=== PATIENT | female | born 1990 | race Caucasian/White ===

== ENCOUNTER 2019-05-01 14:46 | Emergency (ER) | payer SELFPAY ==
[2019-05-01 14:59] VITALS: BP 190/108; PULSE 83; RESP 18; TEMP 36.7; O2SAT 95; BMI 49.9
[2019-05-01 18:26] LABS: Basophils % 0.4 %; Eosinophils # 0.2 10^3/uL (0.0-0.8); Eosinophils % 2.5 %; Hemoglobin 13.7 g/dL (11.5-15.3); Lymphocytes # 2.8 10^3/uL (0.8-4.8); Mean Corpuscular HGB Conc 31.9 g/dL (30.0-36.0); Mean Corpuscular Hemoglobin 28.1 pg (28.0-34.0); Mean Corpuscular Volume 88.3 fL (81-99); Mean Platelet Volume 10.1 fL (7.4-10.4); Monocytes # 0.5 10^3/uL (0.2-0.9); Monocytes % 6.4 %; Neutrophils # 3.7 10^3/uL (1.8-7.7); Neutrophils % 51.4 %; Nucleated Red Blood Cells % 0 %; Platelet Count 298 10^3/cmm (130-400); Red Blood Count 4.87 10^6/uL (4.1-5.3); Red Cell Distribution Width 12.5 % (12.1-15.1); White Blood Count 7.2 10^3/uL (4.0-10.0)
[2019-05-01 18:33] LABS: INR 1.04 (0.8-1.2); Partial Thromboplastin Time 26.3 SECONDS (23.9-36.7)
[2019-05-01 18:41] LABS: Alanine Aminotransferase 23 U/L (0-33); Albumin Level 4.3 g/dL (3.5-5.2); Alkaline Phosphatase 105 IU/L (35-105); Aspartate Amino Transferase 12 U/L (0-32); Blood Urea Nitrogen 9 mg/dL (6-20); Calcium 9.7 mg/Dl (8.6-10.0); Carbon Dioxide 25 mmol/L (22-29); Chloride 100 mmol/L (98-107); Globulin 2.8 g/dL (1.3-4.6); Glucose 246 mg/dL (74-109); Sodium 135 mmol/L (136-145); Total Bilirubin 0.3 mg/dL (0.15-1.2); Total Protein 7.1 g/dL (6.6-8.7)
--- NOTE | 2019-05-01 19:01 | ED_ITS ---
Documented by User: GRADY Brooks 05/03/19 02:02 HPI - GI Bleed General: Chief complaint: GI Bleed Stated complaint: possible blood in puke Time Seen by Provider: 05/01/19 19:01 History of Present Illness: HPI Narrative: Patient is a 29-year-old female comes into the emergency department with nausea, vomiting, diarrhea for the past 3 days. Has not been able to keep any food or drink down for the past 3 days. She says she's vomited 4-5+ times a day and diarrhea 4-5+ times a day for the past 3 days. Diarrhea is just brown liquid blood in the stool. Vomit today appeared to have some red color possible blood in it. Denies eating anything that could've given her any food poisoning and denies any sick contacts that she is aware of. Patient states she does have some right flank pain that started within the last day or 2.Denies any fever, chills, shortness of breath, chest pain, sore throat, nasal drainage, cough, abdominal pain, hematuria, dysuria, Vaginal discharge. Review of Systems General: Reports: 10 or more systems reviewed and unremarkable except in HPI and below PFSH ED PFSH: Statuses (acute, chronic, etc) shown below reflect problem list status as previously entered and may not be historically accurate Social History Smoking and tobacco status: current every day smoker Female Reproductive History: Date of last menstrual period: 04/17/19 Physical Exam Const: COMMON NORMALS: oriented x3 HENMT: COMMON NORMALS: normocephalic HEAD & SCALP: normocephalic MOUTH: moist mucous membranes abnormal (Mild dehydration) THROAT: posterior oropharynx normal and uvula midline Neck/C-Spine: COMMON NORMALS: supple GENERAL: Yes normal visual inspection Resp: COMMON NORMALS: normal respiratory effort, no retractions, no use of accessory muscles and clear to auscultation bilaterally AUSCULTATION: clear to auscultation bilaterally Cardio: COMMON NORMALS: regular rate, regular rhythm, S1 normal heart sound, S2 normal heart sound, no gallops, no clicks, no murmurs and peripheral pulses 2+ throughout RATE: regular rate RHYTHM: regular rhythm HEART SOUNDS: S1 normal and S2 normal PERIPHERAL PULSES: pulses 2+ throughout GI: COMMON NORMALS: normal to inspection, nondistended, normoactive bowel margarito nds, soft to palpation, non-tender and no masses PALPATION: Yes soft : BLADDER/KIDNEY EXAM: Yes CVA tenderness Back/Pelvis: GENERAL BACK: Yes CVA tenderness CVA tenderness: right and Yes tenderness (Right flank) Neuro: COMMON NORMALS: oriented x3 Course ED course: Patient had no episodes of vomiting while in the ED and was able to keep PO fluids down. Vital Signs: Vital signs: Vital Signs Temperature 98.1 F 05/01/19 14:59 Pulse Rate 76 05/02/19 00:49 Respiratory Rate 16 05/02/19 00:49 Blood Pressure 163/91 05/02/19 00:49 Pulse Oximetry 95 05/02/19 00:49 MDM - GI Bleed Lab Data: Attestation: I reviewed the patient's lab results. Labs: Lab Results 05/01/19 05/01/19 05/01/19 Range/Units 17:57 17:57 17:57 WBC 7.2 (4.0-10.0) 10^3/ uL RBC 4.87 (4.1-5.3) 10^6/u L Hgb 13.7 (11.5-15.3) g/dL Hct 43.0 (37.0-47.0) % MCV 88.3 (81-99) fL MCH 28.1 (28.0-34.0) pg MCHC 31.9 (30.0-36.0) g/dL RDW 12.5 (12.1-15.1) % Plt Count 298 (130-400) 10^3/c mm MPV 10.1 (7.4-10.4) fL Neut % (Auto) 51.4 % Lymph % (Auto) 39.0 % [place] % (Auto) 6.4 % Eos % (Auto) 2.5 % Baso % (Auto) 0.4 % Neut # (Auto) 3.7 (1.8-7.7) 10^3/u L Lymph # (Auto) 2.8 (0.8-4.8) 10^3/u L [place] # (Auto) 0.5 (0.2-0.9) 10^3/u L Eos # (Auto) 0.2 (0.0-0.8) 10^3/u L Baso # (Auto) 0.0 (0.0-0.1) 10^3/u L Nucleated RBC % (a uto) 0 % Nucleated RBCs # 0.0 /100WBC PT 13.90 H (10.5-13.3) SECO NDS INR 1.04 (0.8-1.2) APTT 26.3 (23.9-36.7) SECO NDS Sodium 135 L (136-145) mmol/L Potassium 4.0 (3.5-5.1) mmol/L Chloride 100 (98-107) mmol/L Carbon Dioxide 25 (22-29) mmol/L Anion Gap 14.0 (5-19) BUN 9 (6-20) mg/dL Creatinine 0.5 (0.5-0.9) mg/dL GFR Calculation 148.0 H (90-130) mL/min Glucose 246 H (74-109) mg/dL Calcium 9.7 (8.6-10.0) mg/Dl Total Bilirubin 0.3 (0.15-1.2) mg/dL AST 12 (0-32) U/L ALT 23 (0-33) U/L Alkaline Phosphata se 105 (35-105) IU/L Total Protein 7.1 (6.6-8.7) g/dL Albumin 4.3 (3.5-5.2) g/dL Globulin 2.8 (1.3-4.6) g/dL HCG, Qual (Negative) Urine Color (Yellow) Urine Appearance (CLEAR) Urine pH (5-7) Ur Specific Gravit y (1.005-1.030) Urine Protein (Negative) Urine Glucose (UA) (Normal) Urine Ketones (Negative) Urine Occult Blood (Negative) Urine Nitrate (Negative) Urine Bilirubin (NEGATIVE) Urine Urobilinogen (Negative) mg/dL Ur Leukocyte Camille ase (Negative) Urine RBC (0-2) /hpf Urine WBC (0-5) /hpf Ur Squamous Epith Cells (0-5) Urine Bacteria (NONE) Urine Mucus Blood Type Antibody Screen 05/01/19 05/01/19 05/01/19 Range/Units 17:57 17:57 20:05 WBC (4.0-10.0) 10^3/ uL RBC (4.1-5.3) 10^6/u L Hgb (11.5-15.3) g/dL Hct (37.0-47.0) % MCV (81-99) fL MCH (28.0-34.0) pg MCHC (30.0-36.0) g/dL RDW (12.1-15.1) % Plt Count (130-400) 10^3/c mm MPV (7.4-10.4) fL Neut % (Auto) % Lymph % (Auto) % [place] % (Auto) % Eos % (Auto) % Baso % (Auto) % Neut # (Auto) (1.8-7.7) 10^3/u L Lymph # (Auto) (0.8-4.8) 10^3/u L [place] # (Auto) (0.2-0.9) 10^3/u L Eos # (Auto) (0.0-0.8) 10^3/u L Baso # (Auto) (0.0-0.1) 10^3/u L Nucleated RBC % (a uto) % Nucleated RBCs # /100WBC PT (10.5-13.3) SECO NDS INR (0.8-1.2) APTT (23.9-36.7) SECO NDS Sodium (136-145) mmol/L Potassium (3.5-5.1) mmol/L Chloride (98-107) mmol/L Carbon Dioxide (22-29) mmol/L Anion Gap (5-19) BUN (6-20) mg/dL Creatinine (0.5-0.9) mg/dL GFR Calculation (90-130) mL/min Glucose (74-109) mg/dL Calcium (8.6-10.0) mg/Dl Total Bilirubin (0.15-1.2) mg/dL AST (0-32) U/L ALT (0-33) U/L Alkaline Phosphata se (35-105) IU/L Total Protein (6.6-8.7) g/dL Albumin (3.5-5.2) g/dL Globulin (1.3-4.6) g/dL HCG, Qual Negative (Negative) Urine Color Yellow (Yellow) Urine Appearance Cloudy (CLEAR) Urine pH 5 (5-7) Ur Specific Gravit y 1.330 H (1.005-1.030) Urine Protein 1+ H (Negative) Urine Glucose (UA) 4+ H (Normal) Urine Ketones 1+ H (Negative) Urine Occult Blood Neg (Negative) Urine Nitrate Negative (Negative) Urine Bilirubin Neg (NEGATIVE) Urine Urobilinogen Norm (Negative) mg/dL Ur Leukocyte Camille ase Negative (Negative) Urine RBC 0-4 H (0-2) /hpf Urine WBC 15-25 H (0-5) /hpf Ur Squamous Epith Cells 0-4 H (0-5) Urine Bacteria 1+ H (NONE) Urine Mucus 1+ Blood Type O Positive Antibody Screen Negative Discharge Plan Discharge Patient Disposition: Home, Self-Care Clinical Impression: Urinary tract bacterial infections Condition: Stable Prescriptions: New Zofran 4 mg tablet 4 mg PO DAILY Qty: 10 RF: 0 Keflex 500 mg capsule 500 mg PO BID 7 Days Qty: 14 RF: 0 Discharge Orders: Discharge Order (Routine); Ordered 05/02/19 Ordered By: Nicholas Dhillon Discharge Diet: Advance as tolerated Discharge Activity: Increase activity as tolerated Activity Restrictions/Additional Instructions: Follow-up with her primary care doctor in 5-7 days for reevaluation. Take Tylenol or ibuprofen as needed for fevers and pain. Take full course of antib iotic as prescribed. Take the prescribed Zofran as needed for nausea. Make sure to drink plenty of fluids and stay hydrated. Return to ED if symptoms worsen. Discharge Date/Time: 05/02/19 00:50 Coding Level of Care Code ED Tune Up Mechanic for Chg Fwd Documented by User: Pamela Shabazz 05/05/19 15:32 HPI - GI Bleed General: Chief complaint: GI Bleed Stated complaint: possible blood in puke Time Seen by Provider: 05/01/19 19:01 PFSH ED PFSH: Statuses (acute, chronic, etc) shown below reflect problem list status as previously entered and may not be historically accurate Social History Smoking and tobacco status: current every day smoker Course Vital Signs: Vital signs: Vital Signs Temperature 98.1 F 05/01/19 14:59 Pulse Rate 76 05/02/19 00:49 Respiratory Rate 16 05/02/19 00:49 Blood Pressure 163/91 05/02/19 00:49 Pulse Oximetry 95 05/02/19 00:49 MDM - GI Bleed Lab Data: Labs: Lab Results 05/01/19 05/01/19 05/01/19 Range/Units 17:57 17:57 17:57 WBC 7.2 (4.0-10.0) 10^3/ uL RBC 4.87 (4.1-5.3) 10^6/u L Hgb 13.7 (11.5-15.3) g/dL Hct 43.0 (37.0-47.0) % MCV 88.3 (81-99) fL MCH 28.1 (28.0-34.0) pg MCHC 31.9 (30.0-36.0) g/dL RDW 12.5 (12.1-15.1) % Plt Count 298 (130-400) 10^3/c mm MPV 10.1 (7.4-10.4) fL Neut % (Auto) 51.4 % Lymph % (Auto) 39.0 % [place] % (Auto) 6.4 % Eos % (Auto) 2.5 % Baso % (Auto) 0.4 % Neut # (Auto) 3.7 (1.8-7.7) 10^3/u L Lymph # (Auto) 2.8 (0.8-4.8) 10^3/u L [place] # (Auto) 0.5 (0.2-0.9) 10^3/u L Eos # (Auto) 0.2 (0.0-0.8) 10^3/u L Baso # (Auto) 0.0 (0.0-0.1) 10^3/u L Nucleated RBC % (a uto) 0 % Nucleated RBCs # 0.0 /100WBC PT 13.90 H (10.5-13.3) SECO NDS INR 1.04 (0.8-1.2) APTT 26.3 (23.9-36.7) SECO NDS Sodium 135 L (136-145) mmol/L Potassium 4.0 (3.5-5.1) mmol/L Chloride 100 (98-107) mmol/L Carbon Dioxide 25 (22-29) mmol/L Anion Gap 14.0 (5-19) BUN 9 (6-20) mg/dL Creatinine 0.5 (0.5-0.9) mg/dL GFR Calculation 148.0 H (90-130) mL/min Glucose 246 H (74-109) mg/dL Calcium 9.7 (8.6-10.0) mg/Dl Total Bilirubin 0.3 (0.15-1.2) mg/dL AST 12 (0-32) U/L ALT 23 (0-33) U/L Alkaline Phosphata se 105 (35-105) IU/L Total Protein 7.1 (6.6-8.7) g/dL Albumin 4.3 (3.5-5.2) g/dL Globulin 2.8 (1.3-4.6) g/dL HCG, Qual (Negative) Urine Color (Yellow) Urine Appearance (CLEAR) Urine pH (5-7) Ur Specific Gravit y (1.005-1.030) Urine Protein (Negative) Urine Glucose (UA) (Normal) Urine Ketones (Negative) Urine Occult Blood (Negative) Urine Nitrate (Negative) Urine Bilirubin (NEGATIVE) Urine Urobilinogen (Negative) mg/dL Ur Leukocyte Camille ase (Negative) Urine RBC (0-2) /hpf Urine WBC (0-5) /hpf Ur Squamous Epith Cells (0-5) Urine Bacteria (NONE) Urine Mucus Blood Type Antibody Screen 05/01/19 05/01/19 05/01/19 Range/Units 17:57 17:57 20:05 WBC (4.0-10.0) 10^3/ uL RBC (4.1-5.3) 10^6/u L Hgb (11.5-15.3) g/dL Hct (37.0-47.0) % MCV (81-99) fL MCH (28.0-34.0) pg MCHC (30.0-36.0) g/dL RDW (12.1-15.1) % Plt Count (130-400) 10^3/c mm MPV (7.4-10.4) fL Neut % (Auto) % Lymph % (Auto) % [place] % (Auto) % Eos % (Auto) % Baso % (Auto) % Neut # (Auto) (1.8-7.7) 10^3/u L Lymph # (Auto) (0.8-4.8) 10^3/u L [place] # (Auto) (0.2-0.9) 10^3/u L Eos # (Auto) (0.0-0.8) 10^3/u L Baso # (Auto) (0.0-0.1) 10^3/u L Nucleated RBC % (a uto) % Nucleated RBCs # /100WBC PT (10.5-13.3) SECO NDS INR (0.8-1.2) APTT (23.9-36.7) SECO NDS Sodium (136-145) mmol/L Potassium (3.5-5.1) mmol/L Chloride (98-107) mmol/L Carbon Dioxide (22-29) mmol/L Anion Gap (5-19) BUN (6-20) mg/dL Creatinine (0.5-0.9) mg/dL GFR Calculation (90-130) mL/min Glucose (74-109) mg/dL Calcium (8.6-10.0) mg/Dl Total Bilirubin (0.15-1.2) mg/dL AST (0-32) U/L ALT (0-33) U/L Alkaline Phosphata se (35-105) IU/L Total Protein (6.6-8.7) g/dL Albumin (3.5-5.2) g/dL Globulin (1.3-4.6) g/dL HCG, Qual Negative (Negative) Urine Color Yellow (Yellow) Urine Appearance Cloudy (CLEAR) Urine pH 5 (5-7) Ur Specific Gravit y 1.330 H (1.005-1.030) Urine Protein 1+ H (Negative) Urine Glucose (UA) 4+ H (Normal) Urine Ketones 1+ H (Negative) Urine Occult Blood Neg (Negative) Urine Nitrate Negative (Negative) Urine Bilirubin Neg (NEGATIVE) Urine Urobilinogen Norm (Negative) mg/dL Ur Leukocyte Camille ase Negative (Negative) Urine RBC 0-4 H (0-2) /hpf Urine WBC 15-25 H (0-5) /hpf Ur Squamous Epith Cells 0-4 H (0-5) Urine Bacteria 1+ H (NONE) Urine Mucus 1+ Blood Type O Positive Antibody Screen Negative Discharge Plan Discharge Patient Disposition: Home, Self-Care Clinical Impression: Urinary tract bacterial infections Condition: Stable Prescriptions: New Zofran 4 mg tablet 4 mg PO DAILY Qty: 10 RF: 0 Keflex 500 mg capsule 500 mg PO BID 7 Days Qty: 14 RF: 0 Discharge Orders: Discharge Order (Routine); Ordered 05/02/19 Ordered By: Nicholas Dhillon Discharge Diet: Advance as tolerated Discharge Activity: Increase activity as tolerated Activity Restrictions/Additional Instructions: Follow-up with her primary care doctor in 5-7 days for reevaluation. Take Tylenol or ibuprofen as needed for fevers and pain. Take full course of antibiotic as prescribed. Take the prescribed Zofran as needed for nausea. Make sure to drink plenty of fluids and stay hydrated. Return to ED if symptoms worsen. Discharge Date/Time: 05/02/19 00:50 Coding Level of Care Code ED Tune Up Mechanic for Harley Recinos
--- NOTE | 2019-05-01 19:35 | CTR_ITS ---
PROCEDURE INFORMATION: Exam: CT Abdomen And Pelvis With Contrast Exam date and time: 05/01/2019 8:00 PM Age: 29 years old Clinical indication: Patient HX: Nausea and vomiting x 3 days. History of fall a few weeks ago. C/O continued coccyx pain. ; Additional info: Nausea, vomiting, diarrhea TECHNIQUE: Imaging protocol: Computed tomography of the abdomen and pelvis with intravenous contrast. Total DLP: 2114.77 mGy-cm Radiation optimization: All CT scans at this facility use at least one of these dose optimization techniques: automated exposure control; mA and/or kV adjustment per patient size (includes targeted exams where dose is matched to clinical indication); or iterative reconstruction. Contrast material: OMNI 300; Contrast volume: 95 ml; Contrast route: 20G LAC; COMPARISON: CT abdomen pelvis w con* [id number] 06/05/2014 6:53 AM FINDINGS: Mediastinum: A small hiatal hernia is present. Liver: There is a diffuse decrease in hepatic parenchymal density, consistent with fatty infiltration. Gallbladder and bile ducts: Normal. No calcified stones. No ductal dilation. Pancreas: Normal. No ductal dilation. Spleen: Normal. No splenomegaly. Adrenals: Normal. No mass. Kidneys and ureters: There is no evidence of hydronephrosis. There is no evidence of renal calcifications. Stomach and bowel: Unremarkable. No obstruction. No mucosal thickening. Appendix: A normal appendix is identified. Intraperitoneal space: Unremarkable. No free air. No significant fluid collection. Vasculature: There is an incidental retroaortic left renal vein. Lymph nodes: Unremarkable.No enlarged lymph nodes. Bladder: The bladder is decompressed. Reproductive: Unremarkable as visualized. Bones/joints: Unremarkable. No acute fracture. Soft tissues: There is a fat-containing umbilical hernia. CT/CT abdomen pelvis w con* [id number] IMPRESSION: No acute abnormality. No inflammatory changes. Radiation Dose CTDIVOL = (mGy): DLP = 2114.77 (mGy-cm)
[2019-05-01 19:48] LABS: HCG, Serum Qual Negative (Negative)
[2019-05-01] MEDS: ondansetron 2 mg/ML SDV 2 mL 4 MG IVP (19:55)
[2019-05-01] MEDS: sodium chloride 0.9% 1,000 ML 999 ML IV (19:56)
[2019-05-01] MEDS: iohexol 300 mg/mL 100 mL Btl IV (20:25)
[2019-05-01 21:14] LABS: Glucose Urine UA 4+ (Normal); Protein Urine 1+ (Negative); Urine Appearance Cloudy (CLEAR); Urine Color Yellow (Yellow); pH Urine 5 (5-7)
[2019-05-01 21:15] LABS: Bilirubin Urine Neg (NEGATIVE); Blood Urine Neg (Negative); Ketones Urine 1+ (Negative); Leukocyte Esterase Urine Negative (Negative); Mucus Urine 1+; Nitrate Urine Negative (Negative); RBC Urine 0-4 /hpf (0-2); Squamous Epithelial Cell Urine 0-4 (0-5); Urobilinogen Urine Norm (Negative); WBC Urine 15-25 /hpf (0-5)
[2019-05-01 21:16] LABS: Add Urine Culture? No; Bacteria Urine 1+
[2019-05-01] MEDS: ketorolac 30 mg/mL INJ IVP (21:39)
[2019-05-01] MEDS: dexamethasone 10 mg/mL INJ IVP (21:40)
[2019-05-02 00:49] VITALS: BP 163/91; PULSE 76; RESP 16; O2SAT 95
== END 2019-05-02 00:50 | disposition home or self-care (01) ==
PROVIDERS: Emergency Medicine; Emergency Provider Physician Assistant
DX: N39.0 Urinary tract infection, site not specified (principal); F17.210 Nicotine dependence, cigarettes, uncomplicated
CPT/HCPCS: 74177; 80053; 81001; 84703; 85025; 85610; 85730; 86850; 86900; 96360; 96361; 96374; 96375; 99282; J1100; J1885; J2405; J7030; Q9967

== ENCOUNTER 2019-07-04 04:50 | Emergency (ER) | payer SELFPAY ==
[2019-07-04 04:58] VITALS: BP 166/108; PULSE 100; RESP 16; TEMP 37.1; O2SAT 95; BMI 54.1
--- NOTE | 2019-07-04 05:20 | PC.NURSE ---
patient states she was in bed and woke up because she felt like she could not catch her breath and she is having right sided flank/back pain. Patient states she has not had these sort of symptoms before.
[2019-07-04 05:23] VITALS: BP 164/106; PULSE 98; RESP 16; O2SAT 96
--- NOTE | 2019-07-04 05:29 | XRR_ITS ---
PROCEDURE INFORMATION: Exam: XR Chest, 2 Views Exam date and time: 07/04/2019 6:13 AM Age: 29 years old Clinical indication: Cough and shortness of breath; Additional info: SOB TECHNIQUE: Imaging protocol: XR of the chest Views: 2 views. COMPARISON: CR Chest 1 [place] [id number] 03/19/2019 4:11 AM FINDINGS: Lungs: Lungs still clear. Normal lung volumes. Pleural space: No pleural fluid or pneumothorax. Heart/Mediastinum: Still no cardiomegaly. Bones/joints: Old compression fractures. Degeneration of several discs. XR/XR chest 2V* [id number] IMPRESSION: No acute findings.
--- NOTE | 2019-07-04 05:30 | ECG_ITS ---
Measurements Intervals [place] Rate: 99 P: 26 [place]: 147 QRS: 47 QRSD: 96 T: 6 QT: 328 QTc: 422 SINUS RHYTHM Compared to ECG 03/19/2019 06:21:04 Sinus arrhythmia no longer present Electronically Signed On 07-04-2019 13:43:22 CDT by Cortez Marr M.D. [email or web address]
[2019-07-04 06:02] VITALS: BP 143/94; PULSE 98; RESP 16; O2SAT 96
--- NOTE | 2019-07-04 06:05 | W.ED.SOB ---
Documented by User: Suresh Bautista DO 07/04/19 20:27 HPI - SOB/Dyspnea General: Chief Complaint: Shortness of Breath/Dyspnea Stated Complaint: sob Time Seen by Provider: 07/04/19 05:13 History of Present Illness: MD elicited complaint: shortness of breath Exacerbating factors: exertion Relieving factors: nothing Associated symptoms: Reports chest congestion, chest pain, cough and dizziness; Deny abdominal pain, fever(s), nausea, orthopnea, palpitations or vomiting Review of Systems Const: Denies: fever or chills Eyes: Denies: change in vision or blurry vision ENMT: Denies: painful swallowing, swelling of lips/tongue, bleeding gums, dental pain, Change in hearing, nose bleeds, post nasal drip or facial/sinus pain Card: Reports: chest pain and shortness of breath on exertion; Denies: palpitations, irregular heart rhythm, edema, swelling of feet/ankles or shortness of breath when lying down Resp: Reports: chest congestion GI: Denies: abdominal pain, nausea, vomiting, rectal pain, blood in stool or black tarry stool : Denies: painful urination, urinary frequency, urinary urgency or blood in urine Musc: Denies: neck pain, back pain, redness or joint warmth Skin/Breast: Denies: rash, itching or redness Neuro: Reports: dizziness Psych: Denies: anxiety PFSH ED PFSH: Social History Smoking and tobacco status: current every day smoker Female Reproductive History: Date of last menstrual period: 04/17/19 Physical Exam Const: COMMON NORMALS: alert GENERAL APPEARANCE: well developed ORIENTATION/CONSCIOUSNESS: Yes oriented to person, Yes oriented to place and Yes oriented to time HENMT: COMMON NORMALS: normocephalic, external ears normal and external nose normal HEAD & SCALP: normocephalic; no scalp tenderness FACE & SINUS: normal facial exam NOSE: external nose normal and no nasal discharge EXTERNAL EAR: Yes external ears normal MOUTH: tongue normal TEETH & GINGIVA: no abnormal tooth and associated gingiva THROAT: posterior oropharynx normal; no peritonsillar mass Eye: COMMON NORMALS: PERRL, EOMs intact bilaterally and conjunctivae normal EYELID: eyelids normal CONJUNCTIVA: Yes conjunctivae normal PUPIL: Yes PERRL Neck/C-Spine: COMMON NORMALS: full ROM GENERAL: No tracheal deviation CERVICAL SPINE: Yes normal cervical lordosis and No cervical spine tenderness Chest: COMMONS NORMALS: inspection of chest normal CHEST: Yes tenderness Resp: COMMON NORMALS: clear to auscultation bilaterally EFFORT & INSPECTION: No tachypneic, No respiratory distress, No retractions, No uses accessory muscles and No tracheal deviation AUSCULTATION: clear to auscultation bilaterally, no rhonchi, no wheezes and lung sounds not diminished Cardio: COMMON NORMALS: regular rate and regular rhythm RATE: regular rate and tachycardic RHYTHM: regular rhythm HEART SOUNDS: no murmurs PERIPHERAL PULSES: radial pulses present GI: INSPECTION: No abdominal distension AUSCULTATION: No hyperactive bowel sounds and No hypoactive bowel sounds PALPATION: No guarding and No rigid PERCUSSION: no dullness to percussion and no tympanic to percussion : COMMON NORMALS: Yes no CVA tenderness BLADDER/KIDNEY EXAM: Yes no CVA tenderness Back/Pelvis: COMMON NORMALS: no CVA tenderness Neuro: SENSORIUM/ORIENTATION: Yes alert, Yes oriented to person, Yes oriented to place and Yes oriented to time Psych: COMMON NORMALS: mental status grossly normal and speech normal SPEECH: Yes normal speech Skin: COMMON NORMALS: no rashes or lesions noted GENERAL SKIN EXAM: no rashes or lesions noted Course Vital Signs: Vital signs: Vital Signs Temperature 98.7 F 07/04/19 04:58 Pulse Rate 80 07/04/19 07:44 Respiratory Rate 18 07/04/19 06:30 Blood Pressure 122/81 07/04/19 07:44 Pulse Oximetry 96 07/04/19 07:44 MDM - SOB/Dyspnea MDM Narrative: Medical decision making narrative: Patient presents with pleuritic chest pain, shortness of breath. Her d-dimer is negative. Her troponin is pending. Her EKG shows sinus tachycardia with a rate of 100 and a normal axis with no ST changes. Her flu is pending. She will be checked out to Dr. Crum. Lab Data: Labs: Lab Results 07/04/19 07/04/19 07/04/19 Range/Units 05:53 05:54 05:58 WBC 4.9 (4.0-10.0) 10^3/ uL RBC 4.84 (4.1-5.3) 10^6/u L Hgb 14.3 (11.5-15.3) g/dL Hct 43.5 (37.0-47.0) % MCV 89.9 (81-99) fL MCH 29.5 (28.0-34.0) pg MCHC 32.9 (30.0-36.0) g/dL RDW 12.6 (12.1-15.1) % Plt Count 233 (130-400) 10^3/c mm MPV 10.3 (7.4-10.4) fL Neut % (Auto) 65.1 % Lymph % (Auto) 19.8 % Walton % (Auto) 13.1 % Eos % (Auto) 1.4 % Baso % (Auto) 0.4 % Neut # (Auto) 3.2 (1.8-7.7) 10^3/u L Lymph # (Auto) 1.0 (0.8-4.8) 10^3/u L Walton # (Auto) 0.6 (0.2-0.9) 10^3/u L Eos # (Auto) 0.1 (0.0-0.8) 10^3/u L Baso # (Auto) 0.0 (0.0-0.1) 10^3/u L Nucleated RBC % (a uto) 0 % Nucleated RBCs # 0.0 /100WBC D-Dimer (0-0.59) ug/mIFE U Specimen Type Sample Site ABG pH (7.35-7.45) ABG pCO2 (35-45) mmHg ABG pO2 (80.0-100.0) mmH g ABG HCO3 (22-26) mmol/L ABG O2 Saturation ABG Base Excess (-2.0-2.0) mmol/ L Ivan Test A-a O2 Gradient (5-10) mmHg Hematocrit (37-47) % Hgb O2 Saturation (95-100) % Carboxyhemoglobin (0.4-20.1) %THgb Methemoglobin (0.4-1.5) % Total Hemoglobin (12-16) g/dL Ionized Calcium (1.1-1.4) mmol/L O2 Delivery Device FiO2 % Crew Caller ID Sodium (136-145) mmol/L Potassium (3.5-5.1) mmol/L Chloride (98-107) mmol/L Carbon Dioxide (22-29) mmol/L Anion Gap (5-19) BUN (6-20) mg/dL Creatinine (0.5-0.9) mg/dL GFR Calculation (90-130) mL/min Glucose (65-115) mg/dL POC Glucose (70-110) mg/dL Calculated Osmolal ity (285-295) mOsm/k g Lactate (0.5-2.2) mmol/L Calcium (8.5-10.5) mg/dL Total Bilirubin (0.15-1.2) mg/dL AST (0-32) U/L ALT (0-33) U/L Alkaline Phosphata se (35-105) IU/L Troponin T Baselin e (0-10) ng/mL C-Reactive Protein (0.0-4.9) mg/L Total Protein (6.6-8.7) g/dL Albumin (3.5-5.2) g/dL Globulin (1.3-4.6) g/dL Procalcitonin (0-0.5) ng/mL HCG, Qual (Negative) Urine Color Yellow (Yellow) Urine Appearance Sl hazy (CLEAR) Urine pH 7 (5-7) Ur Specific Gravit y 1.010 (1.005-1.030) Urine Protein Neg (Negative) Urine Glucose (UA) 4+ H (Normal) Urine Ketones Negative (Negative) Urine Blood Neg (Negative) Urine Nitrate Negative (Negative) Urine Bilirubin Neg (NEGATIVE) Urine Urobilinogen Norm (Negative) mg/dL Ur Leukocyte Camille ase Negative (Negative) Urine RBC Rare (0-2) /hpf Urine WBC 5-10 H (0-5) /hpf Ur Squamous Epith Cells 15-25 H (0-5) Urine Bacteria Trace (NONE) Urine Mucus Trace Serum Ketones (Negative) Influenza Type A A g Negative (Negative) POC Influenza B Ag Negative (Negative) 07/04/19 07/04/19 07/04/19 Range/Units 05:58 05:58 05:58 WBC (4.0-10.0) 10^3/ uL RBC (4.1-5.3) 10^6/u L Hgb (11.5-15.3) g/dL Hct (37.0-47.0) % MCV (81-99) fL MCH (28.0-34.0) pg MCHC (30.0-36.0) g/dL RDW (12.1-15.1) % Plt Count (130-400) 10^3/c mm MPV (7.4-10.4) fL Neut % (Auto) % Lymph % (Auto) % Walton % (Auto) % Eos % (Auto) % Baso % (Auto) % Neut # (Auto) (1.8-7.7) 10^3/u L Lymph # (Auto) (0.8-4.8) 10^3/u L Walton # (Auto) (0.2-0.9) 10^3/u L Eos # (Auto) (0.0-0.8) 10^3/u L Baso # (Auto) (0.0-0.1) 10^3/u L Nucleated RBC % (a uto) % Nucleated RBCs # /100WBC D-Dimer 0.56 (0-0.59) ug/mIFE U Specimen Type Sample Site ABG pH (7.35-7.45) ABG pCO2 (35-45) mmHg ABG pO2 (80.0-100.0) mmH g ABG HCO3 (22-26) mmol/L ABG O2 Saturation ABG Base Excess (-2.0-2.0) mmol/ L Ivan Test A-a O2 Gradient (5-10) mmHg Hematocrit (37-47) % Hgb O2 Saturation (95-100) % Carboxyhemoglobin (0.4-20.1) %THgb Methemoglobin (0.4-1.5) % Total Hemoglobin (12-16) g/dL Ionized Calcium (1.1-1.4) mmol/L O2 Delivery Device FiO2 % Crew Caller ID Sodium 137 (136-145) mmol/L Potassium 4.4 (3.5-5.1) mmol/L Chloride 102 (98-107) mmol/L Carbon Dioxide 27 (22-29) mmol/L Anion Gap 12.4 (5-19) BUN 10 (6-20) mg/dL Creatinine 0.5 (0.5-0.9) mg/dL GFR Calculation 148.0 H (90-130) mL/min Glucose 276 H (65-115) mg/dL POC Glucose (70-110) mg/dL Calculated Osmolal ity 290 (285-295) mOsm/k g Lactate 1.1 (0.5-2.2) mmol/L Calcium 9.2 (8.5-10.5) mg/dL Total Bilirubin 0.2 (0.15-1.2) mg/dL AST 19 (0-32) U/L ALT 26 (0-33) U/L Alkaline Phosphata se 96 (35-105) IU/L Troponin T Baselin e (0-10) ng/mL C-Reactive Protein 7.9 H (0.0-4.9) mg/L Total Protein 7.0 (6.6-8.7) g/dL Albumin 4.0 (3.5-5.2) g/dL Globulin 3.0 (1.3-4.6) g/dL Procalcitonin 0.09 (0-0.5) ng/mL HCG, Qual (Negative) Urine Color (Yellow) Urine Appearance (CLEAR) Urine pH (5-7) Ur Specific Gravit y (1.005-1.030) Urine Protein (Negative) Urine Glucose (UA) (Normal) Urine Ketones (Negative) Urine Blood (Negative) Urine Nitrate (Negative) Urine Bilirubin (NEGATIVE) Urine Urobilinogen (Negative) mg/dL Ur Leukocyte Camille ase (Negative) Urine RBC (0-2) /hpf Urine WBC (0-5) /hpf Ur Squamous Epith Cells (0-5) Urine Bacteria (NONE) Urine Mucus Serum Ketones (Negative) Influenza Type A A g (Negative) POC Influenza B Ag (Negative) 07/04/19 07/04/19 07/04/19 Range/Units 05:58 05:58 05:58 WBC (4.0-10.0) 10^3/ uL RBC (4.1-5.3) 10^6/u L Hgb (11.5-15.3) g/dL Hct (37.0-47.0) % MCV (81-99) fL MCH (28.0-34.0) pg MCHC (30.0-36.0) g/dL RDW (12.1-15.1) % Plt Count (130-400) 10^3/c mm MPV (7.4-10.4) fL Neut % (Auto) % Lymph % (Auto) % Walton % (Auto) % Eos % (Auto) % Baso % (Auto) % Neut # (Auto) (1.8-7.7) 10^3/u L Lymph # (Auto) (0.8-4.8) 10^3/u L Walton # (Auto) (0.2-0.9) 10^3/u L Eos # (Auto) (0.0-0.8) 10^3/u L Baso # (Auto) (0.0-0.1) 10^3/u L Nucleated RBC % (a uto) % Nucleated RBCs # /100WBC D-Dimer (0-0.59) ug/mIFE U Specimen Type Sample Site ABG pH (7.35-7.45) ABG pCO2 (35-45) mmHg ABG pO2 (80.0-100.0) mmH g ABG HCO3 (22-26) mmol/L ABG O2 Saturation ABG Base Excess (-2.0-2.0) mmol/ L Ivan Test A-a O2 Gradient (5-10) mmHg Hematocrit (37-47) % Hgb O2 Saturation (95-100) % Carboxyhemoglobin (0.4-20.1) %THgb Methemoglobin (0.4-1.5) % Total Hemoglobin (12-16) g/dL Ionized Calcium (1.1-1.4) mmol/L O2 Delivery Device FiO2 % Crew Caller ID Sodium (136-145) mmol/L Potassium (3.5-5.1) mmol/L Chloride (98-107) mmol/L Carbon Dioxide (22-29) mmol/L Anion Gap (5-19) BUN (6-20) mg/dL Creatinine (0.5-0.9) mg/dL GFR Calculation (90-130) mL/min Glucose (65-115) mg/dL POC Glucose (70-110) mg/dL Calculated Osmolal ity (285-295) mOsm/k g Lactate (0.5-2.2) mmol/L Calcium (8.5-10.5) mg/dL Total Bilirubin (0.15-1.2) mg/dL AST (0-32) U/L ALT (0-33) U/L Alkaline Phosphata se (35-105) IU/L Troponin T Baselin e 6 (0-10) ng/mL C-Reactive Protein (0.0-4.9) mg/L Total Protein (6.6-8.7) g/dL Albumin (3.5-5.2) g/dL Globulin (1.3-4.6) g/dL Procalcitonin (0-0.5) ng/mL HCG, Qual Negative (Negative) Urine Color (Yellow) Urine Appearance (CLEAR) Urine pH (5-7) Ur Specific Gravit y (1.005-1.030) Urine Protein (Negative) Urine Glucose (UA) (Normal) Urine Ketones (Negative) Urine Blood (Negative) Urine Nitrate (Negative) Urine Bilirubin (NEGATIVE) Urine Urobilinogen (Negative) mg/dL Ur Leukocyte Camille ase (Negative) Urine RBC (0-2) /hpf Urine WBC (0-5) /hpf Ur Squamous Epith Cells (0-5) Urine Bacteria (NONE) Urine Mucus Serum Ketones Negative (Negative) Influenza Type A A g (Negative) POC Influenza B Ag (Negative) 07/04/19 07/04/19 Range/Units 07:17 07:23 WBC (4.0-10.0) 10^3/ uL RBC (4.1-5.3) 10^6/u L Hgb (11.5-15.3) g/dL Hct (37.0-47.0) % MCV (81-99) fL MCH (28.0-34.0) pg MCHC (30.0-36.0) g/dL RDW (12.1-15.1) % Plt Count (130-400) 10^3/c mm MPV (7.4-10.4) fL Neut % (Auto) % Lymph % (Auto) % Walton % (Auto) % Eos % (Auto) % Baso % (Auto) % Neut # (Auto) (1.8-7.7) 10^3/u L Lymph # (Auto) (0.8-4.8) 10^3/u L Walton # (Auto) (0.2-0.9) 10^3/u L Eos # (Auto) (0.0-0.8) 10^3/u L Baso # (Auto) (0.0-0.1) 10^3/u L Nucleated RBC % (a uto) % Nucleated RBCs # /100WBC D-Dimer (0-0.59) ug/mIFE U Specimen Type Arterial Sample Site Brachial, left ABG pH 7.46 H (7.35-7.45) ABG pCO2 33.2 L (35-45) mmHg ABG pO2 92.3 (80.0-100.0) mmH g ABG HCO3 23.7 (22-26) mmol/L ABG O2 Saturation 98.6 ABG Base Excess 0.5 (-2.0-2.0) mmol/ L Ivan Test Pos A-a O2 Gradient 16.0 H (5-10) mmHg Hematocrit 44.0 (37-47) % Hgb O2 Saturation 97.0 (95-100) % Carboxyhemoglobin 0.8 (0.4-20.1) %THgb Methemoglobin 0.7 (0.4-1.5) % Total Hemoglobin 14.3 (12-16) g/dL Ionized Calcium 1.2 (1.1-1.4) mmol/L O2 Delivery Device Room air FiO2 21.0 % Crew Caller ID cak Sodium 135.0 (136-145) mmol/L Potassium 4.3 (3.5-5.1) mmol/L Chloride (98-107) mmol/L Carbon Dioxide (22-29) mmol/L Anion Gap (5-19) BUN (6-20) mg/dL Creatinine (0.5-0.9) mg/dL GFR Calculation (90-130) mL/min Glucose 269.0 H (65-115) mg/dL POC Glucose 241 (70-110) mg/dL Calculated Osmolal ity (285-295) mOsm/k g Lactate (0.5-2.2) mmol/L Calcium (8.5-10.5) mg/dL Total Bilirubin (0.15-1.2) mg/dL AST (0-32) U/L ALT (0-33) U/L Alkaline Phosphata se (35-105) IU/L Troponin T Baselin e (0-10) ng/mL C-Reactive Protein (0.0-4.9) mg/L Total Protein (6.6-8.7) g/dL Albumin (3.5-5.2) g/dL Globulin (1.3-4.6) g/dL Procalcitonin (0-0.5) ng/mL HCG, Qual (Negative) Urine Color (Yellow) Urine Appearance (CLEAR) Urine pH (5-7) Ur Specific Gravit y (1.005-1.030) Urine Protein (Negative) Urine Glucose (UA) (Normal) Urine Ketones (Negative) Urine Blood (Negative) Urine Nitrate (Negative) Urine Bilirubin (NEGATIVE) Urine Urobilinogen (Negative) mg/dL Ur Leukocyte Camille ase (Negative) Urine RBC (0-2) /hpf Urine WBC (0-5) /hpf Ur Squamous Epith Cells (0-5) Urine Bacteria (NONE) Urine Mucus Serum Ketones (Negative) Influenza Type A A g (Negative) POC Influenza B Ag (Negative) Discharge Plan Discharge Patient Disposition: Home, Self-Care Clinical Impression: Strain of thoracic back region, Diabetes Condition: Stable Prescriptions: New metformin 750 mg tablet extended release 24 hr 750 mg PO DAILY Qty: 14 RF: 0 diclofenac sodium 75 mg tablet,delayed release (DR/EC) 75 mg PO Q12H PRN (Reason: pain) Qty: 30 RF: 0 No Action ondansetron HCl [Zofran] 4 mg tablet 4 mg PO DAILY Qty: 10 RF: 0 Discharge Orders: Discharge Order (Routine); Ordered 07/04/19 Ordered By: Roberto Carlos Camacho Discharge Diet: Usual diet Discharge Activity: Increase activity as tolerated Activity Restrictions/Additional Instructions: Very important for you to follow-up with the primary care doctor for your diabetes. We have given you metformin to start for now but you may need further medications. Case management will call to get you set up with a primary care provider. Discharge Date/Time: 07/04/19 07:44 Sign Out Sign Out Data: Patient Sign Out occurred on 07/04/19 at 06:40. Patient's care was discussed, and care was transferred from to Roberto Carlos Camacho DO. Coding Level of Care Code ED [employer] for Chg Fwd Exam Comprehensive Documented by User: Roberto Carlos Camacho DO 07/07/19 00:40 HPI - SOB/Dyspnea General: Chief Complaint: Shortness of Breath/Dyspnea Stated Complaint: sob Time Seen by Provider: 07/04/19 05:13 History of Present Illness: HPI Narrative: 29 yo female, care assumed at change of shift from Dr. Bautista. Pt reports chest pain. Pain is reproducible with deep breath and somewhat with palpation in the R upper back. Pt has been afebrile. EKG initially was normal. Labs reviewed. [facility] ED PFSH: Social History Smoking and tobacco status: current every day smoker Course ED course: Reviewed chart and labs. Pain is reproducible with palpation on the upper back. Her troponins are negative we will discharge her home. Vital Signs: Vital signs: Vital Signs Temperature 98.7 F 07/04/19 04:58 Pulse Rate 80 07/04/19 07:44 Respiratory Rate 18 07/04/19 06:30 Blood Pressure 122/81 07/04/19 07:44 Pulse Oximetry 96 07/04/19 07:44 MDM - SOB/Dyspnea Lab Data: Labs: Lab Results 07/04/19 07/04/19 07/04/19 Range/Units 05:53 05:54 05:58 WBC 4.9 (4.0-10.0) 10^3/ uL RBC 4.84 (4.1-5.3) 10^6/u L Hgb 14.3 (11.5-15.3) g/dL Hct 43.5 (37.0-47.0) % MCV 89.9 (81-99) fL MCH 29.5 (28.0-34.0) pg MCHC 32.9 (30.0-36.0) g/dL RDW 12.6 (12.1-15.1) % Plt Count 233 (130-400) 10^3/c mm MPV 10.3 (7.4-10.4) fL Neut % (Auto) 65.1 % Lymph % (Auto) 19.8 % Walton % (Auto) 13.1 % Eos % (Auto) 1.4 % Baso % (Auto) 0.4 % Neut # (Auto) 3.2 (1.8-7.7) 10^3/u L Lymph # (Auto) 1.0 (0.8-4.8) 10^3/u L Walton # (Auto) 0.6 (0.2-0.9) 10^3/u L Eos # (Auto) 0.1 (0.0-0.8) 10^3/u L Baso # (Auto) 0.0 (0.0-0.1) 10^3/u L Nucleated RBC % (a uto) 0 % Nucleated RBCs # 0.0 /100WBC D-Dimer (0-0.59) ug/mIFE U Specimen Type Sample Site ABG pH (7.35-7.45) ABG pCO2 (35-45) mmHg ABG pO2 (80.0-100.0) mmH g ABG HCO3 (22-26) mmol/L ABG O2 Saturation ABG Base Excess (-2.0-2.0) mmol/ L Ivan Test A-a O2 Gradient (5-10) mmHg Hematocrit (37-47) % Hgb O2 Saturation (95-100) % Carboxyhemoglobin (0.4-20.1) %THgb Methemoglobin (0.4-1.5) % Total Hemoglobin (12-16) g/dL Ionized Calcium (1.1-1.4) mmol/L O2 Delivery Device FiO2 % Crew Caller ID Sodium (136-145) mmol/L Potassium (3.5-5.1) mmol/L Chloride (98-107) mmol/L Carbon Dioxide (22-29) mmol/L Anion Gap (5-19) BUN (6-20) mg/dL Creatinine (0.5-0.9) mg/dL GFR Calculation (90-130) mL/min Glucose (65-115) mg/dL POC Glucose (70-110) mg/dL Calculated Osmolal ity (285-295) mOsm/k g Lactate (0.5-2.2) mmol/L Calcium (8.5-10.5) mg/dL Total Bilirubin (0.15-1.2) mg/dL AST (0-32) U/L ALT (0-33) U/L Alkaline Phosphata se (35-105) IU/L Troponin T Baselin e (0-10) ng/mL C-Reactive Protein (0.0-4.9) mg/L Total Protein (6.6-8.7) g/dL Albumin (3.5-5.2) g/dL Globulin (1.3-4.6) g/dL Procalcitonin (0-0.5) ng/mL HCG, Qual (Negative) Urine Color Yellow (Yellow) Urine Appearance Sl hazy (CLEAR) Urine pH 7 (5-7) Ur Specific Gravit y 1.010 (1.005-1.030) Urine Protein Neg (Negative) Urine Glucose (UA) 4+ H (Normal) Urine Ketones Negative (Negative) Urine Blood Neg (Negative) Urine Nitrate Negative (Negative) Urine Bilirubin Neg (NEGATIVE) Urine Urobilinogen Norm (Negative) mg/dL Ur Leukocyte Camille ase Negative (Negative) Urine RBC Rare (0-2) /hpf Urine WBC 5-10 H (0-5) /hpf Ur Squamous Epith Cells 15-25 H (0-5) Urine Bacteria Trace (NONE) Urine Mucus Trace Serum Ketones (Negative) Influenza Type A A g Negative (Negative) POC Influenza B Ag Negative (Negative) 07/04/19 07/04/19 07/04/19 Range/Units 05:58 05:58 05:58 WBC (4.0-10.0) 10^3/ uL RBC (4.1-5.3) 10^6/u L Hgb (11.5-15.3) g/dL Hct (37.0-47.0) % MCV (81-99) fL MCH (28.0-34.0) pg MCHC (30.0-36.0) g/dL RDW (12.1-15.1) % Plt Count (130-400) 10^3/c mm MPV (7.4-10.4) fL Neut % (Auto) % Lymph % (Auto) % Walton % (Auto) % Eos % (Auto) % Baso % (Auto) % Neut # (Auto) (1.8-7.7) 10^3/u L Lymph # (Auto) (0.8-4.8) 10^3/u L Walton # (Auto) (0.2-0.9) 10^3/u L Eos # (Auto) (0.0-0.8) 10^3/u L Baso # (Auto) (0.0-0.1) 10^3/u L Nucleated RBC % (a uto) % Nucleated RBCs # /100WBC D-Dimer 0.56 (0-0.59) ug/mIFE U Specimen Type Sample Site ABG pH (7.35-7.45) ABG pCO2 (35-45) mmHg ABG pO2 (80.0-100.0) mmH g ABG HCO3 (22-26) mmol/L ABG O2 Saturation ABG Base Excess (-2.0-2.0) mmol/ L Ivan Test A-a O2 Gradient (5-10) mmHg Hematocrit (37-47) % Hgb O2 Saturation (95-100) % Carboxyhemoglobin (0.4-20.1) %THgb Methemoglobin (0.4-1.5) % Total Hemoglobin (12-16) g/dL Ionized Calcium (1.1-1.4) mmol/L O2 Delivery Device FiO2 % Crew Caller ID Sodium 137 (136-145) mmol/L Potassium 4.4 (3.5-5.1) mmol/L Chloride 102 (98-107) mmol/L Carbon Dioxide 27 (22-29) mmol/L Anion Gap 12.4 (5-19) BUN 10 (6-20) mg/dL Creatinine 0.5 (0.5-0.9) mg/dL GFR Calculation 148.0 H (90-130) mL/min Glucose 276 H (65-115) mg/dL POC Glucose (70-110) mg/dL Calculated Osmolal ity 290 (285-295) mOsm/k g Lactate 1.1 (0.5-2.2) mmol/L Calcium 9.2 (8.5-10.5) mg/dL Total Bilirubin 0.2 (0.15-1.2) mg/dL AST 19 (0-32) U/L ALT 26 (0-33) U/L Alkaline Phosphata se 96 (35-105) IU/L Troponin T Baselin e (0-10) ng/mL C-Reactive Protein 7.9 H (0.0-4.9) mg/L Total Protein 7.0 (6.6-8.7) g/dL Albumin 4.0 (3.5-5.2) g/dL Globulin 3.0 (1.3-4.6) g/dL Procalcitonin 0.09 (0-0.5) ng/mL HCG, Qual (Negative) Urine Color (Yellow) Urine Appearance (CLEAR) Urine pH (5-7) Ur Specific Gravit y (1.005-1.030) Urine Protein (Negative) Urine Glucose (UA) (Normal) Urine Ketones (Negative) Urine Blood (Negative) Urine Nitrate (Negative) Urine Bilirubin (NEGATIVE) Urine Urobilinogen (Negative) mg/dL Ur Leukocyte Camille ase (Negative) Urine RBC (0-2) /hpf Urine WBC (0-5) /hpf Ur Squamous Epith Cells (0-5) Urine Bacteria (NONE) Urine Mucus Serum Ketones (Negative) Influenza Type A A g (Negative) POC Influenza B Ag (Negative) 07/04/19 07/04/19 07/04/19 Range/Units 05:58 05:58 05:58 WBC (4.0-10.0) 10^3/ uL RBC (4.1-5.3) 10^6/u L Hgb (11.5-15.3) g/dL Hct (37.0-47.0) % MCV (81-99) fL MCH (28.0-34.0) pg MCHC (30.0-36.0) g/dL RDW (12.1-15.1) % Plt Count (130-400) 10^3/c mm MPV (7.4-10.4) fL Neut % (Auto) % Lymph % (Auto) % Walton % (Auto) % Eos % (Auto) % Baso % (Auto) % Neut # (Auto) (1.8-7.7) 10^3/u L Lymph # (Auto) (0.8-4.8) 10^3/u L Walton # (Auto) (0.2-0.9) 10^3/u L Eos # (Auto) (0.0-0.8) 10^3/u L Baso # (Auto) (0.0-0.1) 10^3/u L Nucleated RBC % (a uto) % Nucleated RBCs # /100WBC D-Dimer (0-0.59) ug/mIFE U Specimen Type Sample Site ABG pH (7.35-7.45) ABG pCO2 (35-45) mmHg ABG pO2 (80.0-100.0) mmH g ABG HCO3 (22-26) mmol/L ABG O2 Saturation ABG Base Excess (-2.0-2.0) mmol/ L Ivan Test A-a O2 Gradient (5-10) mmHg Hematocrit (37-47) % Hgb O2 Saturation (95-100) % Carboxyhemoglobin (0.4-20.1) %THgb Methemoglobin (0.4-1.5) % Total Hemoglobin (12-16) g/dL Ionized Calcium (1.1-1.4) mmol/L O2 Delivery Device FiO2 % Crew Caller ID Sodium (136-145) mmol/L Potassium (3.5-5.1) mmol/L Chloride (98-107) mmol/L Carbon Dioxide (22-29) mmol/L Anion Gap (5-19) BUN (6-20) mg/dL Creatinine (0.5-0.9) mg/dL GFR Calculation (90-130) mL/min Glucose (65-115) mg/dL POC Glucose (70-110) mg/dL Calculated Osmolal ity (285-295) mOsm/k g Lactate (0.5-2.2) mmol/L Calcium (8.5-10.5) mg/dL Total Bilirubin (0.15-1.2) mg/dL AST (0-32) U/L ALT (0-33) U/L Alkaline Phosphata se (35-105) IU/L Troponin T Baselin e 6 (0-10) ng/mL C-Reactive Protein (0.0-4.9) mg/L Total Protein (6.6-8.7) g/dL Albumin (3.5-5.2) g/dL Globulin (1.3-4.6) g/dL Procalcitonin (0-0.5) ng/mL HCG, Qual Negative (Negative) Urine Color (Yellow) Urine Appearance (CLEAR) Urine pH (5-7) Ur Specific Gravit y (1.005-1.030) Urine Protein (Negative) Urine Glucose (UA) (Normal) Urine Ketones (Negative) Urine Blood (Negative) Urine Nitrate (Negative) Urine Bilirubin (NEGATIVE) Urine Urobilinogen (Negative) mg/dL Ur Leukocyte Camille ase (Negative) Urine RBC (0-2) /hpf Urine WBC (0-5) /hpf Ur Squamous Epith Cells (0-5) Urine Bacteria (NONE) Urine Mucus Serum Ketones Negative (Negative) Influenza Type A A g (Negative) POC Influenza B Ag (Negative) 07/04/19 07/04/19 Range/Units 07:17 07:23 WBC (4.0-10.0) 10^3/ uL RBC (4.1-5.3) 10^6/u L Hgb (11.5-15.3) g/dL Hct (37.0-47.0) % MCV (81-99) fL MCH (28.0-34.0) pg MCHC (30.0-36.0) g/dL RDW (12.1-15.1) % Plt Count (130-400) 10^3/c mm MPV (7.4-10.4) fL Neut % (Auto) % Lymph % (Auto) % Walton % (Auto) % Eos % (Auto) % Baso % (Auto) % Neut # (Auto) (1.8-7.7) 10^3/u L Lymph # (Auto) (0.8-4.8) 10^3/u L Walton # (Auto) (0.2-0.9) 10^3/u L Eos # (Auto) (0.0-0.8) 10^3/u L Baso # (Auto) (0.0-0.1) 10^3/u L Nucleated RBC % (a uto) % Nucleated RBCs # /100WBC D-Dimer (0-0.59) ug/mIFE U Specimen Type Arterial Sample Site Brachial, left ABG pH 7.46 H (7.35-7.45) ABG pCO2 33.2 L (35-45) mmHg ABG pO2 92.3 (80.0-100.0) mmH g ABG HCO3 23.7 (22-26) mmol/L ABG O2 Saturation 98.6 ABG Base Excess 0.5 (-2.0-2.0) mmol/ L Ivan Test Pos A-a O2 Gradient 16.0 H (5-10) mmHg Hematocrit 44.0 (37-47) % Hgb O2 Saturation 97.0 (95-100) % Carboxyhemoglobin 0.8 (0.4-20.1) %THgb Methemoglobin 0.7 (0.4-1.5) % Total Hemoglobin 14.3 (12-16) g/dL Ionized Calcium 1.2 (1.1-1.4) mmol/L O2 Delivery Device Room air FiO2 21.0 % Crew Caller ID cak Sodium 135.0 (136-145) mmol/L Potassium 4.3 (3.5-5.1) mmol/L Chloride (98-107) mmol/L Carbon Dioxide (22-29) mmol/L Anion Gap (5-19) BUN (6-20) mg/dL Creatinine (0.5-0.9) mg/dL GFR Calculation (90-130) mL/min Glucose 269.0 H (65-115) mg/dL POC Glucose 241 (70-110) mg/dL Calculated Osmolal ity (285-295) mOsm/k g Lactate (0.5-2.2) mmol/L Calcium (8.5-10.5) mg/dL Total Bilirubin (0.15-1.2) mg/dL AST (0-32) U/L ALT (0-33) U/L Alkaline Phosphata se (35-105) IU/L Troponin T Baselin e (0-10) ng/mL C-Reactive Protein (0.0-4.9) mg/L Total Protein (6.6-8.7) g/dL Albumin (3.5-5.2) g/dL Globulin (1.3-4.6) g/dL Procalcitonin (0-0.5) ng/mL HCG, Qual (Negative) Urine Color (Yellow) Urine Appearance (CLEAR) Urine pH (5-7) Ur Specific Gravit y (1.005-1.030) Urine Protein (Negative) Urine Glucose (UA) (Normal) Urine Ketones (Negative) Urine Blood (Negative) Urine Nitrate (Negative) Urine Bilirubin (NEGATIVE) Urine Urobilinogen (Negative) mg/dL Ur Leukocyte Camille ase (Negative) Urine RBC (0-2) /hpf Urine WBC (0-5) /hpf Ur Squamous Epith Cells (0-5) Urine Bacteria (NONE) Urine Mucus Serum Ketones (Negative) Influenza Type A A g (Negative) POC Influenza B Ag (Negative) Discharge Plan Discharge Patient Disposition: Home, Self-Care Clinical Impression: Strain of thoracic back region, Diabetes Condition: Stable Prescriptions: New metformin 750 mg tablet extended release 24 hr 750 mg PO DAILY Qty: 14 RF: 0 diclofenac sodium 75 mg tablet,delayed release (DR/EC) 75 mg PO Q12H PRN (Reason: pain) Qty: 30 RF: 0 No Action ondansetron HCl [Zofran] 4 mg tablet 4 mg PO DAILY Qty: 10 RF: 0 Discharge Orders: Discharge Order (Routine); Ordered 07/04/19 Ordered By: Roberto Carlos Camacho Discharge Diet: Usual diet Discharge Activity: Increase activity as tolerated Activity Restrictions/Additional Instructions: Very important for you to follow-up with the primary care doctor for your diabetes. We have given you metformin to start for now but you may need further medications. Case management will call to get you set up with a primary care provider. Discharge Date/Time: 07/04/19 07:44 Sign Out Sign Out Data: Patient Sign Out occurred on 07/04/19 at 06:40. Patient's care was discussed, and care was transferred from to Roberto Carlos Camacho DO. 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
--- NOTE | 2019-07-04 06:06 | PC.NURSE ---
Patient to XRAY
[2019-07-04 06:12] LABS: Basophils % 0.4 %; Eosinophils # 0.1 10^3/uL (0.0-0.8); Eosinophils % 1.4 %; Hematocrit 43.5 % (37.0-47.0); Hemoglobin 14.3 g/dL (11.5-15.3); Lymphocytes % 19.8 %; Mean Corpuscular HGB Conc 32.9 g/dL (30.0-36.0); Mean Corpuscular Hemoglobin 29.5 pg (28.0-34.0); Mean Corpuscular Volume 89.9 fL (81-99); Mean Platelet Volume 10.3 fL (7.4-10.4); Monocytes # 0.6 10^3/uL (0.2-0.9); Monocytes % 13.1 %; Neutrophils # 3.2 10^3/uL (1.8-7.7); Neutrophils % 65.1 %; Nucleated Red Blood Cells % 0 %; Platelet Count 233 10^3/cmm (130-400); Red Blood Count 4.84 10^6/uL (4.1-5.3); Red Cell Distribution Width 12.6 % (12.1-15.1); White Blood Count 4.9 10^3/uL (4.0-10.0)
[2019-07-04 06:19] LABS: Add Urine Microscopic? YES; Bilirubin Urine Neg (NEGATIVE); Blood Urine Neg (Negative); Glucose Urine UA 4+ (Normal); Ketones Urine Negative (Negative); Leukocyte Esterase Urine Negative (Negative); Nitrate Urine Negative (Negative); Protein Urine Neg (Negative); Urine Appearance SL Hazy (CLEAR); Urine Color Yellow (Yellow); Urobilinogen Urine Norm (Negative); pH Urine 7 (5-7)
[2019-07-04 06:20] LABS: RBC Urine RARE /hpf (0-2)
[2019-07-04 06:21] LABS: Add Urine Culture? No; Bacteria Urine TRACE; Mucus Urine TRACE; Squamous Epithelial Cell Urine 15-25 (0-5)
[2019-07-04 06:25] LABS: D Dimer 0.56 ug/mIFEU (0-0.59); HCG, Serum Qual Negative (Negative)
[2019-07-04 06:26] LABS: Lactate (Lactic Acid level) 1.1 mmol/L (0.5-2.2)
[2019-07-04 06:28] LABS: Troponin(5th) Baseline 6 ng/mL (0-10)
[2019-07-04 06:28] LABS: Influenza A by IFA Negative (Negative); Influenza B by IFA Negative (Negative)
[2019-07-04 06:30] VITALS: PULSE 91; RESP 18; O2SAT 97
--- NOTE | 2019-07-04 06:33 | PC.NURSE ---
RT in room
[2019-07-04 06:35] LABS: Procalcitonin 0.09 ng/mL (0-0.5)
[2019-07-04] MEDS: ipratropium-albuterol 3 mL Neb INHALATION (06:35)
[2019-07-04 06:36] VITALS: PULSE 86; O2SAT 98
[2019-07-04 06:46] LABS: Alanine Aminotransferase 26 U/L (0-33); Alkaline Phosphatase 96 IU/L (35-105); Anion Gap 12.4 (5-19); Aspartate Amino Transferase 19 U/L (0-32); Blood Urea Nitrogen 10 mg/dL (6-20); C Reactive Protein 7.9 mg/L (0.0-4.9); Calcium 9.2 mg/dL (8.5-10.5); Carbon Dioxide 27 mmol/L (22-29); Chloride 102 mmol/L (98-107); Glucose 276 mg/dL (65-115); Osmolality Calculated 290 mOsm/kg (285-295); Potassium 4.4 mmol/L (3.5-5.1); Sodium 137 mmol/L (136-145); Total Bilirubin 0.2 mg/dL (0.15-1.2)
[2019-07-04 06:53] LABS: Ketone (Acetest) Serum Negative (Negative)
[2019-07-04 07:26] LABS: Glucose Point of Care 241 mg/dL (70-110)
[2019-07-04 07:28] LABS: ABG PCO2 33.2 mmHg (35-45); ABG PH Result 7.46 (7.35-7.45); Base Excess ABG 0.5 mmol/L (-2.0-2.0); Blood Gas Allen Test Pos; Blood Gas Sample Site Brachial, left; Blood Gas Sample Type Arterial; Carboxyhemoglobin 0.8 %THgb (0.4-20.1); HCO3 ABG 23.7 mmol/L (22-26); Ionized Calcium Level - ABG 1.2 mmol/L (1.1-1.4); Methemoglobin 0.7 % (0.4-1.5); Oxygen Device ROOM AIR; Oxygen Saturation ABG 98.6; PO2 ABG 92.3 mmHg (80.0-100.0); Potassium Level - ABG 4.3 mmol/L (3.5-5.0); Total Hemoglobin 14.3 g/dL (12-16)
--- NOTE | 2019-07-04 07:30 | ECG_ITS ---
Measurements Intervals [place] Rate: 94 P: 14 RI: 153 QRS: 3 QRSD: 96 T: 2 QT: 343 QTc: 431 SINUS RHYTHM POSSIBLE ANTERIOR MYOCARDIAL INFARCTION [30 ms Q WAVE IN V3/V4, OR R < 0.2 mV IN V4], OF INDETERMINATE AGE Compared to ECG 03/19/2019 06:21:04 Myocardial infarct finding now present Sinus arrhythmia no longer present Electronically Signed On 07-04-2019 13:44:32 CDT by Cortez Marr M.D. [email or web address]
[2019-07-04 07:44] VITALS: BP 122/81; PULSE 80; O2SAT 96
--- NOTE | 2019-07-06 13:29 | DCPLANNER ---
manager loan had message to speak with patient about getting a primary care physician. manager loan called patient at [phone], phone number is no longer in service.
== END 2019-07-04 07:44 | disposition home or self-care (01) ==
PROVIDERS: Emergency Medicine; Emergency Provider Family Medicine
DX: S29.019A Strain of muscle and tendon of unspecified wall of thorax, initial encounter (principal); F17.210 Nicotine dependence, cigarettes, uncomplicated; R00.0 Tachycardia, unspecified; X58.XXXA Exposure to other specified factors, initial encounter
CPT/HCPCS: 12345; 36415; 36416; 36600; 71046; 80051; 80053; 81001; 82009; 82810; 82962; 83605; 83986; 84145; 84484; 84703; 85025; 85378; 86140; 87040; 87804; 93005; 94640; 99283; 99284; A9270

== ENCOUNTER 2019-12-02 11:19 | Emergency (ER) | payer SELFPAY ==
[2019-12-02 11:27] VITALS: BMI 49.9
[2019-12-02 11:29] VITALS: BP 157/79; PULSE 80; RESP 16; TEMP 36.6; O2SAT 98
--- NOTE | 2019-12-02 11:37 | US_ITS ---
WS: [id number] ULTRASOUND PELVIS TECHNIQUE: Transabdominal and transvaginal. ULTRASOUND PELVIS TECHNIQUE: Transabdominal. CLINICAL INFORMATION: abnormal vaginal bleeding : No. COMPARISON: Ultrasound and CT May 01, 2019 FINDINGS: Uterus Orientation: Anteverted. Size: 8.26,7.20 cm x 5.6 cm x 4.1 cm. Masses: None. Cervix: Incidental nabothian cysts. Endometrium: Thickened with blood products Endometrium thickness: 1.6 cm. Adnexa: Large left ovarian cyst with multiple satellite daughter cyst. Left ovarian cyst measures 4.2 x 3.0 x 3.1 cm. This is present in 2014 on the prior ultrasound and has increased in size slightly. Right ovary size: Not well visualized. Left ovary size: 5.4 cm x 4.5 cm x 3.9 cm. Left ovary volume: 48.8 ccm3 Free fluid: Small amount of fluid. Other findings: None. US/US pelvic with transvaginal IMPRESSION: 1. Thickened endometrium with hemorrhagic blood products in the endometrial ca nal. 2. Large left ovarian cyst was present in 2014 and is similar in appearance me asuring a few millimeters larger today. 3. Right ovary is not well visualized. 4. Small amount of free fluid in the cul-de-sac.
--- NOTE | 2019-12-02 11:42 | ED_ITS ---
HPI - Female Genitourinary General: Chief complaint: Urogenital-Female Stated complaint: adnormal bleeding Time Seen by Provider: 12/02/19 11:26 Source: patient and family (boyfriend) Mode of arrival: ambulatory Limitations: no limitations History of Present Illness: HPI Narrative: Patient has been having vaginal bleeding for 3 weeks with passage of what she describes as large clots. She denies any pain, denies any cramping, denies any discharge. She denies dizziness, lightheadedness or palpitations. MD elicited complaint: vaginal bleeding Onset (ago): week(s) (3) Location of symptoms: vaginal Severity: moderate Consistency: progressively worsening Vaginal discharge: none Vaginal bleeding: heavy Associated symptoms: Reports no associated symptoms; Deny abdominal pain, headache(s) or nausea Treatment prior to arrival: none Sexual activity: Yes Patient : No Possible : unsure if Date of Last Menstrual Period: 11/11/19 Review of Systems General: Reports: 10 or more systems reviewed and unremarkable except in HPI and below Const: Denies: fever(s), chills or body aches Eyes: Denies: change in vision or blurry vision ENMT: Denies: throat pain, enlarged tonsils, odynophagia, hoarseness, mouth pain or swelling of lips/tongue Card: Denies: palpitations, irregular heart rhythm, edema or swelling of feet/ankles Resp: Denies: dyspnea, productive cough or non-productive cough GI: Denies: abdominal pain, nausea or vomiting : Reports: vaginal bleeding; Denies: flank pain, difficulty voiding, dysuria, urinary frequency, urinary urgency or urinary hesitancy Musc: Denies: neck pain, back pain or extremity swelling Skin/Breast: Denies: rash, pruritus or erythema Neuro: Denies: headache(s), numbness in extremities or weakness in extremities Endo: Denies: polyuria, polydipsia or tired all the time PFSH ED PFSH: Social History (Reviewed 12/02/19 @ 11:48 by Leyla Guardado MD, [facility] [place]) Smoking and tobacco status: current every day smoker Female Reproductive History: Date of last menstrual period: 11/11/19 Physical Exam Const: COMMON NORMALS: no acute distress, patient oriented x3, no limitations, alert and well nourished NUTRITIONAL APPEARANCE: obese HENMT: COMMON NORMALS: normocephalic, atraumatic and moist oral mucous membranes HEAD & SCALP: normocephalic and atraumatic Neck/C-Spine: COMMON NORMALS: no meningeal signs and no JVD Resp: COMMON NORMALS: normal respiratory effort, No retractions, No use of accessory muscles, clear to auscultation bilaterally and percussion normal AUSCULTATION: clear to auscultation bilaterally PERCUSSION: percussion normal Cardio: COMMON NORMALS: no JVD, regular rate, regular rhythm, S1 normal heart sound present, S2 normal heart sound present, No gallops present (Cardio), No clicks present (Cardio), No murmurs present (Cardio), No rub (Cardio) and Peripheral pulses 2+ throughout RATE: regular rate RHYTHM: regular rhythm HEART SOUNDS: S1 normal heart sound present and S2 normal heart sound present PERIPHERAL PULSES: Peripheral pulses 2+ throughout GI: COMMON NORMALS: Normal to inspection, nondistended, normoactive bowel sounds present, Soft to palpation, non-tender, No hepatosplenomegaly present, no masses and no bruits PALPATION: Yes Soft to palpation and Yes No hepatosplenomegaly present Extremity: COMMON NORMALS: normal to inspection, full ROM, capillary refill normal, no calf tenderness and no pedal edema Neuro: COMMON NORMALS: patient oriented x3 SENSORIUM/ORIENTATION: Yes alert MENINGEAL SIGNS: Yes no meningeal signs Course Reevaluation(s): Reevaluation #1: Discussed the results of her lab and imaging findings with her. Hemoglobin normal, white cell count normal. Chemistries unremarkable. Ultrasound shows blood in the uterus and a thickened endometrium but no other acute findings. She has a left ovarian cyst. The patient states that she has had ovarian cysts since she was 11 so this is not new. We discussed treatment options with her and advised that the #1 therapy is usually oral contraceptive pills and she voiced understanding and was in agre ement with the plan. She will follow-up with her primary care provider. Time: 13:45 Vital Signs: Vital signs: Vital Signs Temperature 998.7 F H 12/02/19 14:20 Pulse Rate 84 12/02/19 14:20 Respiratory Rate 18 12/02/19 14:20 Blood Pressure 145/92 12/02/19 14:20 Pulse Oximetry 98 12/02/19 14:20 MDM - Female MDM Narrative: Medical decision making narrative: 29-year-old female patient with vaginal bleeding that is consistent with menorrhagia. Evaluation in the ED was unremarkable with normal vital signs, normal hemoglobin, pelvic ultrasound just shows thickened endometrium and blood products in the uterus. She is discharged home with a prescription for oral contraceptives and to follow-up with her primary care provider Medical Records: Attestation: I reviewed the patient's medical records. Lab Data: Attestation: I reviewed the patient's lab results. Labs: Lab Results 12/02/19 12/02/19 12/02/19 Range/Units 11:45 11:45 12:02 WBC 6.5 (4.0-10.0) 10^3/ uL RBC 4.57 (4.1-5.3) 10^6/u L Hgb 13.2 (11.5-15.3) g/dL Hct 41.1 (37.0-47.0) % MCV 89.9 (81-99) fL MCH 28.9 (28.0-34.0) pg MCHC 32.1 (30.0-36.0) g/dL RDW 12.4 (12.1-15.1) % Plt Count 282 (130-400) 10^3/c mm MPV 9.9 (7.4-10.4) fL Neut % (Auto) 57.5 % Lymph % (Auto) 32.2 % Cavalier % (Auto) 6.2 % Eos % (Auto) 3.3 % Baso % (Auto) 0.5 % Neut # (Auto) 3.71 (1.8-7.7) 10^3/u L Lymph # (Auto) 2.1 (0.8-4.8) 10^3/u L Cavalier # (Auto) 0.4 (0.2-0.9) 10^3/u L Eos # (Auto) 0.2 (0.0-0.8) 10^3/u L Baso # (Auto) 0.0 (0.0-0.1) 10^3/u L Nucleated RBC % (a uto) 0 % Nucleated RBCs # 0.0 /100WBC Sodium 133 L (136-145) mmol/L Potassium 4.2 (3.5-5.1) mmol/L Chloride 101 (98-107) mmol/L Carbon Dioxide 25 (22-29) mmol/L Anion Gap 11.2 (5-19) BUN 11 (6-20) mg/dL Creatinine 0.5 (0.5-0.9) mg/dL GFR Calculation 148.0 H (90-130) mL/min Glucose 291 H (65-115) mg/dL Calculated Osmolal ity 283 L (285-295) mOsm/k g Calcium 9.0 (8.5-10.5) mg/dL Total Bilirubin 0.3 (0.15-1.2) mg/dL AST 13 (0-32) U/L ALT 20 (0-33) U/L Alkaline Phosphata se 92 (35-105) IU/L Total Protein 6.3 L (6.6-8.7) g/dL Albumin 3.9 (3.5-5.2) g/dL Globulin 2.4 (1.3-4.6) g/dL HCG, Qual Negative (Negative) Urine Color (Yellow) Urine Appearance (CLEAR) Urine pH (5-7) Ur Specific Gravit y (1.005-1.030) Urine Protein (Negative) Urine Glucose (UA) (Normal) Urine Ketones (Negative) Urine Blood (Negative) Urine Nitrate (Negative) Urine Bilirubin (NEGATIVE) Urine Urobilinogen (Negative) mg/dL Ur Leukocyte Camille ase (Negative) Urine RBC (0-2) /hpf Urine WBC (0-5) /hpf Ur Squamous Epith Cells (0-5) Amorphous Sediment Urine Bacteria (NONE) 12/02/19 Range/Units 12:02 WBC (4.0-10.0) 10^3/ uL RBC (4.1-5.3) 10^6/u L Hgb (11.5-15.3) g/dL Hct (37.0-47.0) % MCV (81-99) fL MCH (28.0-34.0) pg MCHC (30.0-36.0) g/dL RDW (12.1-15.1) % Plt Count (130-400) 10^3/c mm MPV (7.4-10.4) fL Neut % (Auto) % Lymph % (Auto) % Cavalier % (Auto) % Eos % (Auto) % Baso % (Auto) % Neut # (Auto) (1.8-7.7) 10^3/u L Lymph # (Auto) (0.8-4.8) 10^3/u L Cavalier # (Auto) (0.2-0.9) 10^3/u L Eos # (Auto) (0.0-0.8) 10^3/u L Baso # (Auto) (0.0-0.1) 10^3/u L Nucleated RBC % (a uto) % Nucleated RBCs # /100WBC Sodium (136-145) mmol/L Potassium (3.5-5.1) mmol/L Chloride (98-107) mmol/L Carbon Dioxide (22-29) mmol/L Anion Gap (5-19) BUN (6-20) mg/dL Creatinine (0.5-0.9) mg/dL GFR Calculation (90-130) mL/min Glucose (65-115) mg/dL Calculated Osmolal ity (285-295) mOsm/k g Calcium (8.5-10.5) mg/dL Total Bilirubin (0.15-1.2) mg/dL AST (0-32) U/L ALT (0-33) U/L Alkaline Phosphata se (35-105) IU/L Total Protein (6.6-8.7) g/dL Albumin (3.5-5.2) g/dL Globulin (1.3-4.6) g/dL HCG, Qual (Negative) Urine Color Yellow (Yellow) Urine Appearance Cloudy (CLEAR) Urine pH 5 (5-7) Ur Specific Gravit y 1.020 (1.005-1.030) Urine Protein Neg (Negative) Urine Glucose (UA) 4+ H (Normal) Urine Ketones Negative (Negative) Urine Blood 3+ H (Negative) Urine Nitrate Negative (Negative) Urine Bilirubin Neg (NEGATIVE) Urine Urobilinogen Norm (Negative) mg/dL Ur Leukocyte Camille ase Negative (Negative) Urine RBC Too numerous to c nt H (0-2) /hpf Urine WBC None (0-5) /hpf Ur Squamous Epith Cells 0-4 H (0-5) Amorphous Sediment Not Reportable Urine Bacteria 1+ H (NONE) Imaging Data: US: Radiologist's impression: [address] [place] [address] Ultrasound Report Signed Patient: Marina Rausch #: [id number] : 1990Acct#:[id number] Age/Sex: 29 / FADM Date: 12/02/19 Loc: ERRoom/Bed: Attending Dr: Ordering Provider/Ordering MD: Leyla Guardado MD, [facility] [place] Date of Service: 12/02/19 Procedure(s): US pelvic with transvaginal Accession Number(s): [id number] Report Number: [id number] WS: [id number] ULTRASOUND PELVIS TECHNIQUE: Transabdominal and transvaginal. ULTRASOUND PELVIS TECHNIQUE: Transabdominal. CLINICAL INFORMATION: abnormal vaginal bleeding : No. COMPARISON: Ultrasound and CT May 01, 2019 FINDINGS: Uterus Orientation: Anteverted. Size: 8.26,7.20 cm x 5.6 cm x 4.1 cm. Masses: None. Cervix: Incidental nabothian cysts. Endometrium: Thickened with blood products Endometrium thickness: 1.6 cm. Adnexa: Large left ovarian cyst with multiple satellite daughter cyst. Left ovarian cyst measures 4.2 x 3.0 x 3.1 cm. This is present in 2014 on the prior ultrasound and has increased in size slightly. Right ovary size: Not well visualized. Left ovary size: 5.4 cm x 4.5 cm x 3.9 cm. Left ovary volume: 48.8 ccm3 Free fluid: Small amount of fluid. Other findings: None. US/US pelvic with transvaginal IMPRESSION: 1. Thickened endometrium with hemorrhagic blood products in the endometrial canal. 2. Large left ovarian cyst was present in 2014 and is similar in appearance measuring a few millimeters larger today. 3. Right ovary is not well visualized. 4. Small amount of free fluid in the cul-de-sac. Dictated By:Jesus Barth MD Signed By:Jesus Barth MDSigned Date/Time:12/02/19 1325 DD/ 1319 Discharge Plan Discharge Patient Disposition: Home Clinical Impression: Menorrhagia Qualifiers: Menorrhagia type: with regular cycle Qualified Code(s): N92.0 - Excessive and frequent menstruation with regular cycle Condition: Stable Prescriptions: New Sprintec (28) 0.25-35 mg-mcg tablet 1 tab PO DAILY Qty: 28 RF: 0 Continued ibuprofen 200 mg Tablet 400 mg PO PRN RF: 0 fluoxetine 20 mg capsule 20 mg PO DAILY RF: 0 Discharge Orders: Discharge Order (Routine); Ordered 12/02/19 Ordered By: Leyla Guardado Discharge Diet: Usual diet Discharge Activity: Resume usual activity Patient Instructions: Menorrhagia (ED) Activity Restrictions/Additional Instructions: Return for any new or worsening symptoms. Follow-up with your primary care provider within 1 week for reevaluation. And plenty of fluids to keep well-hydrated. 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
[2019-12-02 11:53] LABS: Basophils % 0.5 %; Eosinophils # 0.2 10^3/uL (0.0-0.8); Eosinophils % 3.3 %; Hematocrit 41.1 % (37.0-47.0); Hemoglobin 13.2 g/dL (11.5-15.3); Lymphocytes # 2.1 10^3/uL (0.8-4.8); Lymphocytes % 32.2 %; Mean Corpuscular HGB Conc 32.1 g/dL (30.0-36.0); Mean Corpuscular Hemoglobin 28.9 pg (28.0-34.0); Mean Corpuscular Volume 89.9 fL (81-99); Mean Platelet Volume 9.9 fL (7.4-10.4); Monocytes # 0.4 10^3/uL (0.2-0.9); Monocytes % 6.2 %; Neutrophils # 3.71 10^3/uL (1.8-7.7); Neutrophils % 57.5 %; Nucleated Red Blood Cells % 0 %; Platelet Count 282 10^3/cmm (130-400); Red Blood Count 4.57 10^6/uL (4.1-5.3); Red Cell Distribution Width 12.4 % (12.1-15.1); White Blood Count 6.5 10^3/uL (4.0-10.0)
[2019-12-02 12:19] LABS: Bilirubin Urine Neg (NEGATIVE); Blood Urine 3+ (Negative); Glucose Urine UA 4+ (Normal); Ketones Urine Negative (Negative); Leukocyte Esterase Urine Negative (Negative); Nitrate Urine Negative (Negative); Protein Urine Neg (Negative); Urine Appearance Cloudy (CLEAR); Urine Color Yellow (Yellow); Urobilinogen Urine Norm (Negative); pH Urine 5 (5-7)
[2019-12-02 12:20] LABS: Add Urine Microscopic? YES; HCG Qualitative Urine. Negative (Negative)
[2019-12-02 12:36] LABS: Add Urine Culture? Yes; Bacteria Urine 1+; RBC Urine TOO NUMEROUS TO CNT /hpf (0-2); Squamous Epithelial Cell Urine 0-4 (0-5)
[2019-12-02 12:44] LABS: Alanine Aminotransferase 20 U/L (0-33); Albumin Level 3.9 g/dL (3.5-5.2); Alkaline Phosphatase 92 IU/L (35-105); Anion Gap 11.2 (5-19); Aspartate Amino Transferase 13 U/L (0-32); Blood Urea Nitrogen 11 mg/dL (6-20); Carbon Dioxide 25 mmol/L (22-29); Chloride 101 mmol/L (98-107); Globulin 2.4 g/dL (1.3-4.6); Glucose 291 mg/dL (65-115); Osmolality Calculated 283 mOsm/kg (285-295); Potassium 4.2 mmol/L (3.5-5.1); Sodium 133 mmol/L (136-145); Total Bilirubin 0.3 mg/dL (0.15-1.2); Total Protein 6.3 g/dL (6.6-8.7)
[2019-12-02 13:39] VITALS: BP 145/92; PULSE 80; RESP 18; O2SAT 97
[2019-12-02 14:20] VITALS: BP 145/92; PULSE 84; RESP 18; TEMP 537.1; TEMP 998.7; O2SAT 98
== END 2019-12-02 14:24 | disposition home or self-care (01) ==
PROVIDERS: Emergency Provider Family Medicine
DX: N92.0 Excessive and frequent menstruation with regular cycle (principal); F17.210 Nicotine dependence, cigarettes, uncomplicated
CPT/HCPCS: 12345; 76830; 76856; 80053; 81001; 81025; 85025; 87086; 99283

== ENCOUNTER 2020-04-04 00:16 | Emergency (ER) | payer SELFPAY ==
[2020-04-04 00:21] VITALS: BP 155/93; PULSE 87; RESP 18; TEMP 35.6; O2SAT 96; BMI 49.9
--- NOTE | 2020-04-04 00:32 | ED_ITS ---
HPI - Extremity Problem General: Chief complaint: Extremity Injury, Lower Stated complaint: knot/burning in right leg Time Seen by Provider: 04/04/20 00:32 History of Present Illness: HPI Narrative: Patient is a 30-year-old female comes to the ED with swelling and the right lower extremity. She noticed swelling in the right leg around the upper calf region approximately 1 month ago. Denies any trauma or injury to cause swelling. She says it slightly tend er but it did not start hurting more chill past couple days. Denies any history of DVTs. Denies shortness of breath, chest pain or hemoptysis. Associated symptoms: Deny chest pain, fever(s) or rash Review of Systems Const: Denies: fever(s), chills or fatigue Eyes: Denies: change in vision or eye discomfort ENMT: Denies: throat pain, odynophagia, nasal discharge or nasal congestion Card: Denies: chest pain, palpitations, edema, swelling of feet/ankles, dyspnea on exertion or orthopnea Resp: Denies: dyspnea, productive cough or non-productive cough GI: Denies: abdominal pain, nausea, vomiting, diarrhea, constipation or hematochezia : Denies: flank pain, dysuria or hematuria Musc: Reports: extremity pain (right lower leg) and extremity swelling (right lower leg); Denies: neck pain or back pain Skin/Breast: Denies: rash or new lesions Neuro: Denies: headache(s), numbness in extremities or weakness in extremities PFS ED PFSH: Social History Smoking and tobacco status: current every day smoker Female Reproductive History: Date of last menstrual period: 03/27/20 Physical Exam Narrative: EXAM NARRATIVE: Patient appears in no acute distress or pain when I enter the room. She was standing and walking on leg during history and physical exam. Const: COMMON NORMALS: no acute distress, patient oriented x3 and alert GENERAL APPEARANCE: cooperative and comfortable NUTRITIONAL APPEARANCE: obese HENMT: COMMON NORMALS: normocephalic HEAD & SCALP: normocephalic MOUTH: Normal oral and palatal mucosa present THROAT: posterior oropharynx normal and uvula midline Neck/C-Spine: COMMON NORMALS: supple GENERAL: Yes normal visual inspection Resp: COMMON NORMALS: normal respiratory effort, No retractions, No use of accessory muscles and clear to auscultation bilaterally AUSCULTATION: clear to auscultation bilaterally Cardio: COMMON NORMALS: regular rate, regular rhythm, S1 normal heart sound present, S2 normal heart sound present, No gallops present (Cardio), No clicks present (Cardio), No murmurs present (Cardio) and Peripheral pulses 2+ throughout RATE: regular rate RHYTHM: regular rhythm HEART SOUNDS: S1 normal heart sound present and S2 normal heart sound present PERIPHERAL PULSES: Peripheral pulses 2+ throughout GI: COMMON NORMALS: Normal to inspection, nondistended, normoactive bowel s ounds present, Soft to palpation, non-tender and no masses PALPATION: Yes Soft to palpation : COMMON NORMALS: Yes no CVA tenderness BLADDER/KIDNEY EXAM: Yes no CVA tenderness Back/Pelvis: COMMON NORMALS: no CVA tenderness Extremity: COMMON NORMALS: normal to inspection, no calf tenderness and no pedal edema RIGHT LOWER EXTREMITY: Yes lower leg Right lower leg: Yes inspection (No visible deformity, ecchymosis or erythema seen.), Yes palpation (Tenderness to palpation over anterior tib-fib just below knee.) and Yes neurovascular exam (intact) Neuro: COMMON NORMALS: patient oriented x3 and moves all extremities SENSORIUM/ORIENTATION: Yes alert Skin: GENERAL SKIN EXAM: dry skin Course Vital Signs: Vital signs: Vital Signs Temperature 96.0 F L 04/04/20 00:21 Pulse Rate 85 04/04/20 01:34 Respiratory Rate 18 04/04/20 01:34 Blood Pressure 152/92 04/04/20 01:34 Pulse Oximetry 97 04/04/20 01:34 MDM - Extremity (Nontraumatic) MDM Narrative: Medical decision making narrative: Patient is a 30-year-old female comes to the ED with right lower leg swelling and pain that is nontraumatic. Patient says the swelling started approximately 1 month ago. Patient is able to ambulate around the room. Patient has some mild tenderness in the anterior aspect of the tib-fib just below the knee. The neurovascular tact distally. Ultrasound venous duplex of right lower extremity showed no DVTs or blood clots seen. Area where patient was complained of swelling did not show any cyst or fluid collection. Patient discharged with right leg pain and swelling and told to rest ice and elevate leg to help with symptoms. Take [id number] ibuprofen or Tylenol for pain. Return to ED precautions given. Follow-up with PCP in 7 to 10 days. Patient understood and agreed with plan. Imaging Data^: US Vascular: Attestation: I personally reviewed and interpreted this imaging study as follows: Radiologist's impression: Ultrasound venous duplex of right lower extremity?prelim report no DVTs or blood clots seen. Area were swelling as the re was no cyst or fluid collection seen. Discharge Plan Discharge Patient Disposition: Home Clinical Impression: Right leg pain, Right leg swelling Condition: Stable Prescriptions: No Action ibuprofen 200 mg Tablet 400 mg PO PRN RF: 0 fluoxetine 20 mg capsule 20 mg PO DAILY RF: 0 Sprintec (28) 0.25-35 mg-mcg tablet 1 tab PO DAILY Qty: 28 RF: 0 Discharge Orders: Discharge ED (Routine); Ordered 04/04/20 Ordered By: Nicholas Dhillon Discharge Diet: Regular Discharge Activity: Increase activity as tolerated Activity Restrictions/Additional Instructions: Follow-up with medical provider as directed. Take [id number] ibuprofen or Tylenol for pain. return to the ER or your medical provider if condition worsens. Please read and understand discharge instructions. If any questions, please ask. 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
--- NOTE | 2020-04-04 00:36 | USCV_ITS ---
Marina Rausch Age: 30 Gender: F : 1990 Exam Date: 04/04/2020 01:05 Ordering Phys: Nicholas Dhillon Technologist: Alok Noonan [place] [facility] [place]ication: RT LEG PAIN AND EDEMA HISTORY: Lower extremity edema. PROCEDURES: Venous duplex imaging was performed in only the right lower extremity. The following venous structures were evaluated: common femoral vein, profunda vein, proximal portion of the greater saphenous vein, superficial femoral vein, and the popliteal vein. In addition, the posterior tibial and peroneal trunk were evaluated. On the right side, the common femoral, superficial femoral, profunda femoral, popliteal, posterior tibial, greater saphenous veins and the peroneal trunk were identified and interrogated in the standard fashion. These veins were found to be easily compressible with spontaneous blood flow. No evidence of insufficiency or thrombus noted. FINDINGS: Normal 2-D Doppler and augmentation and compressibility throughout the lower extremity venous structures. Additional imaging through the proximal calf veins also reveals no thrombus. Limited evaluation of the greater saphenous vein is patent with no thrombus.. CONCLUSIONS No evidence of right lower extremity DVT. Jesus Barth MD (Electronically Signed) Final Date: 04 April 2020 09:23 S
[2020-04-04 01:34] VITALS: BP 152/92; PULSE 85; RESP 18; O2SAT 97
== END 2020-04-04 01:34 | disposition home or self-care (01) ==
PROVIDERS: Emergency Provider Physician Assistant
DX: M79.604 Pain in right leg (principal); M79.89 Other specified soft tissue disorders; F17.210 Nicotine dependence, cigarettes, uncomplicated
CPT/HCPCS: 12345; 93971; 99281; 99282

== ENCOUNTER 2020-06-19 22:57 | Emergency (ER) | payer SELFPAY ==
[2020-06-19 23:07] VITALS: BP 137/82; PULSE 84; RESP 16; TEMP 36.3; O2SAT 97; BMI 57.6
--- NOTE | 2020-06-19 23:29 | W.ED.CHESTPA ---
HPI - Chest Pain General: Chief Complaint: Chest Pain Stated Complaint: CP Time Seen by Provider: 06/19/20 23:18 Source: patient Mode of arrival: ambulatory Limitations: no limitations History of Present Illness: HPI narrative: Patient is a 30-year-old female who presents to ED today for evaluation of chest pain. Patient tells me her chest pain began yesterday while at rest and was intermittent throughout the day. She states pain was located substernally and radiated into her left arm. She states pain seemed to be worse with movement and deep inhalation. She tells me today pain has seemed more constant in nature. Patient has not had a cough or fevers. Denies feeling short of breath. She denies any previous cardiac or pulmonary history. MD complaint: chest pain Onset (ago): day(s) (yesterday) Timing of current episode: episodic (yesterday) and constant (today) Prior episodes: Yes (once when she pulled a muscle ) Onset: during rest Pain location: substernal Pain radiation: left arm Quality: fullness Relieving factors: nothing Exacerbating factors: inspiration and movement Associated symptoms: Reports nausea and other (dizziness); Deny abdominal pain, dyspnea, fever(s), palpitations, syncope or vomiting Related Data: On Oral Contraceptives: Yes Review of Systems Const: Denies: fever(s), chills, body aches, fatigue or malaise Eyes: Denies: change in vision, blurry vision, photophobia, floaters or seeing flashes ENMT: Denies: odynophagia Card: Reports: chest pain; Denies: palpitations, irregular heart rhythm, edema, swelling of feet/ankles, syncope, pre-syncope, dyspnea on exertion, orthopnea or leg pain with exertion Resp: Reports: pain on inspiration; Denies: dyspnea, productive cough, non-productive cough, hemoptysis or chest congestion GI: Reports: nausea; Denies: abdominal pain, vomiting, diarrhea or change in stool character : Denies: dysuria Musc: Denies: neck pain, back pain or joint pain Skin/Breast: Denies: rash Neuro: Reports: dizziness; Denies: headache(s), numbness in extremities, weakness in extremities or sensory changes PFS ED PFSH: Social History Smoking and tobacco status: current every day smoker Female Reproductive History: Date of last menstrual period: 03/27/20 Physical Exam Const: COMMON NORMALS: no acute distress, patient oriented x3, no limitations and alert GENERAL APPEARANCE: cooperative NUTRITIONAL APPEARANCE: obese ORIENTATION/CONSCIOUSNESS: Yes awake, Yes oriented to person, Yes oriented to place and Yes oriented to time HENMT: COMMON NORMALS: normocephalic and atraumatic HEAD & SCALP: normocephalic and atraumatic Chest: COMMONS NORMALS: normal inspection of the chest OTHER: TTP over sternum Resp: COMMON NORMALS: normal respiratory effort and clear to auscultation bilaterally AUSCULTATION: clear to auscultation bilaterally Cardio: COMMON NORMALS: regular rate and regular rhythm RATE: regular rate RHYTHM: regular rhythm GI: COMMON NORMALS: Normal to inspection, nondistended, normoactive bowel sounds present, Soft to palpation, non-tender, No hepatosplenomegaly present and no masses PALPATION: Yes Soft to palpation and Yes No hepatosplenomegaly present Neuro: FARA COMA SCALE: document GCS findings [place] coma scale eye opening: Spontaneous [place] coma scale verbal response: Orientated [place] coma scale motor response: Obey commands [place] coma scale total score: 15 COMMON NORMALS: patient oriented x3, CN's II-XII intact bilaterally, moves all extremities, no focal motor deficits and no sensory deficits noted SENSORIUM/ORIENTATION: Yes alert, Yes oriented to person, Yes oriented to place and Yes oriented to time Skin: COMMON NORMALS: no rashes or lesions noted GENERAL SKIN EXAM: no rashes or lesions noted Course Vital Signs: Vital signs: Vital Signs Temperature 97.3 F L 06/19/20 23:07 Pulse Rate 89 06/20/20 00:55 Respiratory Rate 14 06/20/20 00:55 Blood Pressure 131/93 06/20/20 00:55 Pulse Oximetry 99 06/20/20 00:55 MDM - Chest Pain MDM Narrative: Medical decision making narrative: Patient's lab work is unremarkable. Her CXR is normal. EKG without ischemic changes. Pain seems to be reproducible on exam. Patient will be discharged home with return to ED precautions. Otherwise she may follow-up with primary care if pain persists. Lab Data: Labs: Lab Results 06/20/20 06/20/20 06/20/20 Range/Units 00:03 00:03 00:03 WBC 7.4 (4.0-10.0) 10^3/ uL RBC 4.77 (4.1-5.3) 10^6/u L Hgb 13.8 (11.5-15.3) g/dL Hct 42.6 (37.0-47.0) % MCV 89.3 (81-99) fL MCH 28.9 (28.0-34.0) pg MCHC 32.4 (30.0-36.0) g/dL RDW 12.6 (12.1-15.1) % Plt Count 314 (130-400) 10^3/c mm MPV 10.0 (7.4-10.4) fL Neut % (Auto) 53.4 % Lymph % (Auto) 34.7 % [place] % (Auto) 8.1 % Eos % (Auto) 3.0 % Baso % (Auto) 0.5 % Neut # (Auto) 3.96 (1.8-7.7) 10^3/u L Lymph # (Auto) 2.6 (0.8-4.8) 10^3/u L [place] # (Auto) 0.6 (0.2-0.9) 10^3/u L Eos # (Auto) 0.2 (0.0-0.8) 10^3/u L Baso # (Auto) 0.0 (0.0-0.1) 10^3/u L Nucleated RBC % (a uto) 0 % Nucleated RBCs # 0.0 /100WBC Sodium 133 L (136-145) mmol/L Potassium 4.5 (3.5-5.1) mmol/L Chloride 99 (98-107) mmol/L Carbon Dioxide 23 (22-29) mmol/L Anion Gap 15.5 (5-19) BUN 13 (6-20) mg/dL Creatinine 0.5 (0.5-0.9) mg/dL GFR Calculation 146.9 H (90-130) mL/min Glucose 283 H (65-115) mg/dL Calculated Osmolal ity 286 (285-295) mOsm/k g Calcium 8.9 (8.5-10.5) mg/dL Total Bilirubin 0.2 (0.15-1.2) mg/dL AST 14 (0-32) U/L ALT 29 (0-33) U/L Alkaline Phosphata se 84 (35-105) IU/L Troponin T Baselin e 6 (0-10) ng/L Total Protein 6.3 L (6.6-8.7) g/dL Albumin 3.9 (3.5-5.2) g/dL Globulin 2.4 (1.3-4.6) g/dL HCG, Qual (Negative) 06/20/20 Range/Units 00:03 WBC (4.0-10.0) 10^3/ uL RBC (4.1-5.3) 10^6/u L Hgb (11.5-15.3) g/dL Hct (37.0-47.0) % MCV (81-99) fL MCH (28.0-34.0) pg MCHC (30.0-36.0) g/dL RDW (12.1-15.1) % Plt Count (130-400) 10^3/c mm MPV (7.4-10.4) fL Neut % (Auto) % Lymph % (Auto) % [place] % (Auto) % Eos % (Auto) % Baso % (Auto) % Neut # (Auto) (1.8-7.7) 10^3/u L Lymph # (Auto) (0.8-4.8) 10^3/u L [place] # (Auto) (0.2-0.9) 10^3/u L Eos # (Auto) (0.0-0.8) 10^3/u L Baso # (Auto) (0.0-0.1) 10^3/u L Nucleated RBC % (a uto) % Nucleated RBCs # /100WBC Sodium (136-145) mmol/L Potassium (3.5-5.1) mmol/L Chloride (98-107) mmol/L Carbon Dioxide (22-29) mmol/L Anion Gap (5-19) BUN (6-20) mg/dL Creatinine (0.5-0.9) mg/dL GFR Calculation (90-130) mL/min Glucose (65-115) mg/dL Calculated Osmolal ity (285-295) mOsm/k g Calcium (8.5-10.5) mg/dL Total Bilirubin (0.15-1.2) mg/dL AST (0-32) U/L ALT (0-33) U/L Alkaline Phosphata se (35-105) IU/L Troponin T Baselin e (0-10) ng/L Total Protein (6.6-8.7) g/dL Albumin (3.5-5.2) g/dL Globulin (1.3-4.6) g/dL HCG, Qual Negative (Negative) Imaging Data^: CXR: Radiologist's impression: [employer] [address] XRay Report Signed Patient: Marina Rausch Unit #: [id number] : 1990 Age/Sex: 30 / F ADM Date: 06/19/20 Loc: ER Room/Bed: Attending Dr: Ordering Provider/Ordering MD: Lyly Rosenthal Date of Service: 06/19/20 Procedure(s): XR chest 1V portable [id number] Accession Number(s): [id number] Report Number: [id number] PROCEDURE INFORMATION: Exam: XR Chest Exam date and time: 06/19/2020 11:47 PM Age: 30 years old Clinical indication: Chest pain; Type not specified TECHNIQUE: Imaging protocol: XR of the chest Views: 1 view. COMPARISON: CR XR chest 2V* [id number] 07/04/2019 6:10 AM FINDINGS: Lungs: Unremarkable. No consolidation. Pleural spaces: Unremarkable. No pleural effusion. No pneumothorax. Heart/Mediastinum: Unremarkable. No cardiomegaly. Diaphragm: Mild elevation of the left diaphragm. Bones/joints: Unremarkable. XR/XR chest 1V portable [id number] IMPRESSION: No acute findings. Dictated By: Brown Rodriguez Signed By: Brown Rodriguez Signed Date/Time: 06/20/20 0000 DD/ 2358 EKG Data^: EKG 1: EKG interpretation date: 06/19/20 EKG interpretation time: 23:05 Interpretation: Sinus rhythm Rate [address] elevation or depression changes noted Discharge Plan Discharge Patient Disposition: Home Clinical Impression: Atypical chest pain Condition: Stable Prescriptions: No Action ibuprofen 200 mg Tablet 400 mg PO PRN RF: 0 fluoxetine 20 mg capsule 20 mg PO DAILY RF: 0 Sprintec (28) 0.25-35 mg-mcg tablet 1 tab PO DAILY Qty: 28 RF: 0 Discharge Orders: Discharge ED (Routine); Ordered 06/20/20 Ordered By: Lyly Rosenthal Patient Instructions: Chest Pain - Noncardiac, Chest Pain - Chest Wall Activity Restrictions/Additional Instructions: As discussed you may return to the emergency department for worsening chest pain, shortness of breath, difficulty breathing, fevers, or any other concerns you may have. Otherwise if pain persists you may follow-up with primary care. 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
--- NOTE | 2020-06-19 23:39 | XRR_ITS ---
PROCEDURE INFORMATION: Exam: XR Chest Exam date and time: 06/19/2020 11:47 PM Age: 30 years old Clinical indication: Chest pain; Type not specified TECHNIQUE: Imaging protocol: XR of the chest Views: 1 view. COMPARISON: CR XR chest 2V* [id number] 07/04/2019 6:10 AM FINDINGS: Lungs: Unremarkable. No consolidation. Pleural spaces: Unremarkable. No pleural effusion. No pneumothorax. Heart/Mediastinum: Unremarkable. No cardiomegaly. Diaphragm: Mild elevation of the left diaphragm. Bones/joints: Unremarkable. XR/XR chest 1V portable [id number] IMPRESSION: No acute findings.
--- NOTE | 2020-06-19 23:39 | ECG_ITS ---
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 Measurements Intervals [place] Rate: 82 P: 27 FL: 148 QRS: 58 QRSD: 95 T: 22 QT: 357 QTc: 419 Interpretive Statements SINUS RHYTHM Compared to ECG 07/04/2019 07:14:27 Myocardial infarct finding no longer present Electronically Signed On 06-20-2020 18:54:26 WARP DRESSER by Danie Rebolledo M.D. [email or web address] [email or web address] mississippi medical centerLinQMartholmes county joel pomerene memorial hospitalZhijiang [employer]/store/NU/[id number] f
[2020-06-20] MEDS: ondansetron 4 MG Tablet PO (00:21)
[2020-06-20] MEDS: meclizine 25 mg tablet 50 MG PO (00:21)
[2020-06-20 00:41] LABS: Basophils % 0.5 %; Eosinophils # 0.2 10^3/uL (0.0-0.8); Hematocrit 42.6 % (37.0-47.0); Hemoglobin 13.8 g/dL (11.5-15.3); Lymphocytes # 2.6 10^3/uL (0.8-4.8); Lymphocytes % 34.7 %; Mean Corpuscular HGB Conc 32.4 g/dL (30.0-36.0); Mean Corpuscular Hemoglobin 28.9 pg (28.0-34.0); Mean Corpuscular Volume 89.3 fL (81-99); Monocytes # 0.6 10^3/uL (0.2-0.9); Monocytes % 8.1 %; Neutrophils # 3.96 10^3/uL (1.8-7.7); Neutrophils % 53.4 %; Nucleated Red Blood Cells % 0 %; Platelet Count 314 10^3/cmm (130-400); Red Blood Count 4.77 10^6/uL (4.1-5.3); Red Cell Distribution Width 12.6 % (12.1-15.1); White Blood Count 7.4 10^3/uL (4.0-10.0)
[2020-06-20 00:49] LABS: HCG, Serum Qual Negative (Negative)
[2020-06-20 00:55] VITALS: BP 131/93; PULSE 89; RESP 14; O2SAT 99
[2020-06-20 01:00] LABS: Alanine Aminotransferase 29 U/L (0-33); Albumin Level 3.9 g/dL (3.5-5.2); Alkaline Phosphatase 84 IU/L (35-105); Anion Gap 15.5 (5-19); Aspartate Amino Transferase 14 U/L (0-32); Blood Urea Nitrogen 13 mg/dL (6-20); Calcium 8.9 mg/dL (8.5-10.5); Carbon Dioxide 23 mmol/L (22-29); Chloride 99 mmol/L (98-107); Globulin 2.4 g/dL (1.3-4.6); Glomerular Filtration Rate 146.9 mL/min (90-130); Glucose 283 mg/dL (65-115); Osmolality Calculated 286 mOsm/kg (285-295); Potassium 4.5 mmol/L (3.5-5.1); Sodium 133 mmol/L (136-145); Total Bilirubin 0.2 mg/dL (0.15-1.2); Total Protein 6.3 g/dL (6.6-8.7)
[2020-06-20 01:01] LABS: Troponin(5th) Baseline 6 ng/L (0-10)
[2020-06-20 01:41] VITALS: BP 135/76; PULSE 78; RESP 18; O2SAT 95
== END 2020-06-20 01:42 | disposition home or self-care (01) ==
PROVIDERS: Emergency Provider Physician Assistant
DX: R07.89 Other chest pain (principal); F17.210 Nicotine dependence, cigarettes, uncomplicated
CPT/HCPCS: 71045; 80053; 84484; 84703; 85025; 93005; 99283; J8597; Q0162

== ENCOUNTER 2021-01-29 09:00 | Emergency (ER) | payer SELFPAY ==
[2021-01-29 09:12] VITALS: BP 143/83; PULSE 94; RESP 20; O2SAT 97; BMI 54.1
--- NOTE | 2021-01-29 09:18 | ED_ITS ---
HPI - Back Pain/Injury General: Chief Complaint: Back Pain/Injury Stated Complaint: BACK PAIN - NO INJURY Time Seen by Provider: 01/29/21 09:01 Source: patient Mode of arrival: ambulatory Limitations: no limitations History of Present Illness: HPI Narrative: Patient is a 31-year-old female here for complaints of lower back and right sided back pain. She states pain began yesterday. She has not had any known injury or trauma. She states she occasionally and chronically suffers from lower back pain. Patient is morbidly obese. She states her pain currently radiates down into her right buttock and into her right leg above the knee. She is not complaining of numbness or tingli ng. She does not complain of saddle anesthesia. She has not had any episodes of urinary retention or bowel incontinence. Pain seems to be worse with movement of her right leg and rotation of her back. No fever/chills. No IV drug use. MD elicited complaint: back pain Pertinent past history: prior back pain Timing: constant Severity: severe Pain scale (0-10): 9 Similar Symptoms Previously: Yes Location: lumbar spine and right lower back Radiation: right upper leg Exacerbating factors: movement, supine positioning and walking Relieving factors: none Associated symptoms: Reports difficulty walking (secondary to pain); Deny abdominal pain, chills, dysuria, fatigue, fever(s) or urinary urgency Work related injury: No Review of Systems Const: Denies: fever(s), chills, body aches, fatigue or malaise Card: Denies: chest pain Resp: Denies: dyspnea GI: Denies: abdominal pain : Denies: flank pain, dysuria, urinary frequency, urinary urgency or pelvic pain Musc: Reports: back pain, extremity pain and joint pain; Denies: neck pain, extremity swelling, joint swelling, joint redness or joint warmth Skin/Breast: Denies: rash Neuro: Reports: difficulty walking (secondary to pain); Denies: headache(s), numbness in extremities, weakness in extremities, sensory changes or dizziness PFS ED PFSH: Social History Smoking and tobacco status: current every day smoker Female Reproductive History: Date of last menstrual period: 01/29/21 Physical Exam Const: COMMON NORMALS: no acute distress, patient oriented x3, no limitations and alert GENERAL APPEARANCE: cooperative NUTRITIONAL APPEARANCE: obese morbidly obese (BMI is 54) ORIENTATION/CONSCIOUSNESS: Yes awake, Yes oriented to person, Yes oriented to place and Yes oriented to time : COMMON NORMALS: Yes no CVA tenderness BLADDER/KIDNEY EXAM: Yes no CVA tenderness Back/Pelvis: COMMON NORMALS: no CVA tenderness THORACIC SPINE/UPPER BACK: Yes normal to inspection, Yes thoracic ROM normal, No thoracic spinal tenderness, No paraspinal muscle tenderness and No paraspinal muscle spasm LUMBAR SPINE/LOWER BACK: Yes straight leg raise positive right SACROILIAC JOINTS: Yes SI joint(s) abnormal SI joint details: tender to palpation (R) BACK IMAGE (FEMALE): 1. 2. TTP; palpation directly reproduces pts pain Extremity: COMMON NORMALS: normal to inspection, full ROM, capillary refill normal, no joint enlargement, no clubbing, cyanosis or edema, no calf tenderness and no pedal edema GENERAL: Yes normal exam except as noted Neuro: COMMON NORMALS: patient oriented x3, moves all extremities, no focal motor deficits and no sensory deficits noted SENSORIUM/ORIENTATION: Yes alert, Yes oriented to person, Yes oriented to place and Yes oriented to time Skin: COMMON NORMALS: no rashes or lesions noted GENERAL SKIN EXAM: no rashes or lesions noted TRAUMA: no lacerations or abrasions Course ED course: Requesting we don't use Toradol to treat as it previously made her very irritable and angry Reevaluation(s): Reevaluation #1: Patient states her pain went from an 8-9/10 to barely a 1 Vital Signs: Vital signs: Vital Signs Pulse Rate 94 01/29/21 09:12 Respiratory Rate 20 H 01/29/21 09:12 Blood Pressure 143/83 01/29/21 09:12 Pulse Oximetry 97 01/29/21 09:12 MDM - Back Pain/Injury MDM Narrative: Medical decision making narrative: Patient's pain has almost fully subsided after medications. She ambulated here without difficulty. She has no red flags/neuro deficits on history or physical exam. Patient is stable for DC with recommendations for PCP follow up next week if symptoms persist. Return to ED precautions given. 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
[2021-01-29] MEDS: dexamethasone 10 mg/mL INJ IM (09:47)
[2021-01-29] MEDS: morphine 4 mg/mL SDV 1 mL IM (09:48)
[2021-01-29] MEDS: orphenadrine 30 mg/mL Inj 2 mL 60 MG IM (09:48)
[2021-01-29 11:10] VITALS: BP 141/71; PULSE 87; O2SAT 98
== END 2021-01-29 11:11 | disposition home or self-care (01) ==
PROVIDERS: Emergency Provider Physician Assistant
DX: M54.50 Low back pain, unspecified (principal); F17.210 Nicotine dependence, cigarettes, uncomplicated
CPT/HCPCS: 96372; 99283; J1100; J2270; J2360

== ENCOUNTER 2021-03-06 20:22 | Emergency (ER) | payer SELFPAY ==
[2021-03-06 21:04] VITALS: BP 127/97; PULSE 85; RESP 20; TEMP 36.8; O2SAT 96; BMI 52.0
[2021-03-06 21:22] VITALS: BP 125/85; PULSE 99; RESP 18; O2SAT 94
[2021-03-06 21:40] LABS: SARS Covid-2 Antigen Negative (Negative)
--- NOTE | 2021-03-07 02:03 | ED_ITS ---
HPI - General Adult General: Chief complaint: COVID symptoms Stated complaint: F\N\SOB\Loss of Smell and Taste\Muscle Aches Time Seen by Provider: 03/07/21 00:47 History of Present Illness: HPI narrative: HPI: This is a [31] yo patient w/ hx of covid symptoms x 30 days (no prior tests) presenting to the ED with request for covid testing for work. Reports contact with covid positive patients. Reports cough, malaise, generalized weakness, loss of taste x 30 days. Denies chest pain, N/V, diaphoresis, exertional shortness of breath, GI or other complaints. Denies any pleuritic chest pain, recent surgery/immobilization/travel, or hematemesis or hx of VTE in the past. is sick with covid for 3 weeks Onset: 30 days ago Duration: ongoing for the last 4 weeks Location: home Severity: None Review of Systems Narrative: Constitutional: No subjective fever, no generalized weakness HEENT: No vision changes, +loss of taste CV: No chest pain, no palpitations PULM: +cough, +dyspnea. GI: No abdominal pain, no N/V/D. : No dysuria MSKEL: No muscle pain SKIN: No new rashes, no lesions. NEURO: No headache, no focal weakness. HEME: No visible bruises PSYCH: Normal mood PFS ED PFSH: Social History Smoking and tobacco status: current every day smoker Female Reproductive History: Date of last menstrual period: 02/02/21 Physical Exam Narrative: EXAM NARRATIVE: Head: Atraumatic Eyes: PERRL, conjunctiva without injection ENT: Mucous membrane moist NECK: Supple without lymphadenopathy LUNGS: Clear lung sounds, no crackles/wheezes/rhonchi on exam CV: RRR ABDOMEN: Soft, nontender EXTREMITY: Normal ROM SKIN: No rash or erythema NEURO: Awake and alert. No focal motor deficits. PSYCH: Normal mood and affect. Course Vital Signs: Vital signs: Vital Signs Temperature 98.2 F 03/06/21 21:04 Pulse Rate 99 03/06/21 21:22 Respiratory Rate 18 03/06/21 21:22 Blood Pressure 125/85 03/06/21 21:22 Pulse Oximetry 94 03/06/21 21:22 MDM - General Adult MDM Narrative: Medical decision making narrative: [31]yo patient presenting to the ED with request for covid test. HDS, no signs of hyoxia or lung findings. Patient does not have co-morbidities including cancer, CKD, chronc lung disease, immunocompromised state . Workup: COVID antigen with PCR send out Intervention: Reassess [29] On reassessment, patient continues to in in respiratory distress. No signs of hypoxia. On ambulation, patient continues to have persistent O2 sat > 95%. Patient has been swabbed for the COVID PCR and has been formed that patient will have access to information on the patient portal. Disposition: Discharge. Strict return instructions discussed at bedside including any signs of respiratory distress, dehydration, persistent fever, or any new or concerning symptoms. Patient in agreement with the plan and reassures me that the patient will follow up a primary care provider in 24-48 hrs for revaluation for any concerns or other issues. Lab Data: Labs: Lab Results 03/06/21 21:05 SARS-CoV-2 Ag (Rap id) Negative (Negative) Discharge Plan Discharge Patient Disposition: Home Clinical Impression: Cough, Dyspnea Condition: Stable Prescriptions: No Action fluoxetine 20 mg capsule 20 mg PO DAILY RF: 0 Sprintec (28) 0.25-35 mg-mcg tablet 1 tab PO DAILY Qty: 28 RF: 0 cyclobenzaprine 10 mg tablet 10 mg PO TID Qty: 14 RF: 0 diclofenac sodium 50 mg tablet,delayed release (DR/EC) 50 mg PO Q12H PRN (Reason: pain) Qty: 20 RF: 0 Discharge Orders: Discharge ED (Routine); Ordered 03/07/21 Ordered By: Richard Raman Discharge Diet: Advance as tolerated Discharge Activity: Resume usual activity Patient Instructions: SARS (Severe Acute Respiratory Syndrome) (ED) Activity Restrictions/Additional Instructions: Come back to the emergency room if your symptoms worsen, have any shortness of breath, fever/chills, dehydration, inability tolerate p.o., any difficulty breathing, or any new or concerning complaints. 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
[2021-03-07 02:27] VITALS: O2SAT 96
[2021-03-07 02:34] VITALS: BP 140/93; PULSE 94; RESP 18; O2SAT 96
[2021-03-07 16:14] LABS: Coronavirus Test Green County Detected
== END 2021-03-07 02:37 | disposition home or self-care (01) ==
PROVIDERS: Emergency Provider Emergency Medicine
DX: U07.1 COVID-19 (principal); F17.210 Nicotine dependence, cigarettes, uncomplicated
CPT/HCPCS: 87426; 87635; 99282

== ENCOUNTER 2021-05-12 22:08 | Emergency (ER) | payer SELFPAY ==
[2021-05-12 22:24] VITALS: BP 138/90; PULSE 91; RESP 18; TEMP 36.2; O2SAT 98; BMI 49.9
[2021-05-12 23:02] LABS: Basophils % 0.5 %; Eosinophils # 0.2 10^3/uL (0.0-0.8); Eosinophils % 2.4 %; Hematocrit 43.9 % (37.0-47.0); Hemoglobin 14.7 g/dL (11.5-15.3); Lymphocytes # 2.9 10^3/uL (0.8-4.8); Lymphocytes % 34.2 %; Mean Corpuscular HGB Conc 33.5 g/dL (30.0-36.0); Mean Corpuscular Hemoglobin 29.6 pg (28.0-34.0); Mean Corpuscular Volume 88.3 fl (81-99); Mean Platelet Volume 10.1 fL (7.4-10.4); Monocytes # 0.5 10^3/uL (0.2-0.9); Monocytes % 5.6 %; Neutrophils # 4.76 10^3/uL (1.8-7.7); Neutrophils % 57.2 %; Nucleated Red Blood Cells % 0 %; Platelet Count 299 10^3/cmm (130-400); Red Blood Count 4.97 10^6/uL (4.1-5.3); Red Cell Distribution Width 12.7 % (12.1-15.1); White Blood Count 8.3 10^3/uL (4.0-10.0)
[2021-05-12 23:25] LABS: HCG Qualitative Urine. Negative (Negative)
[2021-05-12 23:38] LABS: Alanine Aminotransferase 25 U/L (0-33); Albumin Level 4.2 g/dL (3.5-5.2); Alkaline Phosphatase 110 IU/L (35-105); Aspartate Amino Transferase 13 U/L (0-32); Blood Urea Nitrogen 12 mg/dL (6-20); Carbon Dioxide 23 mmol/L (22-29); Chloride 98 mmol/L (98-107); Globulin 2.8 g/dL (1.3-4.6); Glomerular Filtration Rate 145.9 mL/min (90-130); Glucose 321 mg/dL (65-115); Osmolality Calculated 292 mOsm/kg (285-295); Sodium 135 mmol/L (136-145); Thyroid Stimulating Hormone 5.75 uIU/mL (0.27-4.20); Total Bilirubin 0.2 mg/dL (0.15-1.2)
[2021-05-12 23:40] LABS: Acetaminophen < 5.0 ug/mL (10-30); Alcohol Level < 10 mg/dL (0-10); Salicylate < 0.3 mg/dL (3-10)
--- NOTE | 2021-05-12 23:55 | ED.C_ITS ---
HPI - Psych General: Chief Complaint: Psychiatric Symptoms Stated Complaint: Si Depression Time Seen by Provider: 05/12/21 22:39 History of Present Illness: HPI Narrative: 31-year-old female with a history of depression. She has 1 prior hospitalization 5 or 6 years ago for depression. She has never attempted suicide. She notes that she has been off depression medication for a year or more. She states that the last 6 months her depression has been worsening. This is to the point now, then in the last week she has had some suicidal thoughts. She denies a plan. She knows that she will not act on these thoughts, but the thoughts scare her that her depression is that bad. She denies audio or visual hallucinations. MD complaint: suicidal ideation and feels depressed Onset (ago): day(s) Duration: intermittent History of same: No Relieving factors: none Exacerbating factors: none Associated symptoms: Reports depression and suicidal ideation; Deny auditory hallucinations, visual hallucinations, delusions or homicidal ideation Treatments prior to arrival: none If self harm: admits thoughts of self harm Review of Systems Const: Denies: fever(s) or chills Card: Denies: chest pain Resp: Denies: dyspnea, productive cough or non-productive cough GI: Denies: abdominal pain, nausea or vomiting Neuro: Denies: headache(s) Psych: Reports: depression and suicidal ideation; Denies: visual hallucinations, auditory hallucinations or homicidal ideation PFS ED PFSH: Social History Smoking and tobacco status: current every day smoker Female Reproductive History: Date of last menstrual period: 05/12/21 Physical Exam Const: GENERAL APPEARANCE: cooperative and comfortable ORIENTATION/CONSCIOUSNESS: Yes awake, Yes oriented to person, Yes oriented to place and Yes oriented to time HENMT: COMMON NORMALS: normocephalic and atraumatic HEAD & SCALP: normocephalic and atraumatic Eye: COMMON NORMALS: Equal, round and reactive pupils present and EOMs intact bilaterally PUPIL: Yes Equal, round and reactive pupils present Chest: COMMONS NORMALS: normal inspection of the chest Resp: COMMON NORMALS: normal respiratory effort, No use of accessory muscles and clear to auscultation bilaterally AUSCULTATION: clear to auscultation bilaterally Cardio: COMMON NORMALS: regular rate and regular rhythm RATE: regular rate RHYTHM: regular rhythm GI: COMMON NORMALS: Normal to inspection, nondistended, normoactive bowel sounds present Neuro: SENSORIUM/ORIENTATION: Yes oriented to person, Yes oriented to place a nd Yes oriented to time Psych: THOUGHT CONTENT: No delusions Course Consultations: Consultation #1: Teodoro Time: 23:56 Vital Signs: Vital signs: Vital Signs Temperature 97.1 F L 05/12/21 22:24 Pulse Rate 77 05/13/21 00:07 Respiratory Rate 16 05/13/21 00:07 Blood Pressure 125/90 05/13/21 00:07 Pulse Oximetry 97 05/13/21 00:07 MDM - Psych MDM Narrative: Medical decision making narrative: This patient has had worsening depression with suicidal thoughts. Although she has had these thoughts, she states she will not act upon them. She has no plan of suicide. She is not delusional. She is not having hallucinations. Her labs are stable, save a blood sugar of 320. She was on fluoxetine at one point. She has been off of this year. I consulted with our psychiatrist on-call. He and I agree that as long as this patient has no plan, and no intentions of acting on her thoughts, her lethality is low, and therefore she may be discharged home if she wishes. She was given the option of admission to the Neuropsych Unit, but declined. She will instead follow-up with behavioral health at the first available chance next week. Case management referrals been placed for an appointment. She will go on fluoxetine 20 mg daily she knows to return for any change in her symptoms including formulation of a plan, or worsening suicidal ideation. Lab Data: Labs: Lab Results 05/12/21 05/12/21 05/12/21 22:59 22:59 23:19 WBC 8.3 10^3/uL 10^3/ uL (4.0-10.0) RBC 4.97 10^6/uL 10^6 /uL (4.1-5.3) Hgb 14.7 g/dL g/dL (11.5-15.3) Hct 43.9 % % (37.0-47.0) MCV 88.3 fl fl (81-99) MCH 29.6 pg pg (28.0-34.0) MCHC 33.5 g/dL g/dL (30.0-36.0) RDW 12.7 % % (12.1-15.1) Plt Count 299 10^3/cmm 10^3 /cmm (130-400) MPV 10.1 fL fL (7.4-10.4) Neut % (Auto) 57.2 % % Lymph % (Auto) 34.2 % % [place] % (Auto) 5.6 % % Eos % (Auto) 2.4 % % Baso % (Auto) 0.5 % % Neut # (Auto) 4.76 10^3/uL 10^3 /uL (1.8-7.7) Lymph # (Auto) 2.9 10^3/uL 10^3/ uL (0.8-4.8) [place] # (Auto) 0.5 10^3/uL 10^3/ uL (0.2-0.9) Eos # (Auto) 0.2 10^3/uL 10^3/ uL (0.0-0.8) Baso # (Auto) 0.0 10^3/uL 10^3/ uL (0.0-0.1) Nucleated RBC % (a uto) 0 % % Nucleated RBCs # 0.0 /100WBC /100W BC Sodium 135 mmol/L L mmol /L (136-145) Potassium 4.0 mmol/L mmol/L (3.5-5.1) Chloride 98 mmol/L mmol/L (98-107) Carbon Dioxide 23 mmol/L mmol/L (22-29) Anion Gap 18.0 (5-19) BUN 12 mg/dL mg/dL (6-20) Creatinine 0.5 mg/dL mg/dL (0.5-0.9) GFR Calculation 145.9 mL/min H mL /min (90-130) Glucose 321 mg/dL H mg/dL (65-115) Calculated Osmolal ity 292 mOsm/kg mOsm/ kg (285-295) Calcium 10.0 mg/dL mg/dL (8.5-10.5) Total Bilirubin 0.2 mg/dL mg/dL (0.15-1.2) AST 13 U/L U/L (0-32) ALT 25 U/L U/L (0-33) Alkaline Phosphata se 110 IU/L H IU/L (35-105) Total Protein 7.0 g/dL g/dL (6.6-8.7) Albumin 4.2 g/dL g/dL (3.5-5.2) Globulin 2.8 g/dL g/dL (1.3-4.6) TSH 5.75 uIU/mL H uIU /mL (0.27-4.20) HCG, Qual Negative (Negative) Urine Color Urine Appearance Urine pH Ur Specific Gravit y Urine Protein Urine Glucose (UA) Urine Ketones Urine Blood Urine Nitrate Urine Bilirubin Urine Urobilinogen Ur Leukocyte Camille ase Urine RBC Urine WBC Ur Squamous Epith Cells Amorphous Sediment Urine Bacteria Urine Yeast Salicylates < 0.3 mg/dL L mg/ dL (3-10) Urine Opiates Scre en Acetaminophen < 5.0 ug/mL L ug/ mL (10-30) Ur Barbiturates Sc reen Ur Phencyclidine S crn Ur Amphetamines Sc reen U Benzodiazepines Scrn Urine Cocaine Scre en U Marijuana (THC) Screen Ethyl Alcohol < 10 mg/dL mg/dL (0-10) 05/12/21 05/12/21 23:19 23:19 WBC RBC Hgb Hct MCV MCH MCHC RDW Plt Count MPV Neut % (Auto) Lymph % (Auto) [place] % (Auto) Eos % (Auto) Baso % (Auto) Neut # (Auto) Lymph # (Auto) [place] # (Auto) Eos # (Auto) Baso # (Auto) Nucleated RBC % (a uto) Nucleated RBCs # Sodium Potassium Chloride Carbon Dioxide Anion Gap BUN Creatinine GFR Calculation Glucose Calculated Osmolal ity Calcium Total Bilirubin AST ALT Alkaline Phosphata se Total Protein Albumin Globulin TSH HCG, Qual Urine Color Alethea (Yellow) Urine Appearance Sl cloudy A (CLEAR) Urine pH 5 (5-7) Ur Specific Gravit y 1.020 (1.005-1.030) Urine Protein 1+ H (Negative) Urine Glucose (UA) 4+ H (Normal) Urine Ketones Negative (Negative) Urine Blood 3+ H (Negative) Urine Nitrate Negative (Negative) Urine Bilirubin Neg (Negative) Urine Urobilinogen Norm mg/dL mg/dL (Negative) Ur Leukocyte Camille ase Trace H (Negative) Urine RBC Too numerous to c nt /hpf H /hpf (0-2) Urine WBC >100 /hpf H /hpf (0-5) Ur Squamous Epith Cells 25-40 /hpf H /hpf (0-5) Amorphous Sediment Not Reportable Urine Bacteria 2+ /hpf H /hpf (NONE) Urine Yeast Trace /hpf /hpf Salicylates Urine Opiates Scre en Negative ng/mL ng /mL (Negative) Acetaminophen Ur Barbiturates Sc reen Negative ng/mL ng /mL (Negative) Ur Phencyclidine S crn Negative ng/mL ng /mL (Negative) Ur Amphetamines Sc reen Negative ng/mL ng /mL (Negative) U Benzodiazepines Scrn Negative ng/mL ng /mL (Negative) Urine Cocaine Scre en Negative ng/mL ng /mL (Negative) U Marijuana (THC) Screen Negative ng/mL ng /mL (Negative) Ethyl Alcohol Discharge Plan Discharge Patient Disposition: Home Clinical Impression: Depression Qualifiers: Depression Type: major depressive disorder Major depression recurrence: recurrent Active/Remission status: currently active Psychotic features: without psychotic features Condition: Stable Prescriptions: Continued fluoxetine 20 mg capsule 20 mg PO DAILY Qty: 30 RF: 0 No Action Sprintec (28) 0.25-35 mg-mcg tablet 1 tab PO DAILY Qty: 28 RF: 0 cyclobenzaprine 10 mg tablet 10 mg PO TID Qty: 14 RF: 0 diclofenac sodium 50 mg tablet,delayed release (DR/EC) 50 mg PO Q12H PRN (Reason: pain) Qty: 20 RF: 0 Discharge Orders: Discharge ED (Routine); Ordered 05/12/21 Ordered By: Suresh Bautista Discharge Diet: Usual diet Discharge Activity: Increase activity as tolerated Patient Instructions: Depression (ED) Activity Restrictions/Additional Instructions: Medication as directed. A case management referral has been placed to obtain you a follow-up appointment. If you do not hear from them by Saturday, Dial [phone] during normal business hours and asked for the ER case coordinator. Return for any thoughts or wishes to harm your self or anyone else, or any plan to do so. Stand Alone Forms: Work/School Release Coding Level of Care Code ED Cleaning Maid for Harley Recinos
[2021-05-13 00:07] VITALS: BP 125/90; PULSE 77; RESP 16; O2SAT 97
[2021-05-13 00:44] LABS: Amphetamines Screen Urine Negative (Negative); Barbiturates Screen Urine Negative (Negative); Benzodiazepines Screen Urine Negative (Negative); Cocaine Screen Urine Negative (Negative); Opiate Screen Urine Negative (Negative); PCP Screen Urine Negative (Negative); THC Screen Urine Negative (Negative)
[2021-05-13 00:45] LABS: Add Urine Microscopic? YES; Bilirubin Urine Neg (Negative); Blood Urine 3+ (Negative); Glucose Urine UA 4+ (Normal); Ketones Urine Negative (Negative); Leukocyte Esterase Urine Trace (Negative); Nitrate Urine Negative (Negative); Protein Urine 1+ (Negative); Urine Color Amber (Yellow); Urobilinogen Urine Norm (Negative); pH Urine 5 (5-7)
[2021-05-13 00:48] LABS: RBC Urine TOO NUMEROUS TO CNT /hpf (0-2); Squamous Epithelial Cell Urine 25-40 /hpf (0-5); WBC Urine >100 /hpf (0-5)
[2021-05-13 00:49] LABS: Bacteria Urine 2+ /hpf
[2021-05-13 00:50] LABS: Add Urine Culture? No
--- NOTE | 2021-05-18 11:33 | DCPLANNER ---
healthcare consulting manager had message to speak with patient about services at [facility]. healthcare consulting manager called phone number [phone], unable to speak with patient at this time, a voicemail was left for patient to return test case developer phone call.
== END 2021-05-13 00:08 | disposition home or self-care (01) ==
PROVIDERS: Nurse Practitioner Family; Emergency Provider Emergency Medicine
DX: F33.8 Other recurrent depressive disorders (principal); F17.210 Nicotine dependence, cigarettes, uncomplicated
CPT/HCPCS: 80053; 80306; 80307; 81001; 81025; 84443; 85025; 99283

== ENCOUNTER 2021-08-11 12:10 | Emergency (ER) | payer SELFPAY ==
[2021-08-11 12:22] VITALS: BP 174/89; PULSE 87; RESP 20; TEMP 36.4; O2SAT 97; BMI 51.5
--- NOTE | 2021-08-11 12:45 | XR_ITS ---
WS: [id number] Exam: XR hip RT 2-3V wo/w pel* [id number] Date/Time of Exam: 08/11/2021 12:49 PM Reason For Exam: fall, pain; one view pelvis too please Comparison 01/02/2018. Findings: No fractures or bone anomalies are noted. No unusual soft tissue masses or calcifications are seen. The bony elements of the hip are in adequate alignment. XR/XR hip RT 2-3V wo/w pel* [id number] IMPRESSION: Negative right hip. Tonnis classification: 0
--- NOTE | 2021-08-11 12:45 | ED_ITS ---
HPI - Fall General: Chief Complaint: Fall Stated Complaint: fell on 08/08/ severe hip & back pain Time Seen by Provider: 08/11/21 12:34 Source: patient Mode of arrival: ambulatory Limitations: no limitations History of Present Illness: Patient is a 31-year-old female presents to ED today for evaluation of right hip pain following a fall 3 days ago. Patient states she was in her yard when she tripped in a hole and fell onto her right hip. Patient tells me she has been able to bear weight on the extremity since the fall but states it has been painful. She denies any other injuries related to the fall and has no other complaints at this time. complaint: fall Onset (ago): day(s) Fall from: standing Fall witnessed: no Place fall occurred: home Loss of consciousness: None Prolonged down time: no Symptoms prior to fall: none Context: tripped/slipped Associated symptoms-after fall: Reports no associated symptoms; Denies abdominal pain, chest pain, headache(s), hematuria or neck pain Review of Systems Card: Denies: chest pain or palpitations Resp: Denies: dyspnea GI: Denies: abdominal pain, nausea or vomiting : Denies: flank pain or hematuria Musc: Reports: joint pain (R hip); Denies: neck pain, back pain, extremity pain, extremity swelling, joint swelling or joint redness Neuro: Denies: headache(s), numbness in extremities, weakness in extremities or sensory changes [facility] ED PFSH: Social History Smoking and tobacco status: current every day smoker Female Reproductive History: Date of last menstrual period: 06/08/21 Physical Exam Const: COMMON NORMALS: no acute distress, patient oriented x3, no limitations and alert GENERAL APPEARANCE: cooperative NUTRITIONAL APPEARANCE: obese morbidly obese ORIENTATION/CONSCIOUSNESS: Yes awake, Yes oriented to person, Yes oriented to place and Yes oriented to time HENMT: COMMON NORMALS: normocephalic and atraumatic HEAD & SCALP: normocephalic and atraumatic Neck/C-Spine: COMMON NORMALS: full ROM CERVICAL SPINE: Yes cervical ROM normal, No pain with cervical ROM, No Cervical spine tenderness, No step off deformity and No Paracervical muscle tenderness Chest: COMMONS NORMALS: normal inspection of the chest and normal palpation of entire chest wall Resp: COMMON NORMALS: normal respiratory effort and clear to auscultation bilaterally AUSCULTATION: clear to auscultation bilaterally Cardio: COMMON NORMALS: regular rate and regular rhythm RATE: regular rate RHYTHM: regular rhythm Back/Pelvis: COMMON NORMALS: thoracic and lumbar spine normal to inspection, no thoracic nor lumbar tenderness and thoraco-lumbar ROM normal Extremity: COMMON NORMALS: capillary refill normal, no clubbing, cyanosis or edema, no calf tenderness and no pedal edema GENERAL: Yes normal exam except as noted RIGHT LOWER EXTREMITY: Yes hip joint (pt tender to posteriolateral R hip joint) Right hip: Yes palpation (palpation of anatomy limited by body habitus) and Yes neurovascular exam (normal) Neuro: MAX COMA SCALE: document GCS findings Max coma scale eye opening: Spontaneous Max coma scale verbal response: Orientated [place] coma scale motor response: Obey commands Max coma scale total score: 15 COMMON NORMALS: patient oriented x3, moves all extremities, no focal motor deficits, no sensory deficits noted and gait normal SENSORIUM/ORIENTATION: Yes alert, Yes oriented to person, Yes oriented to place and Yes oriented to time Skin: COMMON NORMALS: no rashes or lesions noted GENERAL SKIN EXAM: no rashes or lesions noted TRAUMA: no lacerations or abrasions Course Vital Signs: Vital signs: Vital Signs Temperature 97.6 F 08/11/21 12:22 Pulse Rate 87 08/11/21 12:22 Respiratory Rate 20 H 08/11/21 12:22 Blood Pressure 174/89 08/11/21 12:22 Pulse Oximetry 97 08/11/21 12:22 MDM - Fall Medical Decision Making XRs negative. Recommend conservative treatment at home and follow up with PCP in 1-2 weeks if symptoms persist. Offered to place referral for CM but patient states she wants to wait until her insurance is active through her employer. Lab Data Radiology Impressions Hip/Pelvis X-Ray 08/11/21 12:45 IMPRESSION: Negative right hip. Tonnis classification: 0 Discharge Plan Discharge Patient Disposition: Home Clinical Impression: Injury of hip, right Qualifiers: Encounter type: initial encounter Qualified Code(s): S79.911A - Unspecified injury of right hip, initial encounter Condition: Stable Prescriptions: Continued cyclobenzaprine 10 mg tablet 10 mg PO TID Qty: 14 0RF diclofenac sodium 50 mg tablet,delayed release (DR/EC) 50 mg PO Q12H PRN (Reason: pain) Qty: 14 0RF No Action Sprintec (28) 0.25-35 mg-mcg tablet 1 tab PO DAILY Qty: 28 0RF fluoxetine 20 mg capsule 20 mg PO DAILY Qty: 30 0RF Rx Instructions: EDIE LAST FILLED ON 05/18/2019-PT STATES SHE IS STILL TAKING THIS MEDICATION Discharge Orders: Discharge ED (Routine); Ordered 08/11/21 Ordered By: Lyly Rosenthal Stand Alone Forms: Work/School Release Coding Level of Care Code ED Electronic Gluer for Chg Fwd Exam Comprehensive
[2021-08-11 13:35] VITALS: BP 152/103; PULSE 52; RESP 18; TEMP 36.4; O2SAT 96
[2021-08-11 13:38] VITALS: BP 153/84
== END 2021-08-11 13:41 | disposition home or self-care (01) ==
PROVIDERS: Emergency Provider Physician Assistant
DX: S79.911A Unspecified injury of right hip, initial encounter (principal); W01.0XXA Fall on same level from slipping, tripping and stumbling without subsequent striking against object, initial encounter; F17.210 Nicotine dependence, cigarettes, uncomplicated
CPT/HCPCS: 73502; 99282

== ENCOUNTER 2021-09-28 05:21 | Emergency (ER) | payer SELFPAY ==
[2021-09-28 05:28] VITALS: BP 163/88; PULSE 90; RESP 18; TEMP 36.6; O2SAT 95; BMI 51.5
--- NOTE | 2021-09-28 05:31 | ED_ITS ---
Documented by User: Dmitri Baltazar MD 10/09/21 03:01 HPI - Dental/Oral General: Chief complaint: Dental/Oral Stated complaint: sore in mouth Time Seen by Provider: 09/28/21 05:31 History of Present Illness: Ms. Rausch is a 31-year-old lady with significant past medical history of diabetes not currently on medications who presents to the emergency department due to dental neck pain. She reports onset of symptoms approximately 3 weeks ago without specific known provoking factor. Initially was nagging in the right jaw region however it has subsequently become more constant worse. This is markedly worsened over the past few days. She endorses pain that radiates up to her head and down her neck. She denies associated sore throat or difficulty breathing. She has had nausea and diarrhea. No measured fevers. Overall course of symptoms has worsened. Intensity is moderate though at times severe. She has tried [id number] medications without significant relief. Denies history of dental infections and has not seen a dentist recently. Location: Tooth # (30) Onset (ago): week(s) Duration: worsening Severity: moderate Exacerbating factors: swallowing Review of Systems General: Reports: 10 or more systems reviewed and unremarkable except in HPI and below PFSH ED PFSH: Medical History Diabetes Surgical History No significant past surgical history Social History Smoking and tobacco status: current every day smoker Female Reproductive History: Date of last menstrual period: 06/08/21 Physical Exam Const: COMMON NORMALS: alert GENERAL APPEARANCE: cooperative, well developed and ill appearing (mildly) HENMT: COMMON NORMALS: normocephalic and atraumatic HEAD & SCALP: normocephalic and atraumatic OTHER: Dental caries without evidence of dental abscess on exam. Limited visualization of posterior pharynx secondary to patient's Mallampati and limited ability to open mouth which appears to be about 75% of normal Eye: COMMON NORMALS: conjunctivae normal CONJUNCTIVA: Yes conjunctivae normal SCLERA: sclerae normal Neck/C-Spine: COMMON NORMALS: supple GENERAL: Yes trachea midline OTHER: TTP Right lateral neck just below jaw Resp: COMMON NORMALS: normal respiratory effort EFFORT & INSPECTION: Yes able to speak in complete sentences Cardio: COMMON NORMALS: regular rate and regular rhythm RATE: regular rate RHYTHM: regular rhythm GI: COMMON NORMALS: Soft to palpation PALPATION: Yes Soft to palpation and No Tenderness to palpation present (GI) PERCUSSION: normal to percussion Extremity: GENERAL: Yes normal exam except as noted and No edema Neuro: COMMON NORMALS: moves all extremities SENSORIUM/ORIENTATION: Yes alert and No Orientation impaired Psych: COMMON NORMALS: mental status grossly normal and Normal thought process present THOUGHT PROCESS: Normal thought process present Course ED course: - Patient was seen and evaluated by me at bedside -Vital signs obtained - Initial evaluation notable for exam as above -Given ability to visualize posterior pharynx as well as some evidence of trismus in the context of history of diabetes likely that imaging is appropriate. This was discussed with patient. Patient care handed off to Dr. Camacho pending completion of ED evaluation. Vital Signs: Vital signs: Vital Signs Temperature 97.8 F 09/28/21 05:28 Pulse Rate 90 09/28/21 05:28 Respiratory Rate 18 09/28/21 05:28 Blood Pressure 163/88 09/28/21 05:28 Pulse Oximetry 95 09/28/21 05:28 MDM - Dental/Oral Lab Data Radiology Impressions Neck CT 09/28/21 06:22 IMPRESSION: No acute findings. Discharge Plan Discharge Patient Disposition: Home Clinical Impression: Dental caries Condition: Stable Prescriptions: New amoxicillin-pot clavulanate 875-125 mg tablet 1 tab PO BID Qty: 20 0RF hydrocodone-acetaminophen 5-325 mg tablet 1 tab PO Q6H PRN (Reason: pain) Qty: 10 0RF No Action Sprintec (28) 0.25-35 mg-mcg tablet 1 tab PO DAILY Qty: 28 0RF fluoxetine 20 mg capsule 20 mg PO DAILY Qty: 30 0RF Rx Instructions: EDIE LAST FILLED ON 05/18/2019-PT STATES SHE IS STILL TAKING THIS MEDICATION cyclobenzaprine 10 mg tablet 10 mg PO TID Qty: 14 0RF diclofenac sodium 50 mg tablet,delayed release (DR/EC) 50 mg PO Q12H PRN (Reason: pain) Qty: 14 0RF Discharge Orders: Discharge ED (Routine); Ordered 09/28/21 Ordered By: Roberto Carlos Camacho Discharge Diet: Clear Liquid Discharge Activity: Resume usual activity Patient Instructions: Opioid Safety Activity Restrictions/Additional Instructions: Clear liquid diet for 24-48 hrs. Follow up with dentist CHRISSY. Follow up with your primary care taker for mnanagement of diabetes. Stand Alone Forms: Work/School Release Sign Out Sign Out Data: Patient Sign Out occurred on 09/28/21 at 06:48. Patient's care was discussed, and care was transferred from to Roberto Carlos Camacho DO. Coding Level of Care Code ED Client Experience Specialist for Chg Fwd Documented by User: Roberto Carlos Camacho DO 09/28/21 09:11 HPI - Dental/Oral General: Chief complaint: Dental/Oral Stated complaint: sore in mouth Time Seen by Provider: 09/28/21 05:31 [facility] ED PFSH: Medical History Diabetes Surgical History No significant past surgical history Social History Smoking and tobacco status: current every day smoker Course Vital Signs: Vital signs: Vital Signs Temperature 97.8 F 09/28/21 05:28 Pulse Rate 90 09/28/21 05:28 Respiratory Rate 18 09/28/21 05:28 Blood Pressure 163/88 09/28/21 05:28 Pulse Oximetry 95 09/28/21 05:28 MDM - Dental/Oral Medical Decision Making Care assumed at change of shift. Patient has dental caries CT neck unremarkable for any masses or acute inflammatory process we will discharge patient home on Augmentin pain control medications encouraged to follow-up with primary care Medical Records I reviewed the patient's medical records. Lab Data I reviewed the patient's lab results. Radiology Impressions Neck CT 09/28/21 06:22 IMPRESSION: No acute findings. Discharge Plan Discharge Patient Disposition: Home Clinical Impression: Dental caries Condition: Stable Prescriptions: New amoxicillin-pot clavulanate 875-125 mg tablet 1 tab PO BID Qty: 20 0RF hydrocodone-acetaminophen 5-325 mg tablet 1 tab PO Q6H PRN (Reason: pain) Qty: 10 0RF No Action Sprintec (28) 0.25-35 mg-mcg tablet 1 tab PO DAILY Qty: 28 0RF fluoxetine 20 mg capsule 20 mg PO DAILY Qty: 30 0RF Rx Instructions: EDIE LAST FILLED ON 05/18/2019-PT STATES SHE IS STILL TAKING THIS MEDICATION cyclobenzaprine 10 mg tablet 10 mg PO TID Qty: 14 0RF diclofenac sodium 50 mg tablet,delayed release (DR/EC) 50 mg PO Q12H PRN (Reason: pain) Qty: 14 0RF Discharge Orders: Discharge ED (Routine); Ordered 09/28/21 Ordered By: Roberto Carlos Camacho Discharge Diet: Clear Liquid Discharge Activity: Resume usual activity Patient Instructions: Opioid Safety Activity Restrictions/Additional Instructions: Clear liquid diet for 24-48 hrs. Follow up with dentist CHRISSY. Follow up with your primary care taker for mnanagement of diabetes. Stand Alone Forms: Work/School Release Sign Out Sign Out Data: Patient Sign Out occurred on 09/28/21 at 06:48. Patient's care was discussed, and care was transferred from to Roberto Carlos Camacho DO. Coding Level of Care Code ED Client Experience Specialist for Harley Recinos
[2021-09-28] MEDS: ketorolac 30 mg/mL INJ IM (05:48)
--- NOTE | 2021-09-28 06:22 | CTR_ITS ---
PROCEDURE INFORMATION: Exam: CT Neck With Contrast Exam date and time: 09/28/2021 6:55 AM Age: 31 years old Clinical indication: Throat pain; Patient HX: Sore in RT side of mouth; Additional info: R lower dental pain, trismus, ? deep infection TECHNIQUE: Imaging protocol: Computed tomography images of the neck with contrast. Radiation optimization: All CT scans at this facility use at least one of these dose optimization techniques: automated exposure control; mA and/or kV adjustment per patient size (includes targeted exams where dose is matched to clinical indication); or iterative reconstruction. Contrast material: OMNI 350; Contrast volume: 75 ml; Contrast route: INTRAVENOUS (IV); COMPARISON: CTA Chest-Pulmonary Emb [id number] 03/19/2019 6:01 AM RADIATION DOSE METRICS: Total DLP (mGy-cm): 476.27 FINDINGS: Paranasal sinuses: Mucosal retention cysts in the left ethmoid air cells and left maxillary sinus. Pharynx: Unremarkable. No significant tonsillar enlargement. Larynx: Unremarkable. Epiglottis is normal. Prevertebral and retropharyngeal spaces: Unremarkable. Parotid and submandibular glands: Normal. Glands are normal in size. Thyroid: Normal. No enlarged or calcified nodules. Lymph nodes: Unremarkable. No lymphadenopathy. Trachea: Visualized trachea is unremarkable. Lungs: Unremarkable as visualized. Bones/joints: Unremarkable. No acute fracture. Soft tissues: A linear metallic density is seen within the subcutaneous soft tissues overlying the right anterior mandible. This extends to the skin surface. CT/CT neck w con* [id number] IMPRESSION: No acute findings.
[2021-09-28] MEDS: iohexol 350 mg/mL 100 mL Btl IV (06:56)
== END 2021-09-28 08:15 | disposition home or self-care (01) ==
PROVIDERS: Emergency Provider Family Medicine
DX: K02.9 Dental caries, unspecified (principal); F17.200 Nicotine dependence, unspecified, uncomplicated
CPT/HCPCS: 70491; 96372; 99283; J1885; Q9967

== ENCOUNTER 2022-03-11 09:05 | Emergency (ER) | payer SELFPAY ==
[2022-03-11 09:14] VITALS: BP 156/95; PULSE 95; RESP 18; TEMP 36.3; O2SAT 95
--- NOTE | 2022-03-11 09:28 | ED_ITS ---
HPI - General Adult General: Chief complaint: General Medical Stated complaint: numbness in right arm Time Seen by Provider: 03/11/22 09:20 History of Present Illness: 32-year-old female presents with complaints of right lateral neck pain, posterior shoulder pain and arm pain. She complains of numbness in her right arm. Patient reports that its been going on for about 5 days. That it started after she was getting in and out of of a truck having to use her arm a lot to get in and out. She has no injury to the area. She has no vertebral tenderness or pain. Associated symptoms: Deny chest pain, dyspnea, headache(s), nausea, rash, palpitations or vomiting Review of Systems Const: Denies: fever(s) or chills Card: Denies: chest pain or palpitations Resp: Denies: dyspnea or productive cough GI: Denies: abdominal pain, nausea or vomiting Musc: Reports: other (Please see HPI) Skin/Breast: Denies: rash or erythema Neuro: Denies: headache(s) or dizziness PFSH ED PFSH: Medical History Diabetes Surgical History No significant past surgical history Social History Smoking and tobacco status: current every day smoker Female Reproductive History: Date of last menstrual period: 02/15/22 Physical Exam Const: COMMON NORMALS: patient oriented x3 NUTRITIONAL APPEARANCE: obese morbidly obese HENMT: COMMON NORMALS: normocephalic and hearing grossly normal bilaterally HEAD & SCALP: normocephalic Neck/C-Spine: CERVICAL SPINE: Yes cervical ROM normal, No pain with cervical ROM, No Cervical spine tenderness and Yes Trapezius muscle tenderness Resp: EFFORT & INSPECTION: Yes able to speak in complete sentences and Yes symmetric chest movement Cardio: COMMON NORMALS: regular rate and regular rhythm RATE: regular rate RHYTHM: regular rhythm Extremity: OTHER: Patient's symptoms are completely reproducible with Abduction of right arm with rotation. Consistent with likely muscle spasm versus impingement due to spasm. Neuro: COMMON NORMALS: patient oriented x3, moves all extremities, no focal motor deficits and no sensory deficits noted Psych: COMMON NORMALS: mental status grossly normal and speech normal SPEECH: Yes normal speech Skin: COMMON NORMALS: no rashes or lesions noted GENERAL SKIN EXAM: no rashes or lesions noted Course Vital Signs: Vital signs: Vital Signs Temperature 97.3 F L 03/11/22 09:14 Pulse Rate 95 03/11/22 09:14 Respiratory Rate 18 03/11/22 09:14 Blood Pressure 156/95 03/11/22 09:14 Pulse Oximetry 95 03/11/22 09:14 MDM - General Adult Medical Decision Making Patient with no acute injury and x-rays are not indicated at this time. Patient symptoms likely due to trapezius spasm with symptoms completely reproducible with abduction and rotation. Patient with good pulses. Discussed with patient that she needs to use warm moist heat to affected area. To start out with anti- inflammatory and muscle relaxant. Patient reports that she has a muscle relaxant and tried 1 it did not help patient also instructed that she may need physical therapy and encouraged gentle stretching. Patient encouraged to find a primary care provider for further outpatient evaluation Discharge Plan Discharge Patient Disposition: Home Clinical Impression: Trapezius muscle spasm, Arm paresthesia, right Condition: Stable Prescriptions: New diclofenac sodium 50 mg tablet,delayed release (DR/EC) 50 mg PO Q12H PRN (Reason: pain) Qty: 20 0RF No Action Sprintec (28) 0.25-35 mg-mcg tablet 1 tab PO DAILY Qty: 28 0RF fluoxetine 20 mg capsule 20 mg PO DAILY Qty: 30 0RF Rx Instructions: EDIE LAST FILLED ON 05/18/2019-PT STATES SHE IS STILL TAKING THIS MEDICATION cyclobenzaprine 10 mg tablet 10 mg PO TID Qty: 14 0RF diclofenac sodium 50 mg tablet,delayed release (DR/EC) 50 mg PO Q12H PRN (Reason: pain) Qty: 14 0RF amoxicillin-pot clavulanate 875-125 mg tablet 1 tab PO BID Qty: 20 0RF hydrocodone-acetaminophen 5-325 mg tablet 1 tab PO Q6H PRN (Reason: pain) Qty: 10 0RF Discharge Orders: Discharge ED (Routine); Ordered 03/11/22 Ordered By: Tong Scott Discharge Diet: Usual diet Discharge Activity: Increase activity as tolerated Patient Instructions: Cervical Strain (ED), Spasmodic Torticollis (ED), Paresthesia (ED), Opioid Safety, Pain Management Activity Restrictions/Additional Instructions: Warm moist heat 20 minutes at a time 4-5 times daily, gentle neck stretches. 4% topical lidocaine with menthol cream gel or patch use as directed on package, Voltaren/diclofenac cream use as directed on package. Please establish a primary care provider and try to follow-up within 1 week. If symptoms or not improving consider physical therapy. 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
[2022-03-11] MEDS: orphenadrine 30 mg/mL Inj 2 mL 60 MG IM (09:40)
[2022-03-11] MEDS: ketorolac 30 mg/mL INJ 15 MG IM (09:40)
[2022-03-11 09:46] VITALS: BP 163/118; PULSE 85; O2SAT 97
--- NOTE | 2022-03-11 10:29 | W.ED.GENADLT ---
HPI - General Adult General: Chief complaint: General Medical Stated complaint: numbness in right arm Time Seen by Provider: 03/11/22 09:20 [facility] ED PFSH: Medical History Diabetes Surgical History No significant past surgical history Social History Smoking and tobacco status: current every day smoker Female Reproductive History: Date of last menstrual period: 02/15/22 Course Vital Signs: Vital signs: Vital Signs Temperature 97.3 F L 03/11/22 09:14 Pulse Rate 88 03/11/22 10:41 Respiratory Rate 18 03/11/22 09:14 Blood Pressure 136/92 03/11/22 10:41 Pulse Oximetry 98 03/11/22 10:41 Oxygen Delivery Me thod 03/11/22 09:46 Discharge Plan Discharge Patient Disposition: Home Clinical Impression: Trapezius muscle spasm, Arm paresthesia, right Condition: Stable Prescriptions: New diclofenac sodium 50 mg tablet,delayed release (DR/EC) 50 mg PO Q12H PRN (Reason: pain) Qty: 20 0RF No Action Sprintec (28) 0.25-35 mg-mcg tablet 1 tab PO DAILY Qty: 28 0RF fluoxetine 20 mg capsule 20 mg PO DAILY Qty: 30 0RF Rx Instructions: EDIE LAST FILLED ON 05/18/2019-PT STATES SHE IS STILL TAKING THIS MEDICATION cyclobenzaprine 10 mg tablet 10 mg PO TID Qty: 14 0RF diclofenac sodium 50 mg tablet,delayed release (DR/EC) 50 mg PO Q12H PRN (Reason: pain) Qty: 14 0RF amoxicillin-pot clavulanate 875-125 mg tablet 1 tab PO BID Qty: 20 0RF hydrocodone-acetaminophen 5-325 mg tablet 1 tab PO Q6H PRN (Reason: pain) Qty: 10 0RF Discharge Orders: Discharge ED (Routine); Ordered 03/11/22 Ordered By: Tong Scott Discharge Diet: Usual diet Discharge Activity: Increase activity as tolerated Patient Instructions: Cervical Strain (ED), Spasmodic Torticollis (ED), Paresthesia (ED), Opioid Safety, Pain Management Activity Restrictions/Additional Instructions: Warm moist heat 20 minutes at a time 4-5 times daily, gentle neck stretches. 4% topical lidocaine with menthol cream gel or patch use as directed on package, Voltaren/diclofenac cream use as directed on package. Please establish a primary care provider and try to follow-up within 1 week. If symptoms or not improving consider physical therapy. 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
[2022-03-11 10:41] VITALS: BP 136/92; PULSE 88; O2SAT 98
== END 2022-03-11 10:40 | disposition home or self-care (01) ==
PROVIDERS: Emergency Provider Student in an Organized Health Care Education/Training Program
DX: R20.2 Paresthesia of skin (principal); M62.838 Other muscle spasm; E11.9 Type 2 diabetes mellitus without complications; F17.210 Nicotine dependence, cigarettes, uncomplicated
CPT/HCPCS: 96372; 99284; J1885; J2360

== ENCOUNTER 2022-04-22 08:13 | Emergency (ER) | payer SELFPAY ==
[2022-04-22 08:25] VITALS: BP 167/102; PULSE 104; RESP 16; TEMP 36.7; O2SAT 97
--- NOTE | 2022-04-22 08:47 | W.ED.GENADLT ---
HPI - General Adult General: Chief complaint: General Medical Stated complaint: high bg Time Seen by Provider: 04/22/22 08:30 Source: patient and family Mode of arrival: ambulatory Limitations: no limitations History of Present Illness: This patient presents to our emergency department because she is concerned about elevations in her blood sugar. She states her blood sugar yesterday was in the high 400s and today it is in the mid 500s. She states that she has had a history of type 2 diabetes but has not been on medication for some time. She states she originally was diagnosed when she was a school aged child and was on metformin for period time and then when during her teenage years that medication was stopped and then restarted later but she has not been in to see a doctor for some time. She admits to increased thirst, increased urinary frequency and some fatigue but denies chest pain shortness of breath fevers chills or other symptoms currently. No recent illness. Associated symptoms: Deny chest pain, dyspnea, headache(s), nausea, rash, palpitations or vomiting Review of Systems Const: Reports: fatigue; Denies: fever(s), chills or change in weight Eyes: Denies: change in vision ENMT: Denies: throat pain, odynophagia, nasal discharge or nasal congestion Card: Denies: chest pain, palpitations or irregular heart rhythm Resp: Denies: dyspnea, productive cough or non-productive cough GI: Reports: hematemesis; Denies: abdominal pain, nausea, vomiting or diarrhea : Reports: urinary frequency; Denies: flank pain, difficulty voiding or dysuria Musc: Denies: neck pain, back pain, extremity pain or extremity swelling Skin/Breast: Denies: rash or pruritus Neuro: Denies: headache(s), numbness in extremities or weakness in extremities Psych: Denies: anxiety Endo: Reports: polyuria, polydipsia and tired all the time [facility] ED PFSH: Medical History Diabetes Surgical History No significant past surgical history Social History Smoking and tobacco status: current every day smoker Female Reproductive History: Date of last menstrual period: 02/15/22 Physical Exam Narrative: EXAM NARRATIVE: Pleasant individual who appears to be in no acute distress, makes good eye contact, answers questions appropriately in a goal-directed fashion. Const: COMMON NORMALS: no acute distress, patient oriented x3 and alert GENERAL APPEARANCE: cooperative and comfortable NUTRITIONAL APPEARANCE: overweight ORIENTATION/CONSCIOUSNESS: Yes awake HENMT: COMMON NORMALS: normocephalic, Normal nasal mucous membranes and turbinates present, moist oral mucous membranes and oropharynx normal HEAD & SCALP: normocephalic NOSE: Normal nasal mucous membranes and turbinates present Eye: COMMON NORMALS: Equal, round and reactive pupils present, EOMs intact bilaterally and conjunctivae normal CONJUNCTIVA: Yes conjunctivae normal PUPIL: Yes Equal, round and reactive pupils present Neck/C-Spine: COMMON NORMALS: full ROM, no lymphadenopathy and Thyroid normal THYROID: Thyroid normal Chest: COMMONS NORMALS: normal inspection of the chest Resp: COMMON NORMALS: normal respiratory effort, No retractions, No use of accessory muscles and clear to auscultation bilaterally AUSCULTATION: clear to auscultation bilaterally Cardio: COMMON NORMALS: regular rate, regular rhythm, S2 normal heart sound present, No murmurs present (Cardio) and Peripheral pulses 2+ throughout RATE: regular rate RHYTHM: regular rhythm HEART SOUNDS: S2 normal heart sound present PERIPHERAL PULSES: Peripheral pulses 2+ throughout GI: COMMON NORMALS: Normal to inspection, nondistended, normoactive bowel sounds present, Soft to palpation and non-tender PALPATION: Yes Soft to palpation Back/Pelvis: COMMON NORMALS: thoracic and lumbar spine normal to inspection, no thoracic nor lumbar tenderness, thoraco-lumbar ROM normal and straight leg raise negative bilaterally Extremity: COMMON NORMALS: normal to inspection, full ROM, capillary refill normal, no calf tenderness and no pedal edema Neuro: COMMON NORMALS: patient oriented x3, moves all extremities, no focal motor deficits and no sensory deficits noted SENSORIUM/ORIENTATION: Yes alert Psych: COMMON NORMALS: mental status grossly normal Skin: COMMON NORMALS: no rashes or lesions noted, turgor normal and no jaundice GENERAL SKIN EXAM: no rashes or lesions noted and turgor normal Course Reevaluation(s): Reevaluation #1: Patient remains alert. She has no new or focal findings on repeat examination. Laboratories are reassuring and that she does not have a significant acidosis or volume depletion. Plan will be to prescribe represcribe her metformin. She has a glucometer at home. She is arranging follow-up. She is accompanied by her spouse who is of supportive of her condition and plan for self-care. Time: 11:27 Vital Signs: Vital signs: Vital Signs Temperature 98.1 F 04/22/22 08:25 Pulse Rate 104 H 04/22/22 08:25 Respiratory Rate 16 04/22/22 08:25 Blood Pressure 130/111 04/22/22 09:54 Pulse Oximetry 97 04/22/22 08:25 Oxygen Delivery Me thod 04/22/22 08:25 MDM - General Adult Medical Decision Making Patient with a known history of [id number] type 2 diabetes who is not been taking any oral hypoglycemic agents for some time who has had a increase in her serum glucose over the past weeks. No signs of infection at this time and no other findings of concern that there would necessitate continued observation or admission such as hyperosmolar state, acidosis etc. She was hydrated started on metformin and will be continued on metformin as an outpatient for outpatient follow-up with return precautions. Stable at this time. Medical Records I reviewed the patient's medical records. Lab Data I reviewed the patient's lab results. 04/22/22 09:10 04/22/22 09:10 Laboratory Results WBC 7.7 10^3/uL (4.0-10.0) 04/22/22 09:10 RBC 5.14 10^6/uL (4.1-5.3) 04/22/22 09:10 Hgb 14.8 g/dL (11.5-15.3) 04/22/22 09:10 Hct 44.9 % (37.0-47.0) 04/22/22 09:10 MCV 87.4 fl (81-99) 04/22/22 09:10 MCH 28.8 pg (28.0-34.0) 04/22/22 09:10 MCHC 33.0 g/dL (30.0-36.0) 04/22/22 09:10 RDW 12.6 % (12.1-15.1) 04/22/22 09:10 Plt Count 300 10^3/cmm (130-400) 04/22/22 09:10 MPV 10.1 fL (7.4-10.4) 04/22/22 09:10 Neut % (Auto) 59.1 % 04/22/22 09:10 Lymph % (Auto) 31.4 % 04/22/22 09:10 [place] % (Auto) 6.1 % 04/22/22 09:10 Eos % (Auto) 2.6 % 04/22/22 09:10 Baso % (Auto) 0.5 % 04/22/22 09:10 Neut # (Auto) 4.56 10^3/uL (1.8-7.7) 04/22/22 09:10 Lymph # (Auto) 2.4 10^3/uL (0.8-4.8) 04/22/22 09:10 [place] # (Auto) 0.5 10^3/uL (0.2-0.9) 04/22/22 09:10 Eos # (Auto) 0.2 10^3/uL (0.0-0.8) 04/22/22 09:10 Baso # (Auto) 0.0 10^3/uL (0.0-0.1) 04/22/22 09:10 Nucleated RBC % (auto) 0 % 04/22/22 09:10 Nucleated RBCs # 0.0 /100WBC 04/22/22 09:10 Sodium 131 mmol/L (136-145) L 04/22/22 09:10 Potassium 4.3 mmol/L (3.5-5.1) 04/22/22 09:10 Chloride 100 mmol/L (98-107) 04/22/22 09:10 Carbon Dioxide 21 mmol/L (22-29) L 04/22/22 09:10 Anion Gap 14.3 (5-19) 04/22/22 09:10 BUN 12 mg/dL (6-20) 04/22/22 09:10 Creatinine 0.5 mg/dL (0.5-0.9) 04/22/22 09:10 GFR Calculation 144.9 mL/min (90-130) H 04/22/22 09:10 Glucose 375 mg/dL (65-115) H 04/22/22 09:10 POC Glucose 368 mg/dL (70-110) H 04/22/22 09:09 Calculated Osmolality 287 mOsm/kg (285-295) 04/22/22 09:10 Calcium 9.5 mg/dL (8.5-10.5) 04/22/22 09:10 Total Bilirubin 0.3 mg/dL (0.15-1.2) 04/22/22 09:10 AST 16 U/L (0-32) 04/22/22 09:10 ALT 20 U/L (0-33) 04/22/22 09:10 Alkaline Phosphatase 104 U/L (35-105) 04/22/22 09:10 Total Protein 6.7 g/dL (6.6-8.7) 04/22/22 09:10 Albumin 3.7 g/dL (3.5-5.2) 04/22/22 09:10 Globulin 3.0 g/dL (1.3-4.6) 04/22/22 09:10 HCG, Qual Negative (Negative) 04/22/22 09:22 Urine Color Yellow (Yellow) 04/22/22 09:22 Urine Appearance Clear (CLEAR) 04/22/22 09:22 Urine pH 5 (5-7) 04/22/22 09:22 Ur Specific [place] 1.010 (1.005-1.030) 04/22/22 09:22 Urine Protein Neg (Negative) 04/22/22 09:22 Urine Glucose (UA) 4+ (Normal) H 04/22/22 09:22 Urine Ketones Negative (Negative) 04/22/22 09:22 Urine Blood Neg (Negative) 04/22/22 09:22 Urine Nitrate Negative (Negative) 04/22/22 09:22 Urine Bilirubin Neg (Negative) 04/22/22 09:22 Urine Urobilinogen Norm mg/dL (Negative) 04/22/22 09:22 Ur Leukocyte Esterase Negative (Negative) 04/22/22 09:22 Serum Ketones Negative (Negative) 04/22/22 09:10 Discharge Plan Discharge Patient Disposition: Home Clinical Impression: Diabetes mellitus, Hyperglycemia Condition: Stable Prescriptions: New metformin 500 mg tablet 500 mg PO BID Qty: 60 1RF No Action Sprintec (28) 0.25-35 mg-mcg tablet 1 tab PO DAILY Qty: 28 0RF fluoxetine 20 mg capsule 20 mg PO DAILY Qty: 30 0RF Rx Instructions: EDIE LAST FILLED ON 05/18/2019-PT STATES SHE IS STILL TAKING THIS MEDICATION cyclobenzaprine 10 mg tablet 10 mg PO TID Qty: 14 0RF diclofenac sodium 50 mg tablet,delayed release (DR/EC) 50 mg PO Q12H PRN (Reason: pain) Qty: 14 0RF amoxicillin-pot clavulanate 875-125 mg tablet 1 tab PO BID Qty: 20 0RF hydrocodone-acetaminophen 5-325 mg tablet 1 tab PO Q6H PRN (Reason: pain) Qty: 10 0RF diclofenac sodium 50 mg tablet,delayed release (DR/EC) 50 mg PO Q12H PRN (Reason: pain) Qty: 20 0RF Discharge Orders: Discharge ED (Routine); Ordered 04/22/22 Ordered By: Bhupinder Tucker Discharge Diet: Diabetic Discharge Activity: Increase activity as tolerated Patient Instructions: Opioid Safety, Pain Management Activity Restrictions/Additional Instructions: As we discussed we have evaluated you in the emergency department and restarted your metformin at 500 mg twice daily. It is important that you continue to monitor your blood sugars on an twice daily basis and record those numbers for your primary care follow-up. We have provided prescriptions to last you until you can see a primary care doctor to continue and or adjust her medications as needed. If you develop fevers, vomiting, inability take your medicine, elevated blood sugars past 500 mg percent or any other concerns return to this or the nearest emergency department. 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
[2022-04-22 09:14] LABS: Glucose Point of Care 368 mg/dL (70-110)
[2022-04-22 09:32] LABS: Basophils % 0.5 %; Eosinophils # 0.2 10^3/uL (0.0-0.8); Eosinophils % 2.6 %; Hematocrit 44.9 % (37.0-47.0); Hemoglobin 14.8 g/dL (11.5-15.3); Lymphocytes # 2.4 10^3/uL (0.8-4.8); Lymphocytes % 31.4 %; Mean Corpuscular Hemoglobin 28.8 pg (28.0-34.0); Mean Corpuscular Volume 87.4 fl (81-99); Mean Platelet Volume 10.1 fL (7.4-10.4); Monocytes # 0.5 10^3/uL (0.2-0.9); Monocytes % 6.1 %; Neutrophils # 4.56 10^3/uL (1.8-7.7); Neutrophils % 59.1 %; Nucleated Red Blood Cells % 0 %; Platelet Count 300 10^3/cmm (130-400); Red Blood Count 5.14 10^6/uL (4.1-5.3); Red Cell Distribution Width 12.6 % (12.1-15.1); White Blood Count 7.7 10^3/uL (4.0-10.0)
[2022-04-22 09:37] LABS: HCG Qualitative Urine. Negative (Negative)
[2022-04-22] MEDS: sodium chloride 0.9% 1,000 ML 999 ML IV (09:41)
[2022-04-22 09:48] LABS: Add Urine Microscopic? NO; Charge for UA Resulting for Rev
[2022-04-22 09:52] LABS: Bilirubin Urine Neg (Negative); Blood Urine Neg (Negative); Glucose Urine UA 4+ (Normal); Ketones Urine Negative (Negative); Leukocyte Esterase Urine Negative (Negative); Nitrate Urine Negative (Negative); Protein Urine Neg (Negative); Urine Appearance Clear (CLEAR); Urine Color Yellow (Yellow); Urobilinogen Urine Norm (Negative); pH Urine 5 (5-7)
[2022-04-22 09:54] VITALS: BP 130/111
[2022-04-22 10:01] LABS: Ketone (Acetest) Serum Negative (Negative)
[2022-04-22 10:02] LABS: Alanine Aminotransferase 20 U/L (0-33); Albumin Level 3.7 g/dL (3.5-5.2); Alkaline Phosphatase 104 U/L (35-105); Anion Gap 14.3 (5-19); Aspartate Amino Transferase 16 U/L (0-32); Blood Urea Nitrogen 12 mg/dL (6-20); Calcium 9.5 mg/dL (8.5-10.5); Carbon Dioxide 21 mmol/L (22-29); Chloride 100 mmol/L (98-107); Glomerular Filtration Rate 144.9 mL/min (90-130); Glucose 375 mg/dL (65-115); Osmolality Calculated 287 mOsm/kg (285-295); Potassium 4.3 mmol/L (3.5-5.1); Sodium 131 mmol/L (136-145); Total Bilirubin 0.3 mg/dL (0.15-1.2); Total Protein 6.7 g/dL (6.6-8.7)
[2022-04-22] MEDS: metformin 500 mg Tablet PO (10:09)
[2022-04-22] MEDS: acetaminophen 500 mg Tablet 1000 MG PO (10:21)
== END 2022-04-22 11:42 | disposition home or self-care (01) ==
PROVIDERS: Emergency Provider Emergency Medicine
DX: E11.65 Type 2 diabetes mellitus with hyperglycemia (principal); F17.210 Nicotine dependence, cigarettes, uncomplicated
CPT/HCPCS: 36416; 80053; 81003; 81025; 82009; 82962; 85025; 99284; J7030

== ENCOUNTER 2022-08-03 20:45 | Emergency (ER) | payer OTHER, SELFPAY ==
[2022-08-03 20:55] VITALS: BP 148/94; PULSE 92; RESP 16; TEMP 36.9; O2SAT 97; BMI 49.9
[2022-08-03 22:26] LABS: Basophils # 0.1 10^3/uL (0.0-0.1); Basophils % 0.5 %; Eosinophils # 0.2 10^3/uL (0.0-0.8); Eosinophils % 2.2 %; Hematocrit 40.7 % (37.0-47.0); Hemoglobin 13.5 g/dL (11.5-15.3); Lymphocytes # 3.3 10^3/uL (0.8-4.8); Lymphocytes % 32.9 %; Mean Corpuscular HGB Conc 33.2 g/dL (30.0-36.0); Mean Corpuscular Hemoglobin 29.3 pg (28.0-34.0); Mean Corpuscular Volume 88.5 fl (81-99); Mean Platelet Volume 9.8 fL (7.4-10.4); Monocytes # 0.7 10^3/uL (0.2-0.9); Neutrophils # 5.68 10^3/uL (1.8-7.7); Neutrophils % 57.1 %; Nucleated Red Blood Cells % 0 %; Platelet Count 316 10^3/cmm (130-400); Red Cell Distribution Width 12.9 % (12.1-15.1)
[2022-08-03 22:39] LABS: Alanine Aminotransferase 18 U/L (0-33); Albumin Level 3.8 g/dL (3.5-5.2); Alkaline Phosphatase 68 U/L (35-105); Anion Gap 15.8 (5-19); Aspartate Amino Transferase 10 U/L (0-32); Blood Urea Nitrogen 14 mg/dL (6-20); Calcium 9.2 mg/dL (8.5-10.5); Carbon Dioxide 23 mmol/L (22-29); Chloride 100 mmol/L (98-107); Globulin 2.8 g/dL (1.3-4.6); Glomerular Filtration Rate 117.4 mL/min (90-130); Glucose 253 mg/dL (65-115); Osmolality Calculated 289 mOsm/kg (285-295); Potassium 3.8 mmol/L (3.5-5.1); Sodium 135 mmol/L (136-145); Total Bilirubin 0.2 mg/dL (0.15-1.2); Total Protein 6.6 g/dL (6.6-8.7)
[2022-08-03 23:03] LABS: HIV 1 & 2 Antibody Non-Reactive (Non-Reactiv); HIV 1 & 2 Antigen Non-Reactive (Non-Reactiv)
[2022-08-03 23:12] LABS: Hepatitis A Antibody IgM Non-Reactive (Nonreactive); Hepatitis B Core AB, Total Non-Reactive (Nonreactive); Hepatitis B Surface AB 62.3 (11.5-1000); Hepatitis B Surface Antigen Non-Reactive (Nonreactive); Hepatitis C Virus Antibody Non-Reactive (Nonreactive)
--- NOTE | 2022-08-03 23:17 | ED_ITS ---
HPI - Skin/Abscess/Foreign Bdy General: Chief complaint: Needlestick/Injury/Exposure Stated complaint: needle stick Time Seen by Provider: 08/03/22 20:57 History of Present Illness: Patient is a 32-year-old female comes to the ED with accidental needlestick injury. 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 She went to close the cap on the needle excellently poked her right index finger. Denies any other injury. Denies any other symptoms. Associated symptoms: Deny chills, fever(s), nausea or vomiting Review of Systems Const: Denies: fever(s), chills or fatigue Eyes: Denies: change in vision or eye discomfort ENMT: Denies: throat pain, odynophagia, nasal discharge or nasal congestion Card: Denies: chest pain, palpitations, edema, swelling of feet/ankles, dyspnea on exertion or orthopnea Resp: Denies: dyspnea, productive cough or non-productive cough GI: Denies: abdominal pain, nausea, vomiting, diarrhea, constipation or hematochezia : Denies: flank pain, dysuria or hematuria Musc: Denies: neck pain, back pain or extremity swelling Skin/Breast: Reports: new lesions (Small puncture wound to right index finger); Denies: rash Neuro: Denies: headache(s), numbness in extremities or weakness in extremities PFS ED PFSH: Medical History Diabetes Surgical History No significant past surgical history Social History Smoking and tobacco status: current every day smoker Physical Exam Const: COMMON NORMALS: patient oriented x3 HENMT: COMMON NORMALS: normocephalic HEAD & SCALP: normocephalic MOUTH: Normal oral and palatal mucosa present THROAT: posterior oropharynx normal and uvula midline Neck/C-Spine: COMMON NORMALS: supple GENERAL: Yes normal visual inspection Resp: COMMON NORMALS: normal respiratory effort, No retractions, No use of accessory muscles and clear to auscultation bilaterally AUSCULTATION: clear to auscultation bilaterally Cardio: COMMON NORMALS: regular rate, regular rhythm, S1 normal heart sound present, S2 normal heart sound present, No gallops present (Cardio), No clicks present (Cardio), No murmurs present (Cardio) and Peripheral pulses 2+ throughout RATE: regular rate RHYTHM: regular rhythm HEART SOUNDS: S1 normal heart sound present and S2 normal heart sound present PERIPHERAL PULSES: Peripheral pulses 2+ throughout GI: COMMON NORMALS: Normal to inspection, nondistended, normoactive bowel sounds present, Soft to palpation, non-tender and no masses PALPATION: Yes Soft to palpation : COMMON NORMALS: Yes no CVA tenderness BLADDER/KIDNEY EXAM: Yes no CVA tenderness Back/Pelvis: COMMON NORMALS: no CVA tenderness Extremity: COMMON NORMALS: normal to inspection Neuro: COMMON NORMALS: patient oriented x3 GAIT: Yes Normal gait present Skin: GENERAL SKIN EXAM: dry skin Course Vital Signs: Vital signs: Vital Signs Temperature 98.4 F 08/03/22 20:55 Pulse Rate 92 08/03/22 20:55 Respiratory Rate 16 08/03/22 20:55 Blood Pressure 148/94 08/03/22 20:55 Pulse Oximetry 97 08/03/22 20:55 Oxygen Delivery Me thod Room Air 08/03/22 20:55 MDM - Skin/Abscess/Foreign Bdy Medicial Decision Making Patient is a 32-year-old female comes to the ED with accidental needlestick injury. 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 She went to close the cap on the needle excellently poked her right index finger. Denies any other injury. Denies any other symptoms. Vitals are stable and patient appears nontoxic and in no acute distress or pain. Labs are all unremarkable hepatitis and HIV or negative. Patient was stable for discharge home and diagnosed with accidental needlestick injury. She was told to follow-up with her PCP and have repeat labs done in the next 4 to 6 weeks. Return to ED precautions given. Patient understood and agreed with plan. Lab Data I reviewed the patient's lab results. 08/03/22 22:10 08/03/22 22:10 Laboratory Results WBC 10.0 10^3/uL (4.0-10.0) 08/03/22 22:10 RBC 4.60 10^6/uL (4.1-5.3) 08/03/22 22:10 Hgb 13.5 g/dL (11.5-15.3) 08/03/22 22:10 Hct 40.7 % (37.0-47.0) 08/03/22 22:10 MCV 88.5 fl (81-99) 08/03/22 22:10 MCH 29.3 pg (28.0-34.0) 08/03/22 22:10 MCHC 33.2 g/dL (30.0-36.0) 08/03/22 22:10 RDW 12.9 % (12.1-15.1) 08/03/22 22:10 Plt Count 316 10^3/cmm (130-400) 08/03/22 22:10 MPV 9.8 fL (7.4-10.4) 08/03/22 22:10 Neut % (Auto) 57.1 % 08/03/22 22:10 Lymph % (Auto) 32.9 % 08/03/22 22:10 [place] % (Auto) 7.0 % 08/03/22 22:10 Eos % (Auto) 2.2 % 08/03/22 22:10 Baso % (Auto) 0.5 % 08/03/22 22:10 Neut # (Auto) 5.68 10^3/uL (1.8-7.7) 08/03/22 22:10 Lymph # (Auto) 3.3 10^3/uL (0.8-4.8) 08/03/22 22:10 [place] # (Auto) 0.7 10^3/uL (0.2-0.9) 08/03/22 22:10 Eos # (Auto) 0.2 10^3/uL (0.0-0.8) 08/03/22 22:10 Baso # (Auto) 0.1 10^3/uL (0.0-0.1) 08/03/22 22:10 Nucleated RBC % (auto) 0 % 08/03/22 22:10 Nucleated RBCs # 0.0 /100WBC 08/03/22 22:10 Sodium 135 mmol/L (136-145) L 08/03/22 22:10 Potassium 3.8 mmol/L (3.5-5.1) 08/03/22 22:10 Chloride 100 mmol/L (98-107) 08/03/22 22:10 Carbon Dioxide 23 mmol/L (22-29) 08/03/22 22:10 Anion Gap 15.8 (5-19) 08/03/22 22:10 BUN 14 mg/dL (6-20) 08/03/22 22:10 Creatinine 0.6 mg/dL (0.5-0.9) 08/03/22 22:10 GFR Calculation 117.4 mL/min (90-130) 08/03/22 22:10 Glucose 253 mg/dL (65-115) H 08/03/22 22:10 Calculated Osmolality 289 mOsm/kg (285-295) 08/03/22 22:10 Calcium 9.2 mg/dL (8.5-10.5) 08/03/22 22:10 Total Bilirubin 0.2 mg/dL (0.15-1.2) 08/03/22 22:10 AST 10 U/L (0-32) 08/03/22 22:10 ALT 18 U/L (0-33) 08/03/22 22:10 Alkaline Phosphatase 68 U/L (35-105) 08/03/22 22:10 Total Protein 6.6 g/dL (6.6-8.7) 08/03/22 22:10 Albumin 3.8 g/dL (3.5-5.2) 08/03/22 22:10 Globulin 2.8 g/dL (1.3-4.6) 08/03/22 22:10 Hepatitis A IgM Ab Non-reactive (Nonreactive) 08/03/22 22:10 Hep Bs Antigen Non-reactive (Nonreactive) 08/03/22 22:10 Hep Bs Antibody 62.3 (11.5-1000) 08/03/22 22:10 Hep B Core Total Ab Non-reactive (Nonreactive) 08/03/22 22:10 Hepatitis C Antibody Non-reactive (Nonreactive) 08/03/22 22:10 HIV 1&2 Ab & HIV 1 Ag Non-reactive (Non-Reactiv) 08/03/22 22:10 HIV 1&2 Antibody Non-reactive (Non-Reactiv) 08/03/22 22:10 Discharge Plan Discharge Patient Disposition: Home Clinical Impression: Needle stick, hypodermic, accidental Qualifiers: Encounter type: initial encounter Qualified Code(s): W46.0XXA - Contact with hypodermic needle, initial encounter Condition: Stable Prescriptions: No Action amoxicillin 875 mg tablet 875 mg PO BID 7 Days Qty: 14 0RF prednisone 20 mg tablet 40 mg PO DAILY 5 Days Qty: 10 0RF Discharge Orders: Discharge ED (Routine); Ordered 08/03/22 Ordered By: Nicholas Dhillon Discharge Diet: Regular Discharge Activity: Increase activity as tolerated Patient Instructions: Needle Stick Injuries (ED) Activity Restrictions/Additional Instructions: Follow-up with medical provider as directed in the next 4 to 6 weeks to have repeat Laz labs done. Check CBC, CMP, hepatitis panel and HIV. Continue taking all home medications as previously prescribed. return to the ER or your medical provider if condition worsens. Please read and understand discharge instructions. Thank you for choosing [facility] for your healthcare needs today. Please realize this is an emergency room and that we are providing you with a medical screening exam and this may not be complete and all inclusive of all the testing and or work up that you may need to determine your ailment or severity of your illness. It is very important that you follow up as instructed or that you return to the Emergency Department should you have concerns or if your condition changes or worsens in any way. Coding Level of Care Code ED Portfolio Assistant for Harley Recinos
--- NOTE | 2022-08-08 15:16 | DCPLANNER ---
TCM called patient due to no primary care physician - patient declines at this time.
== END 2022-08-04 00:07 | disposition home or self-care (01) ==
PROVIDERS: Emergency Provider Physician Assistant
DX: S61.230A Puncture wound without foreign body of right index finger without damage to nail, initial encounter (principal); W46.1XXA Contact with contaminated hypodermic needle, initial encounter; Y99.0 Civilian activity done for income or pay; E11.9 Type 2 diabetes mellitus without complications; F17.210 Nicotine dependence, cigarettes, uncomplicated
CPT/HCPCS: 36415; 80053; 85025; 86705; 86706; 86709; 86803; 87340; 87806; 99283

== ENCOUNTER 2022-08-21 06:21 | Emergency (ER) | payer SELFPAY ==
[2022-08-21 06:36] VITALS: BP 124/93; PULSE 97; RESP 16; TEMP 37.1; O2SAT 96; BMI 49.8
[2022-08-21 06:41] VITALS: RESP 18
--- NOTE | 2022-08-21 06:52 | W.ED.ABDPA2 ---
HPI - Abdominal Pain General: Chief Complaint: Abdominal Pain Stated Complaint: abd pain Time Seen by Provider: 08/21/22 06:27 Source: patient Mode of arrival: ambulatory History of Present Illness: 32-year-old female who presents emergency room complaining of right lower quadrant pain rating into her back for the last several days. She has a history of ovarian cyst. She denies dysuria urgency or frequency no hematochezia melena hematemesis cough nemesis no diarrhea. She has no history of nephrolithiasis. She has been somewhat nauseated with this. She denies any hematuria. Her last menstrual period was 2 weeks ago and it was relatively normal for her. MD elicited complaint: abdominal pain Pertinent past history: none Onset (ago): day(s) Location: RLQ Quality: cramping Radiation: none Migration to: other (Back) Exacerbating factors: nothing Relieving factors: nothing Associated Symptoms: Denies anorexia, belching, bloating, change in bowel habits, change in stool character, chills, coffee ground emesis, constipation, GI cramping, diarrhea, dyspepsia, dysuria, excessive flatus, fever(s), heartburn, hematochezia, hematuria, hematemesis, fecal incontinence, loose stools, melena, nausea, poor appetite, syncope and vomiting Review of Systems Const: Denies: fever(s), chills, fatigue or malaise ENMT: Denies: throat pain, ear or mastoid pain, nasal discharge or nasal congestion Card: Denies: chest pain, palpitations, irregular heart rhythm, edema or syncope Resp: Denies: dyspnea, productive cough or non-productive cough GI: Reports: abdominal pain; Denies: nausea, vomiting, hematemesis, coffee ground emesis, heartburn, diarrhea, constipation, bloating, GI cramping, belching, excessive flatus, fecal incontinence, change in bowel habits, change in stool character, hematochezia or melena : Denies: flank pain, dysuria, urinary frequency, urinary urgency or hematuria Skin/Breast: Denies: rash or pruritus PFSH ED PFSH: Medical History Diabetes Surgical History No significant past surgical history Social History Smoking and tobacco status: current every day smoker Physical Exam Const: COMMON NORMALS: no acute distress GENERAL APPEARANCE: cooperative and comfortable ORIENTATION/CONSCIOUSNESS: Yes awake, Yes oriented to person, Yes oriented to place and Yes oriented to time HENMT: COMMON NORMALS: normocephalic, atraumatic and hearing grossly normal bilaterally HEAD & SCALP: normocephalic and atraumatic Resp: COMMON NORMALS: normal respiratory effort, No retractions, No use of accessory muscles and clear to auscultation bilaterally AUSCULTATION: clear to auscultation bilaterally Cardio: COMMON NORMALS: regular rate, regular rhythm and No murmurs present (Cardio) RATE: regular rate RHYTHM: regular rhythm GI: COMMON NORMALS: No hepatosplenomegaly present AUSCULTATION: Yes normoactive bowel sounds PALPATION: Yes Tenderness to palpation present (GI) Details: RLQ, No Guarding due to palpation present (GI) and Yes No hepatosplenomegaly present : COMMON NORMALS: Yes no CVA tenderness BLADDER/KIDNEY EXAM: Yes no CVA tenderness Back/Pelvis: COMMON NORMALS: no CVA tenderness Extremity: COMMON NORMALS: normal to inspection, capillary refill normal, no clubbing, cyanosis or edema, no calf tenderness and no pedal edema Neuro: SENSORIUM/ORIENTATION: Yes oriented to person, Yes oriented to place and Yes oriented to time Skin: COMMON NORMALS: no rashes or lesions noted GENERAL SKIN EXAM: no rashes or lesions noted Course Vital Signs: Vital signs: Vital Signs Temperature 98.7 F 08/21/22 06:36 Pulse Rate 70 08/21/22 09:23 Respiratory Rate 18 08/21/22 09:23 Blood Pressure 124/93 08/21/22 06:36 Pulse Oximetry 96 08/21/22 06:36 Oxygen Delivery Me thod Room Air 08/21/22 06:36 MDM - Abdominal Pain Medical Decision Making No leukocytosis transvaginal ultrasound does not show any significant abnormality no ovarian mass. She has some tenderness in right lower quadrant but there is not really any guarding or rebound it is very vague and not focal to McBurney's point at this time. UA is positive. Discharge patient home. Started on Bactrim DS given a single dose of Rocephin here. If has any worsening or changes symptoms return to the emergency room. Also gave Pyridium to use as needed. Repeat abdominal exam benign prior to discharge Medical Records I reviewed the patient's medical records. Lab Data I reviewed the patient's lab results. 08/21/22 06:46 08/21/22 06:46 Labs/Radiology: Radiology Impressions Transvaginal US 08/21/22 07:40 IMPRESSION: Normal transvaginal pelvic ultrasound. Laboratory Results WBC 8.2 10^3/uL (4.0-10.0) 08/21/22 06:46 RBC 4.78 10^6/uL (4.1-5.3) 08/21/22 06:46 Hgb 13.8 g/dL (11.5-15.3) 08/21/22 06:46 Hct 42.2 % (37.0-47.0) 08/21/22 06:46 MCV 88.3 fl (81-99) 08/21/22 06:46 MCH 28.9 pg (28.0-34.0) 08/21/22 06:46 MCHC 32.7 g/dL (30.0-36.0) 08/21/22 06:46 RDW 12.5 % (12.1-15.1) 08/21/22 06:46 Plt Count 270 10^3/cmm (130-400) 08/21/22 06:46 MPV 10.1 fL (7.4-10.4) 08/21/22 06:46 Neut % (Auto) 61.9 % 08/21/22 06:46 Lymph % (Auto) 27.4 % 08/21/22 06:46 [place] % (Auto) 7.4 % 08/21/22 06:46 Eos % (Auto) 2.4 % 08/21/22 06:46 Baso % (Auto) 0.5 % 08/21/22 06:46 Neut # (Auto) 5.09 10^3/uL (1.8-7.7) 08/21/22 06:46 Lymph # (Auto) 2.3 10^3/uL (0.8-4.8) 08/21/22 06:46 [place] # (Auto) 0.6 10^3/uL (0.2-0.9) 08/21/22 06:46 Eos # (Auto) 0.2 10^3/uL (0.0-0.8) 08/21/22 06:46 Baso # (Auto) 0.0 10^3/uL (0.0-0.1) 08/21/22 06:46 Nucleated RBC % (auto) 0 % 08/21/22 06:46 Nucleated RBCs # 0.0 /100WBC 08/21/22 06:46 Sodium 135 mmol/L (136-145) L 08/21/22 06:46 Potassium 4.2 mmol/L (3.5-5.1) 08/21/22 06:46 Chloride 102 mmol/L (98-107) 08/21/22 06:46 Carbon Dioxide 22 mmol/L (22-29) 08/21/22 06:46 Anion Gap 15.2 (5-19) 08/21/22 06:46 BUN 14 mg/dL (6-20) 08/21/22 06:46 Creatinine 0.5 mg/dL (0.5-0.9) 08/21/22 06:46 GFR Calculation 144.9 mL/min (90-130) H 08/21/22 06:46 Glucose 285 mg/dL (65-115) H 08/21/22 06:46 Calculated Osmolality 291 mOsm/kg (285-295) 08/21/22 06:46 Calcium 8.7 mg/dL (8.5-10.5) 08/21/22 06:46 Total Bilirubin 0.3 mg/dL (0.15-1.2) 08/21/22 06:46 AST 11 U/L (0-32) 08/21/22 06:46 ALT 19 U/L (0-33) 08/21/22 06:46 Alkaline Phosphatase 88 U/L (35-105) 08/21/22 06:46 Total Protein 6.3 g/dL (6.6-8.7) L 08/21/22 06:46 Albumin 3.7 g/dL (3.5-5.2) 08/21/22 06:46 Globulin 2.6 g/dL (1.3-4.6) 08/21/22 06:46 Lipase 50 U/L (13-60) 08/21/22 06:46 HCG, Qual Negative (Negative) 08/21/22 06:46 Urine Color Yellow (Yellow) 08/21/22 07:15 Urine Appearance Cloudy (CLEAR) A 08/21/22 07:15 Urine pH 5 (5-7) 08/21/22 07:15 Ur Specific [place] 1.020 (1.005-1.030) 08/21/22 07:15 Urine Protein Neg (Negative) 08/21/22 07:15 Urine Glucose (UA) 4+ (Normal) H 08/21/22 07:15 Urine Ketones 1+ (Negative) H 08/21/22 07:15 Urine Blood 2+ (Negative) H 08/21/22 07:15 Urine Nitrate Negative (Negative) 08/21/22 07:15 Urine Bilirubin Neg (Negative) 08/21/22 07:15 Urine Urobilinogen Norm mg/dL (Negative) 08/21/22 07:15 Ur Leukocyte Esterase 2+ (Negative) H 08/21/22 07:15 Urine RBC 5-10 /hpf (0-2) H 08/21/22 07:15 Urine WBC 80-100 /hpf (0-5) H 08/21/22 07:15 Ur Squamous Epith Cells 55-80 /hpf (0-5) H 08/21/22 07:15 Amorphous Sediment Not Reportable 08/21/22 07:15 Urine Bacteria 2+ /hpf (NONE) H 08/21/22 07:15 Urine Mucus Trace /hpf 08/21/22 07:15 Discharge Plan Discharge Patient Disposition: Home Clinical Impression: Cystitis Condition: Stable Prescriptions: New Bactrim DS 800-160 mg tablet 1 tab PO BID 7 Days Qty: 14 0RF Pyridium 200 mg tablet 200 mg PO Q8H PRN (Reason: pain) Qty: 6 0RF No Action amoxicillin 875 mg tablet 875 mg PO BID 7 Days Qty: 14 0RF prednisone 20 mg tablet 40 mg PO DAILY 5 Days Qty: 10 0RF Discharge Orders: Discharge ED (Routine); Ordered 08/21/22 Ordered By: Roberto Carlos Camacho Discharge Diet: Usual diet Discharge Activity: Resume usual activity Patient Instructions: Opioid Safety, Pain Management Activity Restrictions/Additional Instructions: You were seen today for cystitis. (Bladder infection). You are given initial dose of IM antibiotic here and discharged home with oral antibiotics for 7 days. You are also given bladder anesthetic. Follow-up with your primary care doctor if its not improving. Pelvic ultrasound done in the emergency room did not show any significant pathology. Stand Alone Forms: Work/School Release Coding Level of Care Code ED Sanforizing Machine Operator for Harley Recinos
[2022-08-21] MEDS: ondansetron 2 mg/ML SDV 2 mL 4 MG IVP (07:06)
[2022-08-21] MEDS: sodium chloride 0.9% 1,000 ML 999 ML IV (07:06)
[2022-08-21 07:08] LABS: Basophils % 0.5 %; Eosinophils # 0.2 10^3/uL (0.0-0.8); Eosinophils % 2.4 %; Hematocrit 42.2 % (37.0-47.0); Hemoglobin 13.8 g/dL (11.5-15.3); Lymphocytes # 2.3 10^3/uL (0.8-4.8); Lymphocytes % 27.4 %; Mean Corpuscular HGB Conc 32.7 g/dL (30.0-36.0); Mean Corpuscular Hemoglobin 28.9 pg (28.0-34.0); Mean Corpuscular Volume 88.3 fl (81-99); Mean Platelet Volume 10.1 fL (7.4-10.4); Monocytes # 0.6 10^3/uL (0.2-0.9); Monocytes % 7.4 %; Neutrophils # 5.09 10^3/uL (1.8-7.7); Neutrophils % 61.9 %; Nucleated Red Blood Cells % 0 %; Platelet Count 270 10^3/cmm (130-400); Red Blood Count 4.78 10^6/uL (4.1-5.3); Red Cell Distribution Width 12.5 % (12.1-15.1); White Blood Count 8.2 10^3/uL (4.0-10.0)
--- NOTE | 2022-08-21 07:10 | PC.NURSE ---
Pt report received from Frank Salcedo RN. Pt VSS and rates pain in RLQ 08/29. IV - saline locked and patent. Pt up to restroom after nurse completes assessment.
[2022-08-21 07:22] LABS: Alanine Aminotransferase 19 U/L (0-33); Albumin Level 3.7 g/dL (3.5-5.2); Alkaline Phosphatase 88 U/L (35-105); Anion Gap 15.2 (5-19); Aspartate Amino Transferase 11 U/L (0-32); Blood Urea Nitrogen 14 mg/dL (6-20); Calcium 8.7 mg/dL (8.5-10.5); Carbon Dioxide 22 mmol/L (22-29); Chloride 102 mmol/L (98-107); Globulin 2.6 g/dL (1.3-4.6); Glomerular Filtration Rate 144.9 mL/min (90-130); Glucose 285 mg/dL (65-115); Lipase 50 U/L (13-60); Osmolality Calculated 291 mOsm/kg (285-295); Potassium 4.2 mmol/L (3.5-5.1); Sodium 135 mmol/L (136-145); Total Bilirubin 0.3 mg/dL (0.15-1.2); Total Protein 6.3 g/dL (6.6-8.7)
[2022-08-21 07:25] LABS: HCG, Serum Qual Negative (Negative)
[2022-08-21 07:37] LABS: Urine Appearance Cloudy (CLEAR); Urine Color Yellow (Yellow)
[2022-08-21 07:38] LABS: Protein Urine Neg (Negative); pH Urine 5 (5-7)
[2022-08-21 07:39] LABS: Add Urine Culture? No; Add Urine Microscopic? YES; Bacteria Urine 2+ /hpf; Bilirubin Urine Neg (Negative); Blood Urine 2+ (Negative); Glucose Urine UA 4+ (Normal); Ketones Urine 1+ (Negative); Leukocyte Esterase Urine 2+ (Negative); Mucus Urine TRACE /hpf; Nitrate Urine Negative (Negative); Squamous Epithelial Cell Urine 55-80 /hpf (0-5); Urobilinogen Urine Norm (Negative); WBC Urine 80-100 /hpf (0-5)
--- NOTE | 2022-08-21 07:40 | US_ITS ---
WS: [id number] US transvaginal [id number] HISTORY: R pelvic pain COMPARISON: 12/02/2019 Uterus: 9.0 cm x 5.2 cm x 4.4 cm. Normal size anteverted uterus. No fibroid or mass. Endometrium: 1.2 cm. Normal trilaminar endometrium. Right ovary: 3.2 cm x 2.4 cm x 3.6 cm. Normal size and vascularity, no cystic or solid masses. Left ovary: 3.4 cm x 2.4 cm x 2.6 cm. Normal size and vascularity, no cystic or solid masses. Small amount of free fluid in the cul-de-sac. Physiologic amount. May be from a ruptured cyst. US/US transvaginal [id number] IMPRESSION: Normal transvaginal pelvic ultrasound.
[2022-08-21] MEDS: cefTRIAXone 1,000 MG in water for injection-sterile 2.1 ML 2.1 MG IM (09:07)
[2022-08-21 09:23] VITALS: PULSE 70; RESP 18
--- NOTE | 2022-08-24 14:30 | DCPLANNER ---
online marketing manager called patient due to no primary care physician - patient hung up on case packer.
== END 2022-08-21 09:25 | disposition home or self-care (01) ==
PROVIDERS: Emergency Provider Family Medicine
DX: N30.90 Cystitis, unspecified without hematuria (principal); E11.9 Type 2 diabetes mellitus without complications; F17.210 Nicotine dependence, cigarettes, uncomplicated
CPT/HCPCS: 76830; 80053; 81001; 83690; 84703; 85025; 96361; 96372; 96374; 99285; J0696; J2405; J7030

== ENCOUNTER → 2022-09-03 14:16 | Outpatient (BNVA) | payer SELFPAY | PROVIDERS: Visit Provider Nurse Practitioner Family | DX: R30.0 Dysuria (principal); R81 Glycosuria; B37.31 Acute candidiasis of vulva and vagina; E11.622 Type 2 diabetes mellitus with other skin ulcer; E11.9 Type 2 diabetes mellitus without complications | CPT/HCPCS: 81000; 82962 ==

== ENCOUNTER → 2022-10-30 09:00 | Outpatient (BNVA) | payer MEDICAID, SELFPAY | PROVIDERS: Visit Provider Obstetrics & Gynecology | DX: Z34.90 Encounter for supervision of normal pregnancy, unspecified, unspecified trimester (principal); E11.9 Type 2 diabetes mellitus without complications | CPT/HCPCS: 80053; 81000; 83036; 84702; 85025 ==

== ENCOUNTER 2022-11-07 09:47 | Outpatient (CLI) | payer MEDICAID, SELFPAY ==
--- NOTE | 2022-11-07 10:15 | US_ITS ---
WS: [id number] Exam: US OB transvaginal [id number] Date/Time of Exam: 11/07/2022 10:09 AM Reason For Exam: E11.9 - Type 2 diabetes mellitus without complications Viable intrauterine with single fetus noted. Essig-rump length measurements average 1.81 cm . Estimated gestational age is 8 weeks 2 days. Heart rate 167 bpm. 3.4 mm yolk sac is noted. Corpus l uteum cyst in the right ovary. Unremarkable left ovary. No adnexal mass or abnormal free fluid collec tion in the pelvis. Trace amount of fluid in the cervix. US/US OB transvaginal [id number] IMPRESSION: 1. Viable intrauterine with single fetus estimated at 8 weeks 2 days gestational age. No complications are noted.
== END 2022-11-07 09:48 | disposition home or self-care (01) ==
LOC: RAD 09:49
PROVIDERS: PCP Obstetrics & Gynecology; Visit Provider Obstetrics & Gynecology
DX: E11.9 Type 2 diabetes mellitus without complications (principal)
CPT/HCPCS: 76817

== ENCOUNTER 2022-11-16 11:06 | Emergency (ER) | payer MEDICAID, SELFPAY ==
[2022-11-16 11:15] VITALS: BP 153/96; PULSE 105; RESP 16; TEMP 36.7; O2SAT 94; BMI 51.5
--- NOTE | 2022-11-16 12:20 | W.ED.FEMALGU ---
HPI - Female Genitourinary General: Chief complaint: Vaginal Bleeding Stated complaint: 10 weeks , spotting Time Seen by Provider: 11/16/22 11:59 Source: patient Mode of arrival: ambulatory Limitations: no limitations History of Present Illness: Patient is a female at approximately 10 weeks gestation here for evaluation of vaginal spotting. She states yesterday she noticed a few faint pink spots on the toilet paper when she wiped. She states this morning she noticed the same. She has not noted any bleeding in her underwear or in the toilet. She has no abdominal pain or pelvic cramping. She states her OB is Dr. Major but she is being referred to a specialist in [place] secondary to her diabetes. MD elicited complaint: vaginal bleeding Pertinent past history: prior miscarriages and diabetes Onset (ago): day(s) (yesterday evening/this morning) Severity: mild Vaginal discharge: none Vaginal bleeding: scant Exacerbating factors: none Relieving factors: none Associated symptoms: Reports no associated symptoms; Deny abdominal pain or vaginal discharge Sexual activity: Yes Patient : Yes Related Data: : 2 Review of Systems Const: Denies: fever(s) Card: Denies: chest pain Resp: Denies: dyspnea GI: Denies: abdominal pain : Denies: flank pain, dysuria, vaginal odor, vaginal discharge or pelvic pain Musc: Denies: back pain Neuro: Denies: dizziness PFSH ED PFSH: Medical History Diabetes Surgical History No significant past surgical history Social History Smoking and tobacco status: current every day smoker Female Reproductive History: : 2 Physical Exam Const: COMMON NORMALS: no acute distress, patient oriented x3, no limitations and alert NUTRITIONAL APPEARANCE: obese morbidly obese Resp: COMMON NORMALS: normal respiratory effort and clear to auscultation bilaterally AUSCULTATION: clear to auscultation bilaterally Cardio: COMMON NORMALS: regular rate and regular rhythm RATE: regular rate RHYTHM: regular rhythm GI: COMMON NORMALS: Normal to inspection, nondistended, normoactive bowel sounds present, Soft to palpation and non-tender PALPATION: Yes Soft to palpation : COMMON NORMALS: Yes no CVA tenderness BLADDER/KIDNEY EXAM: Yes no CVA tenderness Back/Pelvis: COMMON NORMALS: no CVA tenderness Neuro: COMMON NORMALS: patient oriented x3 SENSORIUM/ORIENTATION: Yes alert Course Vital Signs: Vital signs: Vital Signs Temperature 98.1 F 11/16/22 11:15 Pulse Rate 95 11/16/22 12:31 Respiratory Rate 16 11/16/22 11:15 Blood Pressure 134/91 11/16/22 12:31 Pulse Oximetry 99 11/16/22 12:31 Oxygen Delivery Me thod Room Air 11/16/22 11:15 MDM - Female Medical Decision Making Patient is a 32-year-old female approximately 10 weeks here for complaints of some very scant pink vaginal spotting noted on tissue paper yesterday and another episode today. She is not having any pelvic pain or cramping. IUP has been confirmed on ultrasound. Vital signs are stable. Blood [place] [address]. At this time I do not see any reason for emergent US imaging. Recommend she follow up with OB as scheduled unless bleeding worsens or she begins having pelvic pain and she can either return here or contact OB for sooner appointment. Blood type is O+. Lab Data 11/16/22 12:12 11/16/22 12:12 Laboratory Results WBC 8.5 10^3/uL (4.0-10.0) 11/16/22 12:12 RBC 4.84 10^6/uL (4.1-5.3) 11/16/22 12:12 Hgb 14.4 g/dL (11.5-15.3) 11/16/22 12:12 Hct 41.9 % (37.0-47.0) 11/16/22 12:12 MCV 86.6 fl (81-99) 11/16/22 12:12 MCH 29.8 pg (28.0-34.0) 11/16/22 12:12 MCHC 34.4 g/dL (30.0-36.0) 11/16/22 12:12 RDW 12.8 % (12.1-15.1) 11/16/22 12:12 Plt Count 281 10^3/cmm (130-400) 11/16/22 12:12 MPV 10.0 fL (7.4-10.4) 11/16/22 12:12 Neut % (Auto) 64.4 % 11/16/22 12:12 Lymph % (Auto) 26.5 % 11/16/22 12:12 [place] % (Auto) 6.9 % 11/16/22 12:12 Eos % (Auto) 1.6 % 11/16/22 12:12 Baso % (Auto) 0.4 % 11/16/22 12:12 Neut # (Auto) 5.46 10^3/uL (1.8-7.7) 11/16/22 12:12 Lymph # (Auto) 2.3 10^3/uL (0.8-4.8) 11/16/22 12:12 [place] # (Auto) 0.6 10^3/uL (0.2-0.9) 11/16/22 12:12 Eos # (Auto) 0.1 10^3/uL (0.0-0.8) 11/16/22 12:12 Baso # (Auto) 0.0 10^3/uL (0.0-0.1) 11/16/22 12:12 Nucleated RBC % (auto) 0 % 11/16/22 12:12 Nucleated RBCs # 0.0 /100WBC 11/16/22 12:12 Sodium 134 mmol/L (136-145) L 11/16/22 12:12 Potassium 4.1 mmol/L (3.5-5.1) 11/16/22 12:12 Chloride 100 mmol/L (98-107) 11/16/22 12:12 Carbon Dioxide 21 mmol/L (22-29) L 11/16/22 12:12 Anion Gap 17.1 (5-19) 11/16/22 12:12 BUN 10 mg/dL (6-20) 11/16/22 12:12 Creatinine 0.6 mg/dL (0.5-0.9) 11/16/22 12:12 GFR Calculation 117.4 mL/min (90-130) 11/16/22 12:12 Glucose 219 mg/dL (65-115) H 11/16/22 12:12 Calculated Osmolality 284 mOsm/kg (285-295) L 11/16/22 12:12 Calcium 9.2 mg/dL (8.5-10.5) 11/16/22 12:12 Total Bilirubin 0.3 mg/dL (0.15-1.2) 11/16/22 12:12 AST 13 U/L (0-32) 11/16/22 12:12 ALT 16 U/L (0-33) 11/16/22 12:12 Alkaline Phosphatase 60 U/L (35-105) 11/16/22 12:12 Total Protein 6.6 g/dL (6.6-8.7) 11/16/22 12:12 Albumin 3.9 g/dL (3.5-5.2) 11/16/22 12:12 Globulin 2.7 g/dL (1.3-4.6) 11/16/22 12:12 Ser , Semi-Qnt 45760.00 mIU/mL 11/16/22 12:12 Urine Color Yellow (Yellow) 11/16/22 12:30 Urine Appearance Clear (CLEAR) 11/16/22 12:30 Urine pH 5 (5-7) 11/16/22 12:30 Ur Specific [place] 1.020 (1.005-1.030) 11/16/22 12:30 Urine Protein Neg (Negative) 11/16/22 12:30 Urine Glucose (UA) 4+ (Normal) H 11/16/22 12:30 Urine Ketones 2+ (Negative) H 11/16/22 12:30 Urine Blood 3+ (Negative) H 11/16/22 12:30 Urine Nitrate Negative (Negative) 11/16/22 12:30 Urine Bilirubin Neg (Negative) 11/16/22 12:30 Urine Urobilinogen Norm mg/dL (Negative) 11/16/22 12:30 Ur Leukocyte Esterase 1+ (Negative) H 11/16/22 12:30 Urine RBC 5-10 /hpf (0-2) H 11/16/22 12:30 Urine WBC 5-10 /hpf (0-5) H 11/16/22 12:30 Ur Squamous Epith Cells 10-15 /hpf (0-5) H 11/16/22 12:30 Amorphous Sediment Not Reportable 11/16/22 12:30 Urine Bacteria None /hpf (NONE) 11/16/22 12:30 Urine Mucus 2+ /hpf 11/16/22 12:30 Discharge Plan Discharge Patient Disposition: Home Clinical Impression: Bleeding in early Condition: Stable Prescriptions: No Action prenat.vits,bassem,[id number] Tablet 1 tab PO DAILY Discharge Orders: Discharge ED (Routine); Ordered 11/16/22 Ordered By: Lyly Rosenthal Referrals: Orlando Major MD [Primary Care Provider] - Coding Level of Care Code 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
[2022-11-16 12:25] LABS: Basophils % 0.4 %; Eosinophils # 0.1 10^3/uL (0.0-0.8); Eosinophils % 1.6 %; Hematocrit 41.9 % (37.0-47.0); Hemoglobin 14.4 g/dL (11.5-15.3); Lymphocytes # 2.3 10^3/uL (0.8-4.8); Lymphocytes % 26.5 %; Mean Corpuscular HGB Conc 34.4 g/dL (30.0-36.0); Mean Corpuscular Hemoglobin 29.8 pg (28.0-34.0); Mean Corpuscular Volume 86.6 fl (81-99); Monocytes # 0.6 10^3/uL (0.2-0.9); Monocytes % 6.9 %; Neutrophils # 5.46 10^3/uL (1.8-7.7); Neutrophils % 64.4 %; Nucleated Red Blood Cells % 0 %; Platelet Count 281 10^3/cmm (130-400); Red Blood Count 4.84 10^6/uL (4.1-5.3); Red Cell Distribution Width 12.8 % (12.1-15.1); White Blood Count 8.5 10^3/uL (4.0-10.0)
[2022-11-16 12:31] VITALS: BP 134/91; PULSE 95; O2SAT 99
[2022-11-16 12:48] LABS: Glucose Urine UA 4+ (Normal); Protein Urine Neg (Negative); Urine Appearance Clear (CLEAR); Urine Color Yellow (Yellow); pH Urine 5 (5-7)
[2022-11-16 12:49] LABS: Add Urine Microscopic? YES; Bilirubin Urine Neg (Negative); Blood Urine 3+ (Negative); Ketones Urine 2+ (Negative); Leukocyte Esterase Urine 1+ (Negative); Nitrate Urine Negative (Negative); Urobilinogen Urine Norm (Negative)
[2022-11-16 12:50] LABS: Add Urine Culture? No; Mucus Urine 2+ /hpf
[2022-11-16 12:58] LABS: Alanine Aminotransferase 16 U/L (0-33); Albumin Level 3.9 g/dL (3.5-5.2); Alkaline Phosphatase 60 U/L (35-105); Anion Gap 17.1 (5-19); Aspartate Amino Transferase 13 U/L (0-32); Blood Urea Nitrogen 10 mg/dL (6-20); Calcium 9.2 mg/dL (8.5-10.5); Carbon Dioxide 21 mmol/L (22-29); Chloride 100 mmol/L (98-107); Globulin 2.7 g/dL (1.3-4.6); Glomerular Filtration Rate 117.4 mL/min (90-130); Glucose 219 mg/dL (65-115); Osmolality Calculated 284 mOsm/kg (285-295); Potassium 4.1 mmol/L (3.5-5.1); Sodium 134 mmol/L (136-145); Total Bilirubin 0.3 mg/dL (0.15-1.2); Total Protein 6.6 g/dL (6.6-8.7)
[2022-11-16 13:26] VITALS: BP 144/90; PULSE 89; O2SAT 100
== END 2022-11-16 13:27 | disposition home or self-care (01) ==
PROVIDERS: Emergency Provider Physician Assistant; PCP Obstetrics & Gynecology
DX: O20.9 Hemorrhage in early pregnancy, unspecified (principal); O24.911 Unspecified diabetes mellitus in pregnancy, first trimester; O99.331 Smoking (tobacco) complicating pregnancy, first trimester; F17.200 Nicotine dependence, unspecified, uncomplicated; Z3A.10 10 weeks gestation of pregnancy
CPT/HCPCS: 36415; 80053; 81001; 84702; 85025; 99283

== ENCOUNTER 2022-11-21 06:27 | Emergency (ER) | payer MEDICAID, SELFPAY ==
[2022-11-21 06:32] VITALS: BP 175/102; PULSE 97; RESP 18; TEMP 36.7; O2SAT 96; BMI 51.5
--- NOTE | 2022-11-21 06:34 | W.ED.PREGNAN ---
HPI - General: Chief complaint: OB/Uterine Contractions Stated complaint: 11 wks preg/spotting Time Seen by Provider: 11/21/22 06:33 History of Present Illness: Ms. Rausch is a 32-year-old lady with history of obesity and insulin-dependent diabetes (new to insulin) G2, P0 with prior SAB approximately 13 weeks presenting to the emergency department for vaginal bleeding. She notes onset of symptoms at 10 PM last night without known specific provoking event. Has had bright red/pink with no clots. Denies other discharge or vaginal pain. Intermittent right-sided abdominal cramping is unchanged from prior and does not seem to be correlated. She has been following with Dr. Major however has an appointment on the with high rigger in [place]. No other specific changes in health, exacerbating, or alleviating factors identified. LMP 08/06/2022, UMBERTO 06/12/2023, ultrasound performed 11/07/2022 with IUP, estimated gestational age 8 weeks 2 days. Onset (ago): hour(s) Vaginal discharge: none Vaginal bleeding: light Review of Systems General: Reports: 10 or more systems reviewed and unremarkable except in HPI and below PFSH ED PFSH: Medical History Diabetes Surgical History No significant past surgical history Social History Smoking and tobacco status: current every day smoker Physical Exam Const: COMMON NORMALS: alert GENERAL APPEARANCE: cooperative and well developed HENMT: COMMON NORMALS: normocephalic and atraumatic HEAD & SCALP: normocephalic and atraumatic Eye: COMMON NORMALS: conjunctivae normal CONJUNCTIVA: Yes conjunctivae normal SCLERA: sclerae normal Neck/C-Spine: COMMON NORMALS: supple GENERAL: Yes trachea midline Resp: COMMON NORMALS: clear to auscultation bilaterally EFFORT & INSPECTION: Yes able to speak in complete sentences AUSCULTATION: clear to auscultation bilaterally Cardio: COMMON NORMALS: regular rate and regular rhythm RATE: regular rate RHYTHM: regular rhythm : OTHER: Performed with principal bioinformatics specialist present. No abnormalities of the external genitalia identified. Partially visualized cervical os appears closed. No evidence of blood in the vaginal vault. Bimanual exam is normal. Extremity: GENERAL: Yes normal exam except as noted and No edema Neuro: COMMON NORMALS: moves all extremities SENSORIUM/ORIENTATION: Yes alert and No Orientation impaired Psych: COMMON NORMALS: mental status grossly normal and Normal thought process present THOUGHT PROCESS: Normal thought process present Course Vital Signs: Vital signs: Vital Signs Temperature 98.1 F 11/21/22 06:32 Pulse Rate 83 11/21/22 08:47 Respiratory Rate 18 11/21/22 06:32 Blood Pressure 145/80 11/21/22 08:47 Pulse Oximetry 99 11/21/22 08:47 Oxygen Delivery Me thod Room Air 11/21/22 08:25 MDM - OB/Uterine Contractions Medical Decision Making 32-year-old lady currently with history of SAB presenting with vaginal bleeding. Exam as above. No abdominal tenderness to palpation. Nontoxic. Recent prior laboratory studies reviewed. O+ blood type. No indication for repeat blood work. Urine trichomonas noted without other clear evidence of urinary tract infection. Negative wet prep. I could not adequately visualize intrauterine structures given body habitus and therefore radiology performed ultrasound was ordered. IUP with appropriate growth and cardiac activity noted. Patient treated with 2 g of metronidazole. Satisfactory for outpatient management. Discussed need for sexual partner treatment and risk of reinfection. The results of ED evaluation were discussed with the patient including prescriptions and/or symptomatic cares (if applicable) including appropriate and responsible use, followup plan, and return precautions. The patient verbalized understanding and felt safe for discharge. Medical Records I reviewed the patient's medical records. Lab Data I reviewed the patient's lab results. Radiology Impressions Obstetrics Ultrasound 11/21/22 07:34 IMPRESSION: 1. Single intrauterine gestation of 10 weeks 1 day with an EDC of 06/18/2023, appropriate growth since the prior study. 2. Normal cardiac activity. 3. Gestational sac is positioned low along the endometrium. 4. Very small amount of fluid along the cervical canal was also noted on the prior study. Laboratory Results Urine Color Yellow (Yellow) 11/21/22 07:13 Urine Appearance Hazy (CLEAR) A 11/21/22 07:13 Urine pH 5 (5-7) 11/21/22 07:13 Ur Specific [place] 1.030 (1.005-1.030) 11/21/22 07:13 Urine Protein Neg (Negative) 11/21/22 07:13 Urine Glucose (UA) 4+ (Normal) H 11/21/22 07:13 Urine Ketones Negative (Negative) 11/21/22 07:13 Urine Blood 3+ (Negative) H 11/21/22 07:13 Urine Nitrate Negative (Negative) 11/21/22 07:13 Urine Bilirubin Neg (Negative) 11/21/22 07:13 Urine Urobilinogen Norm mg/dL (Negative) 11/21/22 07:13 Ur Leukocyte Esterase 1+ (Negative) H 11/21/22 07:13 Urine RBC 5-10 /hpf (0-2) H 11/21/22 07:13 Urine WBC 5-10 /hpf (0-5) H 11/21/22 07:13 Ur Squamous Epith Cells 5-10 /hpf (0-5) H 11/21/22 07:13 Amorphous Sediment Not Reportable 11/21/22 07:13 Urine Bacteria 1+ /hpf (NONE) H 11/21/22 07:13 Urine Mucus 2+ /hpf 11/21/22 07:13 Urine Trichomonas 2+ /hpf H 11/21/22 07:13 Discharge Plan Discharge Patient Disposition: Home Clinical Impression: Trichomonal infection, Vaginal bleeding before 22 weeks gestation Condition: Stable Prescriptions: No Action insulin aspart U-100 [Novolog FlexPen U-100 Insulin] 100 unit/mL (3 mL) Insulin Pen 15 unit SUBCUT TID Lantus Solostar U-100 Insulin 100 unit/mL (3 mL) Insulin Pen 25 unit SUBCUT Q12H Multivitamins 28 mg iron- 800 mcg Tablet 1 tab PO DAILY Discharge Orders: Discharge ED (Routine); Ordered 11/21/22 Ordered By: Dmitri Baltazar Referrals: Orlando Major MD [Primary Care Provider] - Discharge Diet: Usual diet Discharge Activity: Resume usual activity Patient Instructions: Threatened Miscarriage (ED), Trichomoniasis (ED) Activity Restrictions/Additional Instructions: Thank you for visiting the emergency department. You were seen and evaluated for vaginal bleeding during early . The exact cause of your symptoms is unclear however may be related to trichomonal infection. This was treated in the emergency department with one-time treatment. You do not require a prescription however this does require repeat testing which should be conducted by your ms access database developer. Your sexual partners also require treatment. They should follow-up with primary care (ideally) or urgent care. Avoid sexual intercourse until partner has also received treatment as you do risk reinfection. Please follow-up with your ms access database developer. Return for anything that you are concerned about and feel needs emergency department evaluation. 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
[2022-11-21 07:16] VITALS: BP 146/99; PULSE 95; O2SAT 97
[2022-11-21 07:21] LABS: Add Urine Microscopic? YES; Bilirubin Urine Neg (Negative); Blood Urine 3+ (Negative); Glucose Urine UA 4+ (Normal); Ketones Urine Negative (Negative); Leukocyte Esterase Urine 1+ (Negative); Nitrate Urine Negative (Negative); Protein Urine Neg (Negative); Urine Appearance Hazy (CLEAR); Urine Color Yellow (Yellow); Urobilinogen Urine Norm (Negative); pH Urine 5 (5-7)
--- NOTE | 2022-11-21 07:34 | US_ITS ---
WS: [id number] EARLY OBSTETRICAL ULTRASOUND (<14 WEEKS). HISTORY: recurrent bleeding/cramping approx 13 weeks COMPARISON: 11/07/2022 Single intrauterine gestational sac is identified. The gestational sac is low along the endometrium. There is a small amount of fluid along the cervical canal. Cardiac activity at 171 BPM. [place]-rump le ngth measures 3.2 cm which corresponds to a gestation of 10w1d. No definite hemorrhage is identified. No free fluid. Ovaries are difficult to visualize due to body habitus and deep position. Doppler was difficult to ob tain in either ovary. US/US OB <=14 wk fetus w transvag IMPRESSION: 1. Single intrauterine gestation of 10 weeks 1 day with an EDC of 06/18/2023, a ppropriate growth since the prior study. 2. Normal cardiac activity. 3. Gestational sac is positioned low along the endometrium. 4. Very small amount of fluid along the cervical canal was also noted on the p rior study.
[2022-11-21 07:38] LABS: Bacteria Urine 1+ /hpf; Mucus Urine 2+ /hpf; Trichomonas Urine 2+ /hpf
[2022-11-21 07:40] LABS: Add Urine Culture? Yes
--- NOTE | 2022-11-21 07:49 | PC.PHAR ---
pt states she takes care of her own medications-pt states she just started using novolog flexpen and lantus solostar on 11/20/22-
[2022-11-21 08:25] VITALS: BP 145/80; PULSE 83; O2SAT 99
[2022-11-21] MEDS: metroNIDAZOLE 500 MG Tablet 2000 MG PO (08:43)
[2022-11-21 08:47] VITALS: BP 145/80; PULSE 83; O2SAT 99
== END 2022-11-21 08:48 | disposition home or self-care (01) ==
PROVIDERS: Emergency Provider Emergency Medicine; PCP Obstetrics & Gynecology
DX: O24.111 Pre-existing type 2 diabetes mellitus, in pregnancy, first trimester (principal); O20.9 Hemorrhage in early pregnancy, unspecified; O98.811 Other maternal infectious and parasitic diseases complicating pregnancy, first trimester; A59.00 Urogenital trichomoniasis, unspecified; Z3A.10 10 weeks gestation of pregnancy; Z79.4 Long term (current) use of insulin; O99.331 Smoking (tobacco) complicating pregnancy, first trimester; F17.210 Nicotine dependence, cigarettes, uncomplicated
CPT/HCPCS: 76801; 76817; 81001; 87086; 87210; 99284

== ENCOUNTER 2023-01-09 06:25 | Emergency (ER) | payer MEDICAID, SELFPAY ==
[2023-01-09 06:32] VITALS: BP 190/99; PULSE 96; RESP 18; TEMP 36.9; O2SAT 98; BMI 53.1
--- NOTE | 2023-01-09 06:37 | W.ED.ABDPA2 ---
HPI - Abdominal Pain General: Chief Complaint: Abdominal Pain Stated Complaint: abd and back pain, 18 wks preg Time Seen by Provider: 01/09/23 06:27 Source: patient Mode of arrival: ambulatory Limitations: no limitations History of Present Illness: 33-year-old female who is currently 18 weeks states that tonight she had some lower back and suprapubic tenderness states pain is a 2 out of 10 in her lower back and suprapbuci region. she denies vaginal bleeding. She denies any worsening or improving factors Associated Symptoms: Denies chills, diarrhea, fever(s), nausea and vomiting Review of Systems Const: Denies: fever(s), chills, body aches or change in appetite Eyes: Denies: blurry vision or eye discomfort ENMT: Denies: throat pain or dental pain Card: Denies: chest pain Resp: Denies: dyspnea GI: Denies: abdominal pain, nausea, vomiting or diarrhea Musc: Denies: neck pain or back pain Skin/Breast: Denies: rash Neuro: Denies: headache(s) PFSH ED PFSH: Medical History Diabetes Surgical History No significant past surgical history Social History Smoking and tobacco status: current every day smoker Physical Exam Const: COMMON NORMALS: no acute distress, patient oriented x3 and healthy appearing HENMT: COMMON NORMALS: normocephalic and atraumatic HEAD & SCALP: normocephalic and atraumatic Eye: COMMON NORMALS: Equal, round and reactive pupils present and EOMs intact bilaterally PUPIL: Yes Equal, round and reactive pupils present Neck/C-Spine: COMMON NORMALS: full ROM and supple Chest: COMMONS NORMALS: normal inspection of the chest and normal palpation of entire chest wall Resp: COMMON NORMALS: normal respiratory effort, No retractions, No use of accessory muscles and clear to auscultation bilaterally AUSCULTATION: clear to auscultation bilaterally Cardio: COMMON NORMALS: regular rate, regular rhythm and No murmurs present (Cardio) RATE: regular rate RHYTHM: regular rhythm GI: COMMON NORMALS: Normal to inspection, nondistended, normoactive bowel sounds present, Soft to palpation, non-tender and no masses PALPATION: Yes Soft to palpation Extremity: COMMON NORMALS: normal to inspection and full ROM Neuro: COMMON NORMALS: patient oriented x3, moves all extremities and no focal motor deficits Psych: COMMON NORMALS: mental status grossly normal, Normal thought process present and cooperative THOUGHT PROCESS: Normal thought process present Skin: COMMON NORMALS: no rashes or lesions noted and no wounds GENERAL SKIN EXAM: no rashes or lesions noted Course Vital Signs: Vital signs: Vital Signs Temperature 98.4 F 01/09/23 06:32 Pulse Rate 96 01/09/23 07:23 Respiratory Rate 18 01/09/23 06:32 Blood Pressure 125/72 01/09/23 07:23 Pulse Oximetry 98 01/09/23 07:23 Oxygen Delivery Me thod Room Air 01/09/23 07:23 MDM - Abdominal Pain Medical Decision Making pt presents here with abdominal cramping likely round ligament pain. her exam is benign. blood work here is normal. pt bedside us shows iup c/w dates fhr 156. she is stable for discharge and is to follow up with her ob and return if worsening. Lab Data 01/09/23 06:41 01/09/23 06:41 Labs/Radiology: Laboratory Results WBC 7.08 10^3/uL (3.29-11.43) 01/09/23 06:41 RBC 4.20 10^6/uL (3.85-5.65) 01/09/23 06:41 Hgb 12.60 g/dL (11.27-16.99) 01/09/23 06:41 Hct 37.4 % (36-47) 01/09/23 06:41 MCV 89.0 fl (85-98) 01/09/23 06:41 MCH 30.0 pg (27-33) 01/09/23 06:41 MCHC 33.7 g/dL (30-55) 01/09/23 06:41 RDW 13.1 % (12.1-15.1) 01/09/23 06:41 Plt Count 278 10^3/cmm (157-399) 01/09/23 06:41 MPV 9.4 fL (7.4-10.4) 01/09/23 06:41 Neut % (Auto) 60.4 % 01/09/23 06:41 Lymph % (Auto) 29.7 % 01/09/23 06:41 [place] % (Auto) 7.6 % 01/09/23 06:41 Eos % (Auto) 1.8 % 01/09/23 06:41 Baso % (Auto) 0.1 % 01/09/23 06:41 Neut # (Auto) 4.27 10^3/uL (1.8-7.7) 01/09/23 06:41 Lymph # (Auto) 2.1 10^3/uL (0.8-4.8) 01/09/23 06:41 [place] # (Auto) 0.5 10^3/uL (0.2-0.9) 01/09/23 06:41 Eos # (Auto) 0.1 10^3/uL (0.0-0.8) 01/09/23 06:41 Baso # (Auto) 0.0 10^3/uL (0.0-0.1) 01/09/23 06:41 Nucleated RBC % (auto) 0 % 01/09/23 06:41 Nucleated RBCs # 0.0 /100WBC 01/09/23 06:41 Sodium 136 mmol/L (136-145) 01/09/23 06:41 Potassium 4.2 mmol/L (3.5-5.1) 01/09/23 06:41 Chloride 105 mmol/L (98-107) 01/09/23 06:41 Carbon Dioxide 22 mmol/L (22-29) 01/09/23 06:41 Anion Gap 13.2 (5-19) 01/09/23 06:41 BUN 6 mg/dL (6-20) 01/09/23 06:41 Creatinine 0.5 mg/dL (0.5-0.9) 01/09/23 06:41 GFR Calculation 143.9 mL/min (90-130) H 01/09/23 06:41 Glucose 146 mg/dL (65-115) H 01/09/23 06:41 Calculated Osmolality 282 mOsm/kg (285-295) L 01/09/23 06:41 Calcium 9.1 mg/dL (8.5-10.5) 01/09/23 06:41 Total Bilirubin 0.2 mg/dL (0.15-1.2) 01/09/23 06:41 AST 9 U/L (0-32) 01/09/23 06:41 ALT 14 U/L (0-33) 01/09/23 06:41 Alkaline Phosphatase 56 U/L (35-105) 01/09/23 06:41 Total Protein 6.4 g/dL (6.6-8.7) L 01/09/23 06:41 Albumin 3.6 g/dL (3.5-5.2) 01/09/23 06:41 Globulin 2.8 g/dL (1.3-4.6) 01/09/23 06:41 Lipase 30 U/L (13-60) 01/09/23 06:41 Urine Color Yellow (Yellow) 01/09/23 07:02 Urine Appearance Sl hazy (CLEAR) A 01/09/23 07:02 Urine pH 6 (5-7) 01/09/23 07:02 Ur Specific [place] 1.020 (1.005-1.030) 01/09/23 07:02 Urine Protein Neg (Negative) 01/09/23 07:02 Urine Glucose (UA) 2+ (Normal) H 01/09/23 07:02 Urine Ketones Negative (Negative) 01/09/23 07:02 Urine Blood Neg (Negative) 01/09/23 07:02 Urine Nitrate Negative (Negative) 01/09/23 07:02 Urine Bilirubin Neg (Negative) 01/09/23 07:02 Urine Urobilinogen Norm mg/dL (Negative) 01/09/23 07:02 Ur Leukocyte Esterase 1+ (Negative) H 01/09/23 07:02 Urine RBC 0-4 /hpf (0-2) H 01/09/23 07:02 Urine WBC 0-4 /hpf (0-5) H 01/09/23 07:02 Ur Squamous Epith Cells 5-10 /hpf (0-5) H 01/09/23 07:02 Amorphous Sediment Not Reportable 01/09/23 07:02 Urine Bacteria Trace /hpf (NONE) 01/09/23 07:02 Hyaline Casts 0-4 /lpf H 01/09/23 07:02 Urine Mucus Trace /hpf 01/09/23 07:02 No radiology studies performed this visit Discharge Plan Discharge Patient Disposition: Home Clinical Impression: Abdominal pain affecting Condition: Stable Prescriptions: New Reglan 10 mg tablet 10 mg PO Q6H PRN (Reason: nausea and vomiting) Qty: 20 0RF No Action insulin aspart U-100 [Novolog FlexPen U-100 Insulin] 100 unit/mL (3 mL) Insulin Pen 15 unit SUBCUT TID Lantus Solostar U-100 Insulin 100 unit/mL (3 mL) Insulin Pen 25 unit SUBCUT Q12H Multivitamins 28 mg iron- 800 mcg Tablet 1 tab PO DAILY Discharge Orders: Discharge ED (Routine); Ordered 01/09/23 Ordered By: Jl Khan Referrals: Orlando Major MD [Primary Care Provider] - 1-3 days Discharge Diet: Advance as tolerated Discharge Activity: Resume usual activity Patient Instructions: Abdominal Pain in (ED) Coding Level of Care Code 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
[2023-01-09 06:46] LABS: Basophils % 0.1 %; Eosinophils # 0.1 10^3/uL (0.0-0.8); Eosinophils % 1.8 %; Hematocrit 37.4 % (36-47); Lymphocytes # 2.1 10^3/uL (0.8-4.8); Lymphocytes % 29.7 %; Mean Corpuscular HGB Conc 33.7 g/dL (30-55); Mean Platelet Volume 9.4 fL (7.4-10.4); Monocytes # 0.5 10^3/uL (0.2-0.9); Monocytes % 7.6 %; Neutrophils # 4.27 10^3/uL (1.8-7.7); Neutrophils % 60.4 %; Nucleated Red Blood Cells % 0 %; Platelet Count 278 10^3/cmm (157-399); Red Cell Distribution Width 13.1 % (12.1-15.1); White Blood Count 7.08 10^3/uL (3.29-11.43)
[2023-01-09] MEDS: sodium chloride 0.9% 1,000 ML 999 ML IV (06:49)
[2023-01-09] MEDS: metoclopramide 5 mg/mL SDV 2 mL 10 MG IVP (06:50)
[2023-01-09] MEDS: diphenhydrAMINE 50 mg/mL SDV 1mL IVP (06:53)
[2023-01-09 07:05] LABS: Alanine Aminotransferase 14 U/L (0-33); Albumin Level 3.6 g/dL (3.5-5.2); Alkaline Phosphatase 56 U/L (35-105); Anion Gap 13.2 (5-19); Aspartate Amino Transferase 9 U/L (0-32); Blood Urea Nitrogen 6 mg/dL (6-20); Calcium 9.1 mg/dL (8.5-10.5); Carbon Dioxide 22 mmol/L (22-29); Chloride 105 mmol/L (98-107); Globulin 2.8 g/dL (1.3-4.6); Glomerular Filtration Rate 143.9 mL/min (90-130); Glucose 146 mg/dL (65-115); Lipase 30 U/L (13-60); Osmolality Calculated 282 mOsm/kg (285-295); Potassium 4.2 mmol/L (3.5-5.1); Sodium 136 mmol/L (136-145); Total Bilirubin 0.2 mg/dL (0.15-1.2); Total Protein 6.4 g/dL (6.6-8.7)
[2023-01-09 07:20] LABS: Add Urine Microscopic? YES; Bilirubin Urine Neg (Negative); Blood Urine Neg (Negative); Glucose Urine UA 2+ (Normal); Ketones Urine Negative (Negative); Leukocyte Esterase Urine 1+ (Negative); Nitrate Urine Negative (Negative); Protein Urine Neg (Negative); Urine Appearance SL Hazy (CLEAR); Urine Color Yellow (Yellow); Urobilinogen Urine Norm (Negative); pH Urine 6 (5-7)
[2023-01-09 07:23] VITALS: BP 125/72; PULSE 96; O2SAT 98
[2023-01-09 07:40] LABS: Add Urine Culture? No; Bacteria Urine TRACE /hpf; Hyaline Casts Urine 0-4 /lpf; Mucus Urine TRACE /hpf; RBC Urine 0-4 /hpf (0-2); WBC Urine 0-4 /hpf (0-5)
== END 2023-01-09 08:01 | disposition home or self-care (01) ==
PROVIDERS: Emergency Provider Emergency Medicine; PCP Obstetrics & Gynecology
DX: O26.892 Other specified pregnancy related conditions, second trimester (principal); Z3A.18 18 weeks gestation of pregnancy; O24.112 Pre-existing type 2 diabetes mellitus, in pregnancy, second trimester; Z79.4 Long term (current) use of insulin; O99.332 Smoking (tobacco) complicating pregnancy, second trimester; F17.210 Nicotine dependence, cigarettes, uncomplicated
CPT/HCPCS: 80053; 81001; 83690; 85025; 96374; 96375; 99284; J1200; J2765; J7030

== ENCOUNTER 2023-01-14 19:05 | Emergency (ER) | payer MEDICAID, SELFPAY ==
[2023-01-14 19:15] VITALS: BP 179/102; PULSE 94; RESP 16; TEMP 36.7; O2SAT 96; BMI 53.1
[2023-01-14 19:30] VITALS: BP 168/79; PULSE 100; RESP 16; O2SAT 98
[2023-01-14] MEDS: hyDRALAzine 25 mg Tablet PO (19:36)
[2023-01-14 19:50] LABS: Basophils % 0.2 %; Eosinophils # 0.1 10^3/uL (0.0-0.8); Eosinophils % 1.1 %; Hematocrit 36.3 % (36-47); Lymphocytes # 2.4 10^3/uL (0.8-4.8); Lymphocytes % 24.7 %; Mean Corpuscular HGB Conc 34.2 g/dL (30-55); Mean Corpuscular Hemoglobin 30.1 pg (27-33); Mean Corpuscular Volume 88.1 fl (85-98); Mean Platelet Volume 9.4 fL (7.4-10.4); Monocytes # 0.6 10^3/uL (0.2-0.9); Neutrophils # 6.56 10^3/uL (1.8-7.7); Neutrophils % 67.6 %; Nucleated Red Blood Cells % 0 %; Platelet Count 295 10^3/cmm (157-399); Red Blood Count 4.12 10^6/uL (3.85-5.65); Red Cell Distribution Width 13.2 % (12.1-15.1); White Blood Count 9.71 10^3/uL (3.29-11.43)
[2023-01-14 20:05] LABS: Alanine Aminotransferase 13 U/L (0-33); Albumin Level 3.7 g/dL (3.5-5.2); Alkaline Phosphatase 55 U/L (35-105); Anion Gap 13.7 (5-19); Aspartate Amino Transferase 9 U/L (0-32); Blood Urea Nitrogen 9 mg/dL (6-20); Carbon Dioxide 24 mmol/L (22-29); Chloride 104 mmol/L (98-107); Globulin 2.8 g/dL (1.3-4.6); Glomerular Filtration Rate 143.9 mL/min (90-130); Glucose 131 mg/dL (65-115); Osmolality Calculated 286 mOsm/kg (285-295); Potassium 3.7 mmol/L (3.5-5.1); Sodium 138 mmol/L (136-145); Total Bilirubin 0.2 mg/dL (0.15-1.2); Total Protein 6.5 g/dL (6.6-8.7)
[2023-01-14 20:16] LABS: Add Urine Microscopic? YES; Bilirubin Urine Neg (Negative); Blood Urine Neg (Negative); Glucose Urine UA 4+ (Normal); Ketones Urine Negative (Negative); Leukocyte Esterase Urine 1+ (Negative); Nitrate Urine Negative (Negative); Protein Urine Neg (Negative); Urine Appearance Cloudy (CLEAR); Urine Color Yellow (Yellow); Urobilinogen Urine 1 mg/dL (Negative); pH Urine 5 (5-7)
[2023-01-14 20:17] LABS: Add Urine Culture? No; Amorphous Sediment Urine 1+ /hpf; Bacteria Urine 2+ /hpf; Squamous Epithelial Cell Urine 15-25 /hpf (0-5)
--- NOTE | 2023-01-14 20:56 | ED_ITS ---
HPI - General Adult General: Chief complaint: General Medical Stated complaint: high bp, 19wks Time Seen by Provider: 01/14/23 19:27 History of Present Illness: Patient presents ER with complaints of just not feeling right and when she went to check her blood pressure was 200/100. Patient is approximately 18-1/2 weeks with no complications G1, P0 patient sees Dr. Major for her OB but also sees a maternal- medicine specialist in [place] because she is an insulin-dependent diabetic. Review of Systems General: Reports: 10 or more systems reviewed and unremarkable except in HPI and below PFSH ED PFSH: Medical History Diabetes Surgical History No significant past surgical history Social History Smoking and tobacco status: current every day smoker Physical Exam Const: COMMON NORMALS: no acute distress, average body habitus, patient oriented x3, no limitations, healthy appearing, alert and well nourished HENMT: COMMON NORMALS: normocephalic, atraumatic, hearing grossly normal bilaterally, external ears normal, Normal external nose present and moist oral mucous membranes HEAD & SCALP: normocephalic and atraumatic NOSE: Normal external nose present EXTERNAL EAR: Yes external ears normal Neck/C-Spine: COMMON NORMALS: no JVD Chest: COMMONS NORMALS: normal inspection of the chest and normal palpation of entire chest wall Resp: COMMON NORMALS: normal respiratory effort, No retractions, No use of accessory muscles and clear to auscultation bilaterally AUSCULTATION: clear to auscultation bilaterally Cardio: COMMON NORMALS: no JVD, regular rate, regular rhythm, S1 normal heart sound present, S2 normal heart sound present, No gallops present (Cardio), No clicks present (Cardio), No murmurs present (Cardio) and No rub (Cardio) RATE: regular rate RHYTHM: regular rhythm HEART SOUNDS: S1 normal heart sound present and S2 normal heart sound present GI: COMMON NORMALS: Normal to inspection, nondistended, normoactive bowel sounds present, Soft to palpation, non-tender, No hepatosplenomegaly present and no masses PALPATION: Yes Soft to palpation and Yes No hepatosplenomegaly present Neuro: COMMON NORMALS: patient oriented x3 SENSORIUM/ORIENTATION: Yes alert Course Vital Signs: Vital signs: Vital Signs Temperature 98.0 F 01/14/23 19:15 Pulse Rate 100 01/14/23 19:30 Respiratory Rate 16 01/14/23 19:30 Blood Pressure 168/79 01/14/23 19:30 Pulse Oximetry 98 01/14/23 19:30 MDM - General Adult Medical Decision Making Patient presents to the ER with complaints of just not feeling right and having a severely elevated blood pressure of 200/100 in . Patient was given 25 mg of hydralazine orally and her blood pressure came down to 128/96. Lab work was obtained which showed the process patient was not spilling any protein in her urine but does have a possible urinary tract infection with a contaminated specimen that has 15-25 squamous cells. This will be treated since the patient is patient be discharged home with a prescription for hydralazine to take on an as-needed basis when blood pressures over 140/90 patient should follow-up with her OB in the next 7 days for further evaluation and treatment. Differential Diagnosis Hypertension in , preeclampsia Medical Records I reviewed the patient's medical records. Lab Data I reviewed the patient's lab results. 01/14/23 19:42 01/14/23 19:42 Laboratory Results WBC 9.71 10^3/uL (3.29-11.43) 01/14/23 19:42 RBC 4.12 10^6/uL (3.85-5.65) 01/14/23 19:42 Hgb 12.40 g/dL (11.27-16.99) 01/14/23 19:42 Hct 36.3 % (36-47) 01/14/23 19:42 MCV 88.1 fl (85-98) 01/14/23 19:42 MCH 30.1 pg (27-33) 01/14/23 19:42 MCHC 34.2 g/dL (30-55) 01/14/23 19:42 RDW 13.2 % (12.1-15.1) 01/14/23 19:42 Plt Count 295 10^3/cmm (157-399) 01/14/23 19:42 MPV 9.4 fL (7.4-10.4) 01/14/23 19:42 Neut % (Auto) 67.6 % 01/14/23 19:42 Lymph % (Auto) 24.7 % 01/14/23 19:42 Wolfe % (Auto) 6.0 % 01/14/23 19:42 Eos % (Auto) 1.1 % 01/14/23 19:42 Baso % (Auto) 0.2 % 01/14/23 19:42 Neut # (Auto) 6.56 10^3/uL (1.8-7.7) 01/14/23 19:42 Lymph # (Auto) 2.4 10^3/uL (0.8-4.8) 01/14/23 19:42 Wolfe # (Auto) 0.6 10^3/uL (0.2-0.9) 01/14/23 19:42 Eos # (Auto) 0.1 10^3/uL (0.0-0.8) 01/14/23 19:42 Baso # (Auto) 0.0 10^3/uL (0.0-0.1) 01/14/23 19:42 Nucleated RBC % (auto) 0 % 01/14/23 19:42 Nucleated RBCs # 0.0 /100WBC 01/14/23 19:42 Sodium 138 mmol/L (136-145) 01/14/23 19:42 Potassium 3.7 mmol/L (3.5-5.1) 01/14/23 19:42 Chloride 104 mmol/L (98-107) 01/14/23 19:42 Carbon Dioxide 24 mmol/L (22-29) 01/14/23 19:42 Anion Gap 13.7 (5-19) 01/14/23 19:42 BUN 9 mg/dL (6-20) 01/14/23 19:42 Creatinine 0.5 mg/dL (0.5-0.9) 01/14/23 19:42 GFR Calculation 143.9 mL/min (90-130) H 01/14/23 19:42 Glucose 131 mg/dL (65-115) H 01/14/23 19:42 Calculated Osmolality 286 mOsm/kg (285-295) 01/14/23 19:42 Calcium 9.0 mg/dL (8.5-10.5) 01/14/23 19:42 Total Bilirubin 0.2 mg/dL (0.15-1.2) 01/14/23 19:42 AST 9 U/L (0-32) 01/14/23 19:42 ALT 13 U/L (0-33) 01/14/23 19:42 Alkaline Phosphatase 55 U/L (35-105) 01/14/23 19:42 Total Protein 6.5 g/dL (6.6-8.7) L 01/14/23 19:42 Albumin 3.7 g/dL (3.5-5.2) 01/14/23 19:42 Globulin 2.8 g/dL (1.3-4.6) 01/14/23 19:42 Urine Color Yellow (Yellow) 01/14/23 19: Urine Appearance Cloudy (CLEAR) A 01/14/23 19:27 Urine pH 5 (5-7) 01/14/23 19:27 Ur Specific [place] 1.030 (1.005-1.030) 01/14/23 19:27 Urine Protein Neg (Negative) 01/14/23 19:27 Urine Glucose (UA) 4+ (Normal) H 01/14/23 19:27 Urine Ketones Negative (Negative) 01/14/23 19:27 Urine Blood Neg (Negative) 01/14/23 19:27 Urine Nitrate Negative (Negative) 01/14/23 19:27 Urine Bilirubin Neg (Negative) 01/14/23 19:27 Urine Urobilinogen 1 mg/dL (Negative) H 01/14/23 19:27 Ur Leukocyte Esterase 1+ (Negative) H 01/14/23 19:27 Urine RBC None /hpf (0-2) 01/14/23 19:27 Urine WBC 5-10 /hpf (0-5) H 01/14/23 19:27 Ur Squamous Epith Cells 15-25 /hpf (0-5) H 01/14/23 19:27 Calcium Oxalate Crystal 5-10 /hpf H 01/14/23 19:27 Amorphous Sediment 1+ /hpf 01/14/23 19:27 Urine Bacteria 2+ /hpf (NONE) H 01/14/23 19:27 No radiology studies performed this visit Discharge Plan Discharge Patient Disposition: Home Clinical Impression: Urinary tract infection affecting Hypertension affecting Qualifiers: Trimester: first trimester Qualified Code(s): O16.1 - Unspecified maternal hypertension, first trimester Condition: Stable Prescriptions: New hydralazine 25 mg tablet 25 mg PO TID PRN (Reason: For blood pressure greater than 140/90) Qty: 14 0RF nitrofurantoin monohyd/m-cryst [Macrobid] 100 mg capsule 100 mg PO BID 7 Days Qty: 14 0RF Rx Instructions: must administer with a meal/food No Action insulin aspart U-100 [Novolog FlexPen U-100 Insulin] 100 unit/mL (3 mL) Insulin Pen 15 unit SUBCUT TID Lantus Solostar U-100 Insulin 100 unit/mL (3 mL) Insulin Pen 25 unit SUBCUT Q12H Multivitamins 28 mg iron- 800 mcg Tablet 1 tab PO DAILY Reglan 10 mg tablet 10 mg PO Q6H PRN (Reason: nausea and vomiting) Qty: 20 0RF Discharge Orders: Discharge ED (Routine); Ordered 01/14/23 Ordered By: José Lehman Referrals: Orlando Major MD [Primary Care Provider] - 1 week Patient Instructions: Urinary Tract Infection in (ED), Hypertension During (ED) Activity Restrictions/Additional Instructions: Please take all medicine as directed. Please follow-up with your OUTB[facility] SALES SPECIALIST for follow-up within the next 7 days for further evaluation and treatment. 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
[2023-01-14 20:59] VITALS: BP 128/96; RESP 16; O2SAT 98
[2023-01-14] MEDS: nitrofurantoin SR (BID) 100 mg Capsule PO (21:16)
[2023-01-14 21:24] VITALS: BP 128/96; PULSE 100; RESP 16; TEMP 36.7; O2SAT 98
== END 2023-01-14 21:27 | disposition home or self-care (01) ==
PROVIDERS: Emergency Provider Emergency Medicine; PCP Obstetrics & Gynecology
DX: O24.111 Pre-existing type 2 diabetes mellitus, in pregnancy, first trimester (principal); O23.41 Unspecified infection of urinary tract in pregnancy, first trimester; N39.0 Urinary tract infection, site not specified; O16.1 Unspecified maternal hypertension, first trimester; O99.331 Smoking (tobacco) complicating pregnancy, first trimester; F17.210 Nicotine dependence, cigarettes, uncomplicated; Z3A.18 18 weeks gestation of pregnancy; Z79.4 Long term (current) use of insulin
CPT/HCPCS: 36415; 80053; 81001; 85025; 99283

== ENCOUNTER 2023-01-18 10:02 | Emergency (ER) | payer MEDICAID, SELFPAY ==
[2023-01-18 10:27] VITALS: BP 175/98; PULSE 97; RESP 18; TEMP 36.8; O2SAT 98; BMI 51.5
--- NOTE | 2023-01-18 10:42 | W.ED.GENADLT ---
HPI - General Adult General: Chief complaint: General Medical Stated complaint: hasn't felt baby move 19 Weeks Time Seen by Provider: 01/18/23 10:20 Source: patient Mode of arrival: ambulatory History of Present Illness: 33-year-old female who who is G1, P0. Patient is at 18 weeks and 3 days gestation by a 10-week 1 day ultrasound done on 11/21/2022 which gives the patient a due date of 06/18/2023. Patient states she has decreased movement. She has not had any vaginal bleeding discharge dysuria urgency or frequency. She has been seeing Dr. Major up to this point. Onset (ago): hour(s) Associated symptoms: Deny dyspnea, fevers/chills, malaise, nausea, rash, syncope or vomiting Treatments prior to arrival: none Review of Systems Const: Denies: fever(s), chills, body aches, change in appetite, fatigue or malaise ENMT: Denies: throat pain, ear or mastoid pain, nasal discharge or nasal congestion Card: Denies: syncope Resp: Denies: dyspnea, productive cough or non-productive cough GI: Denies: nausea or vomiting : Denies: flank pain, difficulty voiding, dysuria, urinary frequency, urinary urgency, vaginal bleeding or vaginal discharge Skin/Breast: Denies: rash or pruritus PFSH ED PFSH: Medical History Diabetes Surgical History No significant past surgical history Social History Smoking and tobacco status: current every day smoker Course Vital Signs: Vital signs: Vital Signs Temperature 98.2 F 01/18/23 11:22 Pulse Rate 97 01/18/23 11:22 Respiratory Rate 18 01/18/23 11:22 Blood Pressure 143/68 01/18/23 11:22 Pulse Oximetry 98 01/18/23 11:22 Oxygen Delivery Me thod Room Air 01/18/23 10:27 MDM - General Adult Medical Decision Making heart tones toppled in the 150s. She denies any vaginal bleeding spotting or discharge. Discussed with the patient would not expect significant amounts of gross movement at this point. Follow-up with gynecology. Also noted with her she is actually at 18 weeks 3 days, she had initially advised us that she was just short of 20 weeks on arrival. Previous ultrasound confirms IUP. Medical Records I reviewed the patient's medical records. Lab Data I reviewed the patient's lab results. No radiology studies performed this visit Discharge Plan Discharge Patient Disposition: Home Clinical Impression: Condition: Stable Prescriptions: No Action insulin aspart U-100 [Novolog FlexPen U-100 Insulin] 100 unit/mL (3 mL) Insulin Pen 15 unit SUBCUT TID Lantus Solostar U-100 Insulin 100 unit/mL (3 mL) Insulin Pen 25 unit SUBCUT Q12H Multivitamins 28 mg iron- 800 mcg Tablet 1 tab PO DAILY Reglan 10 mg tablet 10 mg PO Q6H PRN (Reason: nausea and vomiting) Qty: 20 0RF hydralazine 25 mg tablet 25 mg PO TID PRN (Reason: For blood pressure greater than 140/90) Qty: 14 0RF Discharge Orders: Discharge ED (Routine); Ordered 01/18/23 Ordered By: Roberto Carlos Camacho Referrals: Rober Varghese MD [Primary Care Provider] - Discharge Diet: Usual diet Discharge Activity: Resume usual activity Patient Instructions: Opioid Safety, Pain Management Activity Restrictions/Additional Instructions: Appointment with Dr. Varghese as scheduled. If you have any vaginal bleeding or discharges urgency or frequency follow-up Dr. Mendosa in the emergency room. 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
[2023-01-18 11:22] VITALS: BP 143/68; PULSE 97; RESP 18; TEMP 36.8; O2SAT 98
== END 2023-01-18 11:23 | disposition home or self-care (01) ==
PROVIDERS: Emergency Provider Family Medicine; PCP Family Medicine
DX: Z03.79 Encounter for other suspected maternal and fetal conditions ruled out (principal); Z79.4 Long term (current) use of insulin; E11.9 Type 2 diabetes mellitus without complications; F17.210 Nicotine dependence, cigarettes, uncomplicated
CPT/HCPCS: 99282

== ENCOUNTER 2023-03-08 06:55 | Outpatient (CLI) | payer MEDICAID, SELFPAY ==
[2023-03-08 07:00] VITALS: BMI 57.4
[2023-03-08 07:20] VITALS: BP 131/82; PULSE 87
[2023-03-08 07:24] LABS: Glucose Point of Care 90 mg/dL (70-110)
[2023-03-08 07:26] VITALS: RESP 18
[2023-03-08 07:45] VITALS: BP 131/82; PULSE 87
== END 2023-03-08 07:45 | disposition home or self-care (01) ==
LOC: OPOB 06:58 → OBGYN 06:58
PROVIDERS: PCP Family Medicine; Visit Provider Family Medicine
DX: O26.899 Other specified pregnancy related conditions, unspecified trimester (principal); Z3A.00 Weeks of gestation of pregnancy not specified; R10.9 Unspecified abdominal pain
CPT/HCPCS: 36416; 82962; 99211

== ENCOUNTER 2023-03-22 09:37 | Outpatient (CLI) | payer MEDICAID, SELFPAY ==
[2023-03-22 09:40] VITALS: BMI 56.5
[2023-03-22 09:57] VITALS: BP 182/75; PULSE 107
[2023-03-22 10:17] VITALS: BP 144/70; PULSE 102
[2023-03-22 13:49] VITALS: BP 115/65; PULSE 69
== END 2023-03-22 10:47 | disposition home or self-care (01) ==
LOC: OPS 09:46 → OBGYN 09:54
PROVIDERS: PCP Family Medicine; Visit Provider Family Medicine
DX: O36.8190 Decreased fetal movements, unspecified trimester, not applicable or unspecified (principal); Z3A.00 Weeks of gestation of pregnancy not specified; O16.9 Unspecified maternal hypertension, unspecified trimester
CPT/HCPCS: 59025; 99211

== ENCOUNTER 2023-04-14 13:00 | Outpatient (CLI) | payer MEDICAID, SELFPAY ==
[2023-04-14 13:00] VITALS: BMI 58.8
[2023-04-14 13:26] VITALS: BP 138/84; PULSE 100
[2023-04-14 13:48] LABS: Add Urine Culture? No; Bacteria Urine 2+ /hpf; Bilirubin Urine Neg (Negative); Blood Urine Neg (Negative); Glucose Urine UA 2+ (Normal); Ketones Urine 1+ (Negative); Leukocyte Esterase Urine 2+ (Negative); Nitrate Urine Negative (Negative); Protein Urine Neg (Negative); RBC Urine 0-4 /hpf (0-2); Specific Gravity, Urine 1.025 (1.005-1.030); Squamous Epithelial Cell Urine 15-25 /hpf (0-5); Urine Appearance SL Hazy (CLEAR); Urine Color Yellow (Yellow); Urobilinogen Urine Norm (Negative); WBC Urine 25-40 /hpf (0-5); pH Urine 5 (5-7)
[2023-04-14 14:00] VITALS: RESP 17
[2023-04-14 14:16] VITALS: BP 144/85; PULSE 85
[2023-04-14 15:04] LABS: Glucose Point of Care 84 mg/dL (70-110)
[2023-04-14] MEDS: lactated ringers 1,000 ML 999 ML IV (15:06)
[2023-04-14 15:13] LABS: Basophils % 0.1 %; Eosinophils # 0.1 10^3/uL (0.0-0.8); Eosinophils % 1.1 %; Hematocrit 35.4 % (36-47); Lymphocytes # 2.1 10^3/uL (0.8-4.8); Lymphocytes % 25.3 %; Mean Corpuscular HGB Conc 33.1 g/dL (30-55); Mean Corpuscular Hemoglobin 30.5 pg (27-33); Mean Corpuscular Volume 92.4 fl (85-98); Mean Platelet Volume 9.6 fL (7.4-10.4); Monocytes # 0.6 10^3/uL (0.2-0.9); Monocytes % 6.9 %; Neutrophils # 5.47 10^3/uL (1.8-7.7); Neutrophils % 66.1 %; Nucleated Red Blood Cells % 0 %; Platelet Count 307 10^3/cmm (157-399); Red Blood Count 3.83 10^6/uL (3.85-5.65); Red Cell Distribution Width 13.3 % (12.1-15.1); White Blood Count 8.27 10^3/uL (3.29-11.43)
[2023-04-14 15:33] LABS: Alanine Aminotransferase 8 U/L (0-33); Albumin Level 3.5 g/dL (3.5-5.2); Alkaline Phosphatase 87 U/L (35-105); Anion Gap 13.1 (5-19); Aspartate Amino Transferase 12 U/L (0-32); Blood Urea Nitrogen 10 mg/dL (6-20); Calcium 9.3 mg/dL (8.5-10.5); Carbon Dioxide 24 mmol/L (22-29); Chloride 104 mmol/L (98-107); Globulin 3.1 g/dL (1.3-4.6); Glomerular Filtration Rate 143.9 mL/min (90-130); Glucose 106 mg/dL (65-115); Osmolality Calculated 283 mOsm/kg (285-295); Potassium 4.1 mmol/L (3.5-5.1); Sodium 137 mmol/L (136-145); Total Bilirubin 0.2 mg/dL (0.15-1.2); Total Protein 6.6 g/dL (6.6-8.7); Uric Acid 3.5 mg/dL (2.4-5.7)
[2023-04-14 15:38] LABS: Urine Creatinine 125 mg/dL (28-217); Urine Protein Random 16 mg/dL
[2023-04-14 15:42] LABS: UPRO/UCREAT Ratio 0.13 mg/mg CR
[2023-04-14 15:47] VITALS: BP 141/65; PULSE 89
== END 2023-04-14 16:30 | disposition home or self-care (01) ==
LOC: OPOB 13:06 → OBGYN 13:07
PROVIDERS: PCP Family Medicine; Visit Provider Family Medicine
DX: O26.899 Other specified pregnancy related conditions, unspecified trimester (principal); Z3A.00 Weeks of gestation of pregnancy not specified; R10.9 Unspecified abdominal pain
CPT/HCPCS: 36415; 36416; 59025; 80053; 81001; 82570; 82962; 84156; 84550; 85025; 99211; J7120

== ENCOUNTER 2023-04-16 10:30 | Outpatient (CLI) | payer MEDICAID, SELFPAY ==
[2023-04-16 10:30] VITALS: BMI 58.6
--- NOTE | 2023-04-16 10:35 | USR_ITS ---
PROCEDURE INFORMATION: Exam: US Biophysical Profile Without Non-Stress Test Exam date and time: 04/16/2023 11:07 AM Age: 33 years old Clinical indication: Screening exam; Encounter for screening of mother; Third trimester (=28 weeks 0 days); ; Additional info: Shabnam is and diabetic TECHNIQUE: Imaging protocol: US biophysical profile without non-stress testing. COMPARISON: US OB <=14 wk fetus w transvag 11/21/2022 7:50 AM FINDINGS: Gestation: There is a single live intrauterine gestation. heart rate: heart rate measures 147 bpm. presentation: Vertex presentation. Placenta: Anterior placenta. Amniotic fluid index: Amniotic fluid index measures 12.6 cm. BIOPHYSICAL PROFILE: breathing movement (BPP): 2 out of 2. body movement (BPP): 2 out of 2. tone (BPP): 2 out of 2. Amniotic fluid (BPP): 2 out of 2. MATERNAL ANATOMY: Cervix: The cervix measures 4.6 cm in length. US/US OB BPP NST [id number] IMPRESSION: Biophysical profile measures 11/27.
[2023-04-16 10:40] VITALS: BP 136/66; PULSE 102
[2023-04-16 11:01] VITALS: BP 130/69; PULSE 95
[2023-04-16 11:25] VITALS: BP 130/69; PULSE 95
== END 2023-04-16 11:25 | disposition home or self-care (01) ==
LOC: OPOB 10:31 → OBGYN 10:32
PROVIDERS: Absent Provider Family Medicine; PCP Family Medicine; Visit Provider Family Medicine
DX: O24.419 Gestational diabetes mellitus in pregnancy, unspecified control (principal); Z3A.00 Weeks of gestation of pregnancy not specified
CPT/HCPCS: 59025; 76819; 99211

== ENCOUNTER 2023-04-20 00:56 | Outpatient (CLI) | payer MEDICAID, SELFPAY ==
[2023-04-20 00:45] VITALS: BMI 58.8
[2023-04-20 01:07] VITALS: BP 138/82; PULSE 90
[2023-04-20 01:36] VITALS: BP 160/77; PULSE 89
== END 2023-04-20 01:45 | disposition home or self-care (01) ==
LOC: OPOB 00:57 → OBGYN 00:58
PROVIDERS: PCP Family Medicine; Visit Provider Family Medicine
DX: O36.8190 Decreased fetal movements, unspecified trimester, not applicable or unspecified (principal); Z3A.00 Weeks of gestation of pregnancy not specified
CPT/HCPCS: 59025; 99211

== ENCOUNTER 2023-04-23 10:09 | Outpatient (CLI) | payer MEDICAID, SELFPAY ==
[2023-04-23 10:15] VITALS: BMI 58.3
[2023-04-23 10:21] VITALS: BP 131/70; PULSE 97
[2023-04-23 10:36] VITALS: BP 138/79; PULSE 96
[2023-04-23 10:51] VITALS: BP 145/77; PULSE 96
--- NOTE | 2023-04-23 11:05 | USR_ITS ---
PROCEDURE INFORMATION: Exam: US Biophysical Profile Without Non-Stress Test Exam date and time: 04/23/2023 11:55 AM Age: 33 years old Clinical indication: Condition or disease; Other: Type 2 diabetes; ; Additional info: Bpp for type 2 diabetes TECHNIQUE: Imaging protocol: US biophysical profile without non-stress testing. COMPARISON: US OB BPP wo NST [id number] 04/16/2023 11:07 AM FINDINGS: Gestation: There is a single live intrauterine gestation identified. heart rate: 136 bpm presentation: There is a breech presentation. Placenta: The placenta is posteriorly located. There is no evidence of placenta previa. Amniotic fluid index: The amniotic fluid index measures 15.9 cm. BIOPHYSICAL PROFILE: breathing movement (BPP): 2 out of 2. body movement (BPP): 2 out of 2. tone (BPP): 2 out of 2. Amniotic fluid (BPP): 2 out of 2. MATERNAL ANATOMY: Cervix: The cervical length measures 3.99 cm. US/US OB BPP NST [id number] IMPRESSION: Biophysical profile of 11/27.
== END 2023-04-23 12:08 | disposition home or self-care (01) ==
LOC: OPOB 10:12 → OBGYN 10:14
PROVIDERS: PCP Family Medicine; Visit Provider Family Medicine
DX: O24.419 Gestational diabetes mellitus in pregnancy, unspecified control (principal); Z3A.00 Weeks of gestation of pregnancy not specified
CPT/HCPCS: 59025; 76819

== ENCOUNTER 2023-04-30 09:10 | Outpatient (CLI) | payer MEDICAID, SELFPAY ==
[2023-04-30 09:19] VITALS: BP 141/82; PULSE 98
--- NOTE | 2023-04-30 09:21 | US_ITS ---
WS: [id number] ULTRASOUND OB LIMITED TECHNIQUE: Limited ultrasound examination of the fetus. CLINICAL INFORMATION: HTN, DMII G2, P0 COMPARISON: 04/23/2023 FINDINGS: Cervix is long and closed measuring 4.3 cm Single interuterine gestation. heart rate 138 BPM. Normal LULÚ 7.7 cm Largest single vertical pocket measuring 2.6 cm presentation is breech. Biophysical profile 8 out of 8. breathin movement: 2 tone: 2 Amniotic fluid: 2 IMPRESSION: 1. Normal biophysical profile 8 out of 8 2. Closed cervix measuring 4.3 cm 3. presentation is breech.
[2023-04-30 09:23] VITALS: BMI 57.8
[2023-04-30 09:34] VITALS: BP 140/67; PULSE 96
[2023-04-30 09:49] VITALS: BP 139/71; PULSE 91
[2023-04-30 10:04] VITALS: BP 131/63; PULSE 90
== END 2023-04-30 10:09 ==
LOC: OPOB 09:11 → OBGYN 09:11
PROVIDERS: PCP Family Medicine; Visit Provider Family Medicine
DX: O24.419 Gestational diabetes mellitus in pregnancy, unspecified control (principal); Z3A.00 Weeks of gestation of pregnancy not specified; O16.9 Unspecified maternal hypertension, unspecified trimester
CPT/HCPCS: 59025; 76819

== ENCOUNTER 2023-05-05 11:22 | Outpatient (CLI) | payer MEDICAID, SELFPAY ==
[2023-05-05 11:20] VITALS: BMI 58.6
[2023-05-05 11:36] VITALS: BP 154/68; PULSE 99
[2023-05-05 11:56] VITALS: BP 146/65; PULSE 93
[2023-05-05 12:16] VITALS: BP 136/62; PULSE 90
[2023-05-05 12:22] LABS: Add Urine Culture? No; Bacteria Urine 2+ /hpf; Bilirubin Urine Neg (Negative); Blood Urine Neg (Negative); Glucose Urine UA 4+ (Normal); Ketones Urine Negative (Negative); Leukocyte Esterase Urine 1+ (Negative); Nitrate Urine Negative (Negative); Protein Urine Neg (Negative); Squamous Epithelial Cell Urine 25-40 /hpf (0-5); Urine Appearance Hazy (CLEAR); Urine Color Yellow (Yellow); Urobilinogen Urine Norm (Negative); WBC Urine 55-80 /hpf (0-5); pH Urine 5 (5-7)
[2023-05-05] MEDS: cefdinir 300 MG CAPSULE PO (12:44)
== END 2023-05-05 12:47 | disposition home or self-care (01) ==
LOC: OPOB 11:22 → OBGYN 11:23
PROVIDERS: PCP Family Medicine; Visit Provider Family Medicine
DX: O26.899 Other specified pregnancy related conditions, unspecified trimester (principal); Z3A.00 Weeks of gestation of pregnancy not specified
CPT/HCPCS: 59025; 81001; 87086; 99211

== ENCOUNTER 2023-05-07 09:06 | Outpatient (CLI) | payer MEDICAID, SELFPAY ==
--- NOTE | 2023-05-07 09:09 | US_ITS ---
WS: [id number] ULTRASOUND OB LIMITED TECHNIQUE: Limited ultrasound examination of the fetus. CLINICAL INFORMATION: GESTIONAL DIABETIC COMPARISON: 04/30/2023 FINDINGS: Cervix is long and closed measuring 4.2 cm Single interuterine gestation. presentation is vertex Placental location is posterior. Placenta grade: 2 heart rate 147 BPM. Single largest vertical pocket 4.1 cm Biophysical profile 8 out of 8. breathin movement: 2 tone: 2 Amniotic fluid: 2 IMPRESSION: 1. Normal biophysical profile 8 out of 8 2. Presentation is vertex today 3. Cervix is long and closed. 4. Posterior placenta.
[2023-05-07 09:18] VITALS: BP 120/71; PULSE 113
[2023-05-07 09:27] VITALS: BMI 58.0
[2023-05-07 09:38] VITALS: BP 115/58; PULSE 109
[2023-05-07 09:58] VITALS: BP 115/56; PULSE 91
== END 2023-05-07 10:35 | disposition home or self-care (01) ==
LOC: OPOB 09:06 → OBGYN 09:07
PROVIDERS: PCP Family Medicine; Visit Provider Family Medicine
DX: O24.419 Gestational diabetes mellitus in pregnancy, unspecified control (principal); Z3A.00 Weeks of gestation of pregnancy not specified
CPT/HCPCS: 59025; 76819; 99211

== ENCOUNTER 2023-05-14 09:30 | Outpatient (CLI) | payer MEDICAID, SELFPAY ==
[2023-05-14 09:58] VITALS: BP 144/84; PULSE 95; RESP 18
[2023-05-14 09:59] VITALS: BMI 59.0
[2023-05-14 10:11] VITALS: BP 144/72; PULSE 83
--- NOTE | 2023-05-14 10:30 | US_ITS ---
WS: [id number] BIOPHYSICAL PROFILE AMNIOTIC FLUID HISTORY: GDM COMPARISON: 05/07/2023 position: Vertex. Cardiac activity: 150 bpm. Cervix: closed. Placenta: Fundal, no previa. No abruption. Placenta grade: 2 Parameters are as follows: Breathin Movement: 2 Tone: 2 Fluid volume: 2 Amniotic Fluid Index: 9.0 IMPRESSION: 1. Biophysical profile score: 8/8. 2. Normal amniotic fluid.
== END 2023-05-14 11:00 | disposition home or self-care (01) ==
LOC: OPOB 09:39 → OBGYN 09:40
PROVIDERS: PCP Family Medicine; Visit Provider Family Medicine
DX: O24.419 Gestational diabetes mellitus in pregnancy, unspecified control (principal); Z3A.00 Weeks of gestation of pregnancy not specified
CPT/HCPCS: 76819

== ENCOUNTER 2023-05-18 17:07 | Outpatient (CLI) | payer MEDICAID, SELFPAY ==
[2023-05-18 17:07] VITALS: BMI 59.2
[2023-05-18 17:19] VITALS: RESP 17
== END 2023-05-18 18:12 | disposition home or self-care (01) ==
LOC: OPOB 17:08 → OBGYN 17:08
PROVIDERS: PCP Family Medicine; Visit Provider Family Medicine
DX: O26.899 Other specified pregnancy related conditions, unspecified trimester (principal); Z3A.00 Weeks of gestation of pregnancy not specified; R10.9 Unspecified abdominal pain
CPT/HCPCS: 59025; 99211

== ENCOUNTER 2023-05-20 11:00 | Outpatient (CLI) | payer MEDICAID, SELFPAY ==
--- NOTE | 2023-05-20 11:14 | US_ITS ---
WS: [id number] BIOPHYSICAL PROFILE AMNIOTIC FLUID HISTORY: GDM, with NST COMPARISON: 05/14/2023 position: Vertex. Cardiac activity: 150 bpm. Cervix: closed. Placenta: Anterior, no previa or abruption. Placenta grade: 2 Parameters are as follows: Breathin Movement: 2 Tone: 0 Fluid volume: 2 Amniotic Fluid Index: 10.4 cm IMPRESSION: 1. Biophysical profile score: 6 /8. 2. Normal amniotic fluid.
[2023-05-20 11:41] VITALS: BP 129/68
[2023-05-20 11:59] VITALS: BP 145/62
[2023-05-20 12:11] VITALS: BP 154/62
[2023-05-20 12:51] VITALS: BP 143/83; PULSE 93
== END 2023-05-20 13:01 ==
LOC: OPOB 11:03 → OBGYN 11:12
PROVIDERS: PCP Family Medicine; Visit Provider Family Medicine
DX: O24.419 Gestational diabetes mellitus in pregnancy, unspecified control (principal); Z3A.00 Weeks of gestation of pregnancy not specified
CPT/HCPCS: 59025; 76819

== ENCOUNTER 2023-05-27 09:03 | Outpatient (CLI) | payer MEDICAID, SELFPAY ==
[2023-05-27 09:07] VITALS: BMI 59.0
[2023-05-27 09:09] VITALS: BP 133/97; PULSE 116
[2023-05-27 09:11] VITALS: RESP 16
[2023-05-27 09:25] VITALS: BP 131/78; PULSE 105
[2023-05-27 09:40] VITALS: BP 130/62; PULSE 98
[2023-05-27 09:49] VITALS: RESP 18
--- NOTE | 2023-05-27 09:51 | US_ITS ---
WS: [id number] BIOPHYSICAL PROFILE AMNIOTIC FLUID HISTORY: diabetes COMPARISON: 05/20/2023 position: Vertex. Cardiac activity: 167 bpm. Cervix: closed. Placenta: Fundal, no previa or abruption. Placenta grade: 2, placenta is approaching grade 3. Parameters are as follows: Breathin Movement: 2 Tone: 2 Fluid volume: 2 Amniotic Fluid Index: 13.1 IMPRESSION: 1. Biophysical profile score: 8/8. 2. Normal amniotic fluid index.
== END 2023-05-27 10:29 | disposition home or self-care (01) ==
LOC: OPOB 09:03 → OBGYN 09:05
PROVIDERS: PCP Family Medicine; Visit Provider Family Medicine
DX: O26.899 Other specified pregnancy related conditions, unspecified trimester (principal); Z3A.00 Weeks of gestation of pregnancy not specified
CPT/HCPCS: 59025; 76819; 99211

== ENCOUNTER 2023-06-24 05:53 | Emergency (ER) | payer MEDICAID, SELFPAY ==
[2023-06-24 05:58] VITALS: BP 157/101; PULSE 80; RESP 15; TEMP 36.8; O2SAT 97; BMI 54.1
--- NOTE | 2023-06-24 06:07 | XRR_ITS ---
PROCEDURE INFORMATION: Exam: XR Chest Exam date and time: 06/24/2023 6:24 AM Age: 33 years old Clinical indication: Cough; Additional info: Dyspnea/cough TECHNIQUE: Imaging protocol: Radiologic exam of the chest. Views: 1 view. COMPARISON: CR XR chest 1V portable [id number] 06/19/2020 11:35 PM FINDINGS: Lungs: Unremarkable. No consolidation. Pleural spaces: Unremarkable. No pleural effusion. No pneumothorax. Heart/Mediastinum: Unremarkable. No cardiomegaly. Bones/joints: Unremarkable. XR/XR chest 1V portable [id number] IMPRESSION: No acute findings.
--- NOTE | 2023-06-24 06:12 | ED_ITS ---
HPI - Chest Pain 2 General: Chief Complaint: Chest Pain Stated Complaint: chest pain & back vomiting recent c sec Time Seen by Provider: 06/24/23 06:06 Source: patient Mode of arrival: ambulatory History of Present Illness: 33-year-old female presents emergency ro om with epigastric pain rating to her chest and into her mid back. Patient is 3 weeks status post section. She is also insulin-dependent diabetic. Patient denies dysuria urgency or frequency no fever sweats or chills. Pain is worse when she takes a deep breath. She has not had a productive cough. She did have a single episode of emesis which seem to improve her symptoms. MD complaint: chest pain Onset (ago): minute(s) Onset: during rest Pain location: substernal Pain radiation: back Severity: moderate Quality: sharp Exacerbating factors: inspiration Associated symptoms: Reports abdominal pain, nausea and vomiting; Deny diaphoresis, dyspnea, fever(s), leg edema, palpitations, sense of impending doom or syncope Treatment prior to arrival: none Review of Systems 2 Const: Denies: fever(s), chills or diaphoresis Card: Reports: chest pain; Denies: palpitations, edema, swelling of feet/ankles or syncope Resp: Denies: dyspnea GI: Reports: abdominal pain, nausea and vomiting; Denies: hematemesis, coffee ground emesis or diarrhea : Reports: flank pain; Denies: dysuria, urinary frequency or urinary urgency Musc: Denies: neck pain or back pain Skin/Breast: Denies: rash PFSH ED 2 PFSH: Medical History Diabetes Surgical History No significant past surgical history Social History Smoking and tobacco/nicotine status: current every day tobacco/nicotine user Physical Exam 2 Const: GENERAL APPEARANCE: cooperative ORIENTATION/CONSCIOUSNESS: Yes awake, Yes oriented to person, Yes oriented to place and Yes oriented to time HENMT: COMMON NORMALS: normocephalic, atraumatic and hearing grossly normal bilaterally HEAD & SCALP: normocephalic and atraumatic Resp: COMMON NORMALS: normal respiratory effort, No retractions, No use of accessory muscles and clear to auscultation bilaterally AUSCULTATION: clear to auscultation bilaterally Cardio: COMMON NORMALS: regular rate, regular rhythm and No murmurs present (Cardio) RATE: regular rate RHYTHM: regular rhythm GI: COMMON NORMALS: Soft to palpation and No hepatosplenomegaly present A USCULTATION: Yes normoactive bowel sounds PALPATION: Yes Soft to palpation, No Tenderness to palpation present (GI), No Guarding due to palpation present (GI) and Yes No hepatosplenomegaly present Extremity: COMMON NORMALS: normal to inspection, capillary refill normal, no clubbing, cyanosis or edema, no calf tenderness and no pedal edema Neuro: SENSORIUM/ORIENTATION: Yes oriented to person, Yes oriented to place and Yes oriented to time Skin: COMMON NORMALS: no rashes or lesions noted GENERAL SKIN EXAM: no rashes or lesions noted Course 2 Vital Signs: Vital signs: Vital Signs Temperature 98.2 F 06/24/23 05:58 Pulse Rate 80 06/24/23 05:58 Respiratory Rate 15 06/24/23 05:58 Blood Pressure 138/71 06/24/23 09:44 Pulse Oximetry 98 06/24/23 09:44 Oxygen Delivery Me thod Room Air 06/24/23 08:21 MDM - Chest Pain Medical Decision Making Labs and imaging reviewed. No leukocytosis no significant elevation of liver functions or T. bili. CTA chest negative for pulmonary emboli or pneumonia or other causes of chest discomfort. Gallbladder ultrasound is unremarkable for acute cholecystitis. Suspect the pain is referred pain from reflux and/or gallbladder issues. Discharge home pantoprazole 40 twice daily for 10 days then daily. Recheck with primary care within the next week Medical Records I reviewed the patient's medical records. Lab Data I reviewed the patient's lab results. 06/24/23 06:18 06/24/23 06:18 Radiology Impressions Chest X-Ray 06/24/23 06:07 IMPRESSION: No acute findings. Laboratory Results WBC 8.16 10^3/uL (3.29-11.43) 06/24/23 06:18 RBC 4.20 10^6/uL (3.85-5.65) 06/24/23 06:18 Hgb 12.30 g/dL (11.27-16.99) 06/24/23 06:18 Hct 38.3 % (36-47) 06/24/23 06:18 MCV 91.2 fl (85-98) 06/24/23 06:18 MCH 29.3 pg (27-33) 06/24/23 06:18 MCHC 32.1 g/dL (30-55) 06/24/23 06:18 RDW 12.4 % (12.1-15.1) 06/24/23 06:18 Plt Count 372 10^3/cmm (157-399) 06/24/23 06:18 MPV 9.4 fL (7.4-10.4) 06/24/23 06:18 Neut % (Auto) 66.1 % 06/24/23 06:18 Lymph % (Auto) 24.9 % 06/24/23 06:18 [place] % (Auto) 6.0 % 06/24/23 06:18 Eos % (Auto) 2.2 % 06/24/23 06:18 Baso % (Auto) 0.4 % 06/24/23 06:18 Neut # (Auto) 5.40 10^3/uL (1.8-7.7) 06/24/23 06:18 Lymph # (Auto) 2.0 10^3/uL (0.8-4.8) 06/24/23 06:18 [place] # (Auto) 0.5 10^3/uL (0.2-0.9) 06/24/23 06:18 Eos # (Auto) 0.2 10^3/uL (0.0-0.8) 06/24/23 06:18 Baso # (Auto) 0.0 10^3/uL (0.0-0.1) 06/24/23 06:18 Nucleated RBC % (auto) 0 % 06/24/23 06:18 Nucleated RBCs # 0.0 /100WBC 06/24/23 06:18 D-Dimer 1.53 ug/mLFEU (0-0.59) H 06/24/23 07:25 Sodium 140 mmol/L (136-145) 06/24/23 06:18 Potassium 4.6 mmol/L (3.5-5.1) 06/24/23 06:18 Chloride 103 mmol/L (98-107) 06/24/23 06:18 Carbon Dioxide 26 mmol/L (22-29) 06/24/23 06:18 Anion Gap 15.6 (5-19) 06/24/23 06:18 BUN 14 mg/dL (6-20) 06/24/23 06:18 Creatinine 0.7 mg/dL (0.5-0.9) 06/24/23 06:18 GFR Calculation 97.6 mL/min (90-130) 06/24/23 06:18 Glucose 195 mg/dL (65-115) H 06/24/23 06:18 Calculated Osmolality 296 mOsm/kg (285-295) H 06/24/23 06:18 Lactic Acid 1.0 mmol/L (0.5-2.2) 06/24/23 06:18 Calcium 8.8 mg/dL (8.5-10.5) 06/24/23 06:18 Total Bilirubin 0.2 mg/dL (0.15-1.2) 06/24/23 06:18 AST 22 U/L (0-32) 06/24/23 06:18 ALT 15 U/L (0-33) 06/24/23 06:18 Alkaline Phosphatase 130 U/L (35-105) H 06/24/23 06:18 Creatine Kinase 50 U/L (26-192) 06/24/23 06:18 Total Protein 7.2 g/dL (6.6-8.7) 06/24/23 06:18 Albumin 3.8 g/dL (3.5-5.2) 06/24/23 06:18 Globulin 3.4 g/dL (1.3-4.6) 06/24/23 06:18 Lipase 43 U/L (13-60) 06/24/23 06:18 Urine Color Yellow (Yellow) 06/24/23 06:31 Urine Appearance Cloudy (CLEAR) A 06/24/23 06:31 Urine pH 5 (5-7) 06/24/23 06:31 Ur Specific [place] 1.015 (1.005-1.030) 06/24/23 06:31 Urine Protein Neg (Negative) 06/24/23 06:31 Urine Glucose (UA) Norm (Normal) 06/24/23 06:31 Urine Ketones Negative (Negative) 06/24/23 06:31 Urine Blood 3+ (Negative) H 06/24/23 06:31 Urine Nitrate Negative (Negative) 06/24/23 06:31 Urine Bilirubin Neg (Negative) 06/24/23 06:31 Urine Urobilinogen Neg mg/dL (Negative) 06/24/23 06:31 Ur Leukocyte Esterase 2+ (Negative) H 06/24/23 06:31 Urine RBC 0-4 /hpf (0-2) H 06/24/23 06:31 Urine WBC 25-40 /hpf (0-5) H 06/24/23 06:31 Ur Squamous Epith Cells 15-25 /hpf (0-5) H 06/24/23 06:31 Amorphous Sediment Not Reportable 06/24/23 06:31 Urine Bacteria 1+ /hpf (NONE) H 06/24/23 06:31 Urine Mucus Trace /hpf 06/24/23 06:31 All radiology interpretation(s) finalized by discharge Discharge Plan Discharge Patient Disposition: Home Clinical Impression: Atypical chest pain Condition: Stable Prescriptions: New Protonix 40 mg tablet,delayed release (DR/EC) 40 mg PO BID 30 Days Qty: 40 0RF No Action insulin aspart U-100 [Novolog FlexPen U-100 Insulin] 100 unit/mL (3 mL) Insulin Pen See Rx Instructions .ROUTE .COMPLEX Rx Instructions: 25 units subcutaneously in the am, 37 units at noon and 45 units at dinner (max 150 units per day) insulin glargine [Lantus Solostar U-100 Insulin] 100 unit/mL (3 mL) Insulin Pen See Rx Instructions .ROUTE .COMPLEX Rx Instructions: 50 units subcutaneously in the am and 30-60 units at bedtime PNV cmb#[id number]-ferrous fumarate-FA [ Multivitamins] 28 mg iron- 800 mcg Tablet 1 tab PO QAM sertraline [Zoloft] 25 mg Tablet 25 mg PO QAM Discharge Orders: Discharge ED (Routine); Ordered 06/24/23 Ordered By: Roberto Carlos Camacho Referrals: Rober Varghese MD [Primary Care Provider] - Discharge Diet: Usual diet Discharge Activity: Increase activity as tolerated Patient Instructions: Diet for Stomach Ulcers and Gastritis (ED), Opioid Safety, Pain Management Activity Restrictions/Additional Instructions: Thank you for choosing [facility] for your healthcare needs today. Please realize this is an emergency room and that we are providing you with a medical screening exam and this may not be complete and all inclusive of all the testing and or work up that you may need to determine your ailment or severity of your illness. It is very important that you follow up as instructed or that you return to the Emergency Department should you have concerns or if your condition changes or worsens in any way. You are seen today for complaints of chest and back pain. CTA of your chest was unremarkable EKG done in the emergency room showed normal sinus rhythm with no acute changes. There is a slight increase in your alk phosphatase which is a liver enzyme but the rest of your liver enzymes and your total bilirubin were normal. Recommend you start on the pantoprazole 1 pill twice a day. Avoid spicy food spicy foods and carbonated beverages. If you have persistent symptoms follow-up with your primary care doctor. If symptoms persist you may need further evaluation including possibly EGD or HIDA scan of your gallbladder if felt to be appropriate Coding Level of Care Code ED [employer] for Harley Recinos
[2023-06-24 06:31] LABS: Basophils % 0.4 %; Eosinophils # 0.2 10^3/uL (0.0-0.8); Eosinophils % 2.2 %; Hematocrit 38.3 % (36-47); Lymphocytes % 24.9 %; Mean Corpuscular HGB Conc 32.1 g/dL (30-55); Mean Corpuscular Hemoglobin 29.3 pg (27-33); Mean Corpuscular Volume 91.2 fl (85-98); Mean Platelet Volume 9.4 fL (7.4-10.4); Monocytes # 0.5 10^3/uL (0.2-0.9); Neutrophils % 66.1 %; Nucleated Red Blood Cells % 0 %; Platelet Count 372 10^3/cmm (157-399); Red Cell Distribution Width 12.4 % (12.1-15.1); White Blood Count 8.16 10^3/uL (3.29-11.43)
[2023-06-24 06:48] LABS: Alanine Aminotransferase 15 U/L (0-33); Albumin Level 3.8 g/dL (3.5-5.2); Alkaline Phosphatase 130 U/L (35-105); Anion Gap 15.6 (5-19); Aspartate Amino Transferase 22 U/L (0-32); Blood Urea Nitrogen 14 mg/dL (6-20); Calcium 8.8 mg/dL (8.5-10.5); Carbon Dioxide 26 mmol/L (22-29); Chloride 103 mmol/L (98-107); Creatine Phosphokinase 50 U/L (26-192); Creatinine Clr Calc Pharmacy 165.3964; Globulin 3.4 g/dL (1.3-4.6); Glomerular Filtration Rate 97.6 mL/min (90-130); Glucose 195 mg/dL (65-115); Lipase 43 U/L (13-60); Osmolality Calculated 296 mOsm/kg (285-295); Potassium 4.6 mmol/L (3.5-5.1); Sodium 140 mmol/L (136-145); Total Bilirubin 0.2 mg/dL (0.15-1.2); Total Protein 7.2 g/dL (6.6-8.7)
[2023-06-24 07:29] LABS: Add Urine Microscopic? YES; Bilirubin Urine Neg (Negative); Blood Urine 3+ (Negative); Glucose Urine UA Norm (Normal); Ketones Urine Negative (Negative); Leukocyte Esterase Urine 2+ (Negative); Nitrate Urine Negative (Negative); Protein Urine Neg (Negative); RBC Urine 0-4 /hpf (0-2); Specific Gravity, Urine 1.015 (1.005-1.030); Urine Appearance Cloudy (CLEAR); Urine Color Yellow (Yellow); Urobilinogen Urine Neg (Negative); WBC Urine 25-40 /hpf (0-5); pH Urine 5 (5-7)
[2023-06-24 07:30] LABS: Add Urine Culture? No; Bacteria Urine 1+ /hpf; Mucus Urine TRACE /hpf; Squamous Epithelial Cell Urine 15-25 /hpf (0-5)
[2023-06-24 07:32] VITALS: O2SAT 97
--- NOTE | 2023-06-24 07:33 | PC.PHAR ---
pt states she takes care of her own medications-pt states she takes maybe zoloft but unsure of the mg-pt states she uses novolog flexpen 25 units in the am 30 something at noon and 30 something at hs and lantus solostar 50 units in the am and 30-60 units at bedtime-pt states to call [facility] to double check the novolog flexpen sig-waiting for [facility] to open to verify
--- NOTE | 2023-06-24 07:50 | US_ITS ---
WS: [id number] RIGHT UPPER QUADRANT ULTRASOUND HISTORY: abd/chest pain COMPARISON: 09/22/2017 Liver: 21.8 cm in length. Markedly enlarged liver. Similar to the prior study. No mass or bile duct d ilatation. Portal Vein: Normal hepatopetal flow with monophasic waveform. Gallbladder: Nondistended gallbladder. There is shadowing adjacent to the gallbladder from the GI tra ct. No stones or cholelithiasis identified at this time within the gallbladder. CBD: 0.4 cm Pancreas: Partially visualized. Body and tail are poorly visualized. Right kidney: 10.8 cm in length. Normal size and echogenicity. No hydronephrosis or mass. Aorta and IVC: Unremarkable abdominal aorta and IVC. No ascites. IMPRESSION: 1. Markedly enlarged liver with hepatic steatosis. 2. Negative gallbladder. No stones identified.
[2023-06-24 07:59] LABS: D Dimer 1.53 ug/mLFEU (0-0.59)
--- NOTE | 2023-06-24 08:05 | CT_ITS ---
WS: [id number] CTA OF THE CHEST WITH PULMONARY EMBOLISM PROTOCOL TECHNIQUE: High-resolution contrast enhanced CTA of the chest with coronal and sagittal reformatted i steves with pulmonary embolism protocol. MIP images are also reviewed. CLINICAL INFORMATION: Chest pain elevated D-dimer COMPARISON: 2019 DLP: 482.[address] scans at [facility] use at least one of these dose optimization techniques: automated e xposure control; mA and/or kV adjustment per patient size (includes targeted exams where dose is matc hed to clinical indication); or iterative reconstruction. FINDINGS: Proximal main pulmonary arteries are normal. Normal segmental and subsegmental pulmonary arteries. No evidence of pulmonary embolus. Normal caliber thoracic aorta. No mediastinal or hilar lymphadenopathy. No axillary lymphadenopathy. Adrenal glands are normal. Lungs are well aerated. No acute pulmonary infiltrates. No focal pneumonia or pleural fluid. A few Sc hmorl's nodes in the mid and lower thoracic spine. IMPRESSION: 1. No evidence of pulmonary embolus. 2. Lungs are well aerated. No acute pulmonary infiltrates. 3. Small esophageal hiatal hernia. 4. No other acute findings.
[2023-06-24 08:21] VITALS: BP 170/97; O2SAT 96
[2023-06-24] MEDS: iohexol 350 mg/mL 500 mL Btl (per mL) IV (08:21)
[2023-06-24 09:44] VITALS: BP 138/71; O2SAT 98
== END 2023-06-24 09:44 | disposition home or self-care (01) ==
PROVIDERS: Emergency Provider Family Medicine; PCP Family Medicine
DX: R07.89 Other chest pain (principal); Z79.4 Long term (current) use of insulin; E11.9 Type 2 diabetes mellitus without complications; Z72.0 Tobacco use
CPT/HCPCS: 36415; 71045; 71275; 76705; 80053; 81001; 82550; 83605; 83690; 85025; 85378; 99285; Q9967

== ENCOUNTER → 2023-07-23 16:19 | Outpatient (BNVA) | payer MEDICAID, SELFPAY | PROVIDERS: PCP Family Medicine; Visit Provider Emergency Medicine | DX: S99.912A Unspecified injury of left ankle, initial encounter (principal); S99.922A Unspecified injury of left foot, initial encounter; M79.672 Pain in left foot; G89.29 Other chronic pain; M79.89 Other specified soft tissue disorders; X58.XXXA Exposure to other specified factors, initial encounter | CPT/HCPCS: 73610; 73630 ==

== ENCOUNTER 2025-01-16 14:52 | Emergency (ER) | payer MEDICAID, SELFPAY ==
--- OUTSIDE RECORDS SUMMARY | 2025-01-16 14:58 | XMS_ITS | Data Portability ---
Author Organization LIA Tito Rainey [facility] Address [address] [facility] [address] [place] [address] Care Team Providers Care Photolith Operator Name Role Phone MARTINA VARGHESE Primary Care Provider Assessment Encounter Date Assessment Date Assessment LastModified by Organization Details LastModified Time 07/27/2024 07/27/2024 Annual gynecological exam performed. Patient will come back in a year unless there are new symptoms. [email or web address] Not available 07/26/2024 19:26:35 Plan of Treatment Reminders Order Date Submit Date Provider Last Modified By Organization Details Last Modified Time Details Appointments None recorded. Lab hemoglobin A1C/hemoglo bin total, QN, blood 2024 025 [facility] [address] [place] [address] [address], [address], 15:05:49 Referral None recorded. Procedures None recorded. Surgeries None recorded. Imaging XR, lumbosacral spine, 2 or 3 view 2024 025 [email or web address] 2 [facility] ([facility]), [address] [place], [address], 14:37:12 XR, thoracic spine, 2 view 2024 025 [email or web address] 2 [facility] ([facility]), [address] [place], [address], 14:36:55 Medication Orders tizanidine 4 mg capsule 2024 025 [facility] [address], [address], [place], [address], 5 12:54:05 prednisone 20 mg tablet 2024 025 [facility] [address], [address], [place], [address], 5 16:54:04 metformin ER 500 mg tablet,exte nded release 24 hr 2024 025 [facility] [address], [address], [place], [address], 5 16:14:46 omeprazole 20 mg capsule,del ayed release 2024 025 [facility] [address], [address], [place], [address], 11:17:15 Patient TargetsNo targets recorded. Patient InstructionsNo instructions recorded. Reason for Referral None Reported. Results Created Date Observation Date Name Description Value Unit Range Abnormal Flag Note LastModifiedBy Organization Detail LastModifiedTime 07/28/1907/27/2024 HBA1C hemaglobin A1C 5.6 4.2-6. 5 Not Available [facility] [address], [place], [address], 07/27/2024 15:05:49 07/28/1907/30/2024 THINP REP TIS PAP AND HPV MRNA E6/E7 clinical information: normal Sushma l exam Not Available [employer] [facility] [address], [place], [address], 07/30/2024 17:53:54 07/28/1907/30/2024 THINP REP TIS PAP AND HPV MRNA E6/E7 LMP: normal NA Not Available [address] [address] [place], [address], 07/30/2024 17:53:54 07/28/19 25 07/30/2024 THINP REP TIS PAP AND HPV MRNA E6/E7 prev. Pap: normal NA Not Available [address] [address] [place], [address], 07/30/2024 17:53:54 07/28/19 25 07/30/2024 THINP REP TIS PAP AND HPV MRNA E6/E7 prev. BX: normal NA Not Available [address] [place], [address], 07/30/2024 17:53:54 07/28/19 25 07/30/2024 THINP REP TIS PAP AND HPV MRNA E6/E7 source: normal Cervi x, Endoc ervix Not Available [address] [place], [address], 07/30/2024 17:53:54 07/28/1907/30/2024 THINP REP TIS PAP AND HPV MRNA E6/E7 statement of adequacy: normal Satis facto ry for evalu ation . Endoc ervic al/tr ansfo rmati on zone compo nent prese nt. Age and/o r menst rual statu s not provi ded Not Available [address] [place], [address], 07/30/2024 17:53:54 07/28/19 25 07/30/2024 THINP REP TIS PAP AND HPV MRNA E6/E7 interpretati on/result: normal Cytol ogy Resul ts: Negat natanael for intra epith elial lesio n or jasmin river . Not Available [address] [address] [place], [address], 07/30/2024 17:53:54 07/28/19 25 07/30/2024 THINP REP TIS PAP AND HPV MRNA E6/E7 comment: normal This Pap test has been evalu ated with wilfred[employer] mor[employer] . Not Available [address] [address] [place], [address], 07/30/2024 17:53:54 07/28/19 25 07/30/2024 THINP REP TIS PAP AND HPV MRNA E6/E7 cytotechnolo gist: normal MVB, CT( CP) CT Scree rehana Locat ion: [address] [address] [place] [address] Not Available [facility] [address] [address] [place], [address], 07/30/2024 17:53:54 07/28/19 25 07/30/2024 THINP REP TIS PAP AND HPV MRNA E6/E7 comment EXPLA NATOR Y NOTE: The Pap is a scree rehana test for cervi bassem cance r. It is not a diagn ostic test and is subje ct to false negat natanael and false posit natanael resul ts. It is most relia ble when a satis facto ry sampl e, regul alycia obtai raciel, is submi tted with relev ant clini bassem findi ngs and histo ry, and when the Pap resul t is evalu ated along with histo kim and curre nt clini bassem infor matio n. Not Available [facility] [address] [address] [place], [address], 07/30/2024 17:53:54 07/28/19 25 07/30/2024 THINP REP TIS PAP AND HPV MRNA E6/E7 HPV MRNA E6/E7 Not Detect ed not detect ed normal Metho dolog y: Trans cript ion-M ediat ed Ampli ficat ion This assay detec ts E6/E7 viral messe nger RNA (mRNA ) from 14 high- risk HPV types (16,1 8,31, 33,35 ,39,4 5,51, 52,56 ,58,5 9,66, 68). Cervi bassem sourc es are requi red for HPV testi ng. If a vagin al sourc e from a patie nt who has had a total hyste recto my with remov al of cervi x was submi tted, pleas e conta ct the testi ng labor atory for alter nativ e testi ng optio ns. For addit ional infor perry agosto e refer to http: //[facility] stdia gnost ics.c om/fa q/FAQ 129v1 (This link if provi ded for infor jean mohamud/ educa doug l purpo ses only. ) Not Available [facility] [address] [place], [address], 07/30/2024 17:53:54 06/15/19 25 06/12/2024 XR, knee, 3 view No observ ation record ed. [facility] [address] [place], [address], 06/15/2024 14:38:50 08/29/19 25 08/26/2024 XR, lumbo sacra l spine , 2 or 3 view No observ ation record ed. [facility] [address] [place], [address], 08/31/2024 16:04:15 08/29/19 25 08/26/2024 XR, thora cic spine , 2 view No observ ation record ed. [facility] [address] [place], [address], 08/31/2024 16:04:16 Result Notes None recorded. Problems Name Problem SNOMED Code Status Onset Date Resolution Date Notes Provider Name and Address Organization Details Recorded Time 28259024 Completed 202209/17/2023 Martina Varghese MD [address] [place], [address] [place], [place] [address]Humza 14:30:54 Low back pain 841590325 Completed 202206/11/2024 Sis muse, [facility] 11:27:01 Pre-exist ing type 2 diabetes mellitus in 018225162 Completed 202206/11/2024 Sis Gambino null, [facility] 11:28:31 Gestation period, 19 weeks 25566173 Completed 202206/11/2024 Sis Gambino null, [facility] 11:26:15 Pain in round ligament in 901454122840 13822 Completed 202206/11/2024 Sis Gambino null, [facility] 11:27:35 Reduced movement 164209153 Completed 202206/11/2024 Sis Gambino null, [facility] 11:28:46 Gestation period, 23 weeks 46373820 Completed 202206/11/2024 Sis Gambino null, [facility] 11:26:24 Type 2 diabetes mellitus 43325940 Active 2022 Sis Gambino null, [facility] 5 11:25:14 Suspected abnormali ty affecting managemen t of mother 689257192283 47923 Completed 202306/11/2024 Sis Gambino null, [facility] 5 11:28:58 Gestation period, 35 weeks 36184485 Completed 202306/11/2024 Sis Gambino null, [facility] 5 11:26:32 Gestation period, 36 weeks 02981559 Completed 202306/11/2024 Sis Gambino null, [facility] 11:26:42 Gestation period, 37 weeks 91660281 Completed 202306/11/2024 Sis muse, [facility], ShaquilleCInna 11:26:50 Postpartu m erick n 21803829 [facility] 2023 [facility] 11:28:06 Swelling of lower leg 684651420 Completed 202306/11/2024 Sis muse, [facility] SamariaL.CInna 11:29:10 Menorrhag ia 043117598 Completed 202306/11/2024 [facility] 11:27:20 Menometro rrhagia 628167111 Completed 202306/11/2024 [facility] 11:27:11 Anterior abdominal wall mass 002088261 Completed 202306/11/2024 [facility] 11:25:37 Pain in left foot 468909028158 107 Completed 202306/11/2024 [facility] 11:27:28 Bilateral carpal tunnel syndrome 291397329311 63221 Completed 202306/11/2024 [facility] 11:25:56 Anxiety 06161663 Active 2023 [facility] L[facility]In[facility] 11:25:44 Polycysti c ovary syndrome 913555716 Active 2023 [facility] 5 11:27:51 Essential hypertens ion 42381663 Active 2024 [facility]manuel [facility] 5 11:26:04 Pain of left knee joint 806120731004 107 Active 2024 Sis Immanuel [facility] 5 12:30:48 Gastroeso phageal reflux disease 523556882 Active 2024 [facility] 5 16:46:21 Fatigue 81138455 Active 2024 [facility] 5 18:27:00 Backache 054248567 Active 2024 Martina Varghese MD [address] [place] [address], [address], [facility] 5 16:21:15 Chronic low back pain 085401167 Active 2024 Martina Varghese MD [address] [place] [phone], [facility] 5 16:22:17 Problem Notes None recorded. Procedures Surgical History Date Name Laterality Status Provider Name and Address Organization Details Recorded Time 5 Date of Last Pap Smear completed SARAVANAN BAUER [facility] 07/27/2024 15:03:16 Caesarean Section completed Sis Gambino [facility] 04/01/2024 14:25:44 tonsilectomy/a denoids completed CHELSEA TAYLOR [facility] 01/18/2023 18:56:28 Imaging Results None recorded. Procedure Notes None recorded. Medical Equipment None Reported. Allergies No known drug allergies Medications Name Sig Start Date Stop Date Status Note LastModified by Organization Details LastModified Time promethaz ine-DM 6.25 mg-15 mg/5 mL oral syrup QID/PRN 01/18 completed Recorded 04/02/20 03 3:22PM by Krunal Lobo, ACCESS SERVICES ASSISTANT, , Office Visit; Not Available Not Available Not Available IBU 800 mg tablet Take 1 tablet 3 times a day by oral route as needed. 09/16 completed Not Available Not Available Not Available tizanidin e 4 mg tablet TAKE 1 TABLET BY MOUTH THREE TIMES DAILY NEEDED FOR MUSCLE SPASM 08/26 completed Not Available Not Available Not Available prednison e 20 mg tablet TAKE 2 TABLETS BY MOUTH ONCE DAILY FOR 6 DAYS 08/26 completed Not Available Not Available Not Available Lantus U-100 Insulin 100 unit/mL subcutane ous solution INJECT 50 UNITS SUBCUTAN EOUSLY TWICE DAILY 04/01 completed Not Available Not Available Not Available pantopraz ole 40 mg tablet,de layed release TAKE 1 TABLET BY MOUTH TWICE DAILY 09/16 completed Not Available Not Available Not Available neomycin- polymyxin -dexameth 3.5 mg/mL-10, 000 unit/mL-0 .1% eye drops INSTILL 1 DROP INTO THE AFFECTED EYES EVERY 8 HOURS 08/17 completed Not Available Not Available Not Available lidocaine 5 % topical patch APPLY 1 PATCH BY TOPICAL ROUTE ONCE DAILY (MAY WEAR UP TO 12HOURS. ) 10/13 completed Not Available Not Available Not Available Humulin N NPH U-100 Insulin (isophane susp) 100 unit/mL subcutane ous INJECT 40 UNITS SUBCUTAN EOUSLY WITH BREAKFAS T AND 40 UNITS SUBCUTAN EOUSLY AT BEDTIME 10/13 completed Not Available Not Available Not Available hydrochlo rothiazid e 12.5 mg capsule Take 1 capsule by mouth once daily 2024 active Not Available Not Available Not Avai lable sertralin e 25 mg tablet Take 1 tablet by mouth once daily 01/13 completed pt doesn't feel the need to be on it anymore. Not Available Not Available Not Available omeprazol e 20 mg capsule,d elayed release Take 1 capsule by mouth once daily 2024 active Not Available Not Available Not Avai lable metformin ER 500 mg tablet,ex tended release 24 hr TAKE 2 TABLETS BY MOUTH ONCE DAILY active Not Available Not Available No t Available insulin lispro (U-100) 100 unit/mL subcutane ous pen INJECT 25 UNITS SUBCUTAN EOUSLY WITH BREAKFAS T, 37 UNITS WITH LUNCH AND 45 UNITS WITH DINNER. MAX 150 UNITS DAILY active Not Available Not Available No t Available escitalop juan 10 mg tablet TAKE 1 TABLET BY MOUTH ONCE DAILY active Not Available Not Available No t Available Sprintec (28) 0.25 mg-0.035 mg tablet Take 1 tablet every day by oral route. 08/26 completed Not Available Not Available Not Available insulin aspart (U-100) 100 unit/mL (3 mL) subcutane ous pen INJECT 45 UNITS WITH BREAKFAS T, 45 UNITS AT LUNCH, AND 45 UNITS AT DINER MAX DAILY 150 UNITS 04/01 completed Not Available Not Available Not Available Tri-Sprin mireya (28) 0.18 mg(7)/0.2 15 mg(7)/0.2 5 mg(7)-0.0 35 mg tablet TAKE 1 TABLET BY MOUTH ONCE DAILY 10/13 completed Not Available Not Available Not Available tizanidin e 4 mg capsule Take 1 capsule 3 times a day by oral route as needed, for muscle spasms. 2024 active Not Available Not Available Not Avai lable metformin BID 01/22 completed Recorded 04/02/20 03 2:28PM by Krunal Lobo, MADI, , Office Visit; Refill Quantity : 0; Not Available Not Available Not Available 04/01 completed Not Available Not Available Not Available Lantus Solostar U-100 Insulin 100 unit/mL (3 mL) subcutane ous pen INJECT 50 UNITS SUBCUTAN EOUSLY TWICE DAILY 2024 active Not Available Not Available Not Avai lable diclofena c 1 % topical gel APPLY 4 GRAMS TO THE AFFECTED AREA(S) BY TOPICAL ROUTE 4 TIMES PER DAY 2024 active Not Available Not Available Not Avai lable TechLITE Pen Needle 31 gauge x 5/16 USE DIRECTED active Not Available Not Available No t Available TechLITE Pen Needle 32 gauge x USE DIRECTED active Not Available Not Available No t Available Ozempic 0.25 mg or 0.5 mg (2 mg/1.5 mL) subcutane ous pen injector Start at 0.25 mg weekly for 4 weeks then increase to 0.5 mg weekly for 4 weeks. 06/12 completed Not Available Not Available Not Available Dexcom G6 Sensor device USE DIRECTED TO MONITOR BLOOD SUGAR AND CHANGE EVERY 10 DAYS active Not Available Not Available No t Available BD Veo Insulin Syringe Ultra-Fin e 0.3 mL 31 gauge x 15/ USE DIRECTED WITH INSULIN active Not Available Not Available No t Available Dexcom G6 Transmitt er device USE DIRECTED 2024 active Not Available Not Available Not Avai lable Ozempic 1 mg/dose (4 mg/3 mL) subcutane ous pen injector INJECT 1 MG SUBCUTAN EOUSLY ONCE WEEKLY active Not Available Not Available No t Available Mounjaro 5 mg/0.5 mL subcutane ous pen injector INJECT 0.5ML SUBCUTAN EOUSLY ONCE WEEKLY 06/12 completed Not Available Not Available Not Available Ozempic 0.25 mg or 0.5 mg (2 mg/3 mL) subcutane ous pen injector INJECT 0.5 MG SUB-Q ONCE WEEKLY active Not Available Not Available No t Available Vitals Date Recorded Body height Body mass index (BMI) Body weight Body temperature Oxygen saturation Oxygen saturation in Arterial blood by Pulse oximetry Heart rate Systolic And Diastolic Provider Name and Address Organization Details Last Updated DateTime 5 162.56 cm 63.3 kg/m2 954248. 79 g 97.6 [degF] 98 % 98 % 97 /min 130/84 mm[Hg] [facility] JUANCARLOS [facility] 5 10:56:28 Date Recorded Body height Body mass index (BMI) Body weight Body temperature Oxygen saturation Oxygen saturation in Arterial blood by Pulse oximetry Heart rate Systolic And Diastolic Provider Name and Address Organization Details Last Updated DateTime 5 162.56 cm 61.6 kg/m2 920096. 66 g 97.3 [degF] 97 % 97 % 94 /min 130/80 mm[Hg] SARAVANAN JUANCARLOS [facility] 15:08:53 Date Recorded Body height Body mass index (BMI) Body weight Oxygen saturation Oxygen saturation in Arterial blood by Pulse oximetry Heart rate Body temperature Systolic And Diastolic Provider Name and Address Organization Details Last Updated DateTime 162.56 cm 63.3 kg/m2 731988. 58 g 98 % 98 % 82 /min 98.2 [degF] 126/82 mm[Hg] Nadja Black [facility] 5 12:29:29 Date Recorded Body height Body mass index (BMI) Body weight Oxygen saturation Oxygen saturation in Arterial blood by Pulse oximetry Heart rate Respiratory rate Body temperature Systolic And Diastolic Provider Name and Address Organization Details Last Updated DateTime 162.56 cm 53.6 kg/m2 665989. 82 g 99 % 99 % 99 /min 18 /min 97.3 [degF] 120/76 mm[Hg] Sis Immanuel [facility] 16:04:37 Social History Question Answer Notes LastModified by Organizat ion Details LastModified Time Tobacco Smoking Status Former Smoker Sis Gambino [facility] 08/26/2024 16:08:03 Do You Have An Advance Directive? No Information not available 01/22/2023 Are You Blind Or Do You Have Difficulty Seeing? No Information not available 01/22/2023 What Is Your Level Of Caffeine Consumption? None Information not available 01/22/2023 Are You Deaf Or Do You Have Serious Difficulty Hearing? No Information not available 01/22/2023 What Type Of Diet Are You Following? REGULAR Information not available 01/22/2023 What Is The Highest Grade Or Level Of School You Have Completed Or The Highest Degree You Have Received? [id number] Information not available 01/22/2023 When Did You Quit Smoking? 1-5yearssin carleneastdelon bhakta [id number] Information not available 08/26/2024 Which Of Your Hands Is Dominant? Right Information not available 01/22/2023 What Is Your Relationship Status? Information not available 01/22/2023 Do You Use Your Seat Belt Or Car Seat Routinely? No Information not available 01/22/2023 Are You Sexually Active? Yes Information not available 01/22/2023 Do You Participate In Social Media? Yes Information not available 01/22/2023 Have You Recently Traveled Abroad? No Information not available 01/22/2023 Do You Have Difficulty Walking Or Climbing Stairs? No Information not available 01/22/2023 Are You Currently In School? No Information not available 01/22/2023 Do You Have Any Dietary Restrictions? No Information not available 01/22/2023 Sex: Unknown Functional Status Question Answer Note LastModified by RingRang ion Details LastModified Time Do you use any illicit or recreational drugs? No Information not available 01/22/2023 What is your level of alcohol consumption? None Information not available 01/22/2023 Are you currently employed? Yes Information not available 01/22/2023 Do you have access to reliable transportation? No Information not available 01/22/2023 What is your status? Information no t available 01/22/2023 Are you able to walk independently without assistance or assistive devices? YESWOREST Information not available 01/22/2023 Do you have difficulty doing errands alone? No Information not available 01/22/2023 Are you able to care for yourself independently? Yes Information not available 01/22/2023 Do you have difficulty dressing, bathing, grooming, or toileting? No Information not available 01/22/2023 Mental Status Question Answer Note LastModified by Organization D etails LastModified Time Do you have difficulty concentrating, remembering or making decisions? No Information no t available 01/22/2023 Family History Relationship Description Onset Age of this Age Resolved Age Notes LastModified by Organization Details LastModified Time Maternal Grandfather Malignant neoplastic disease amckale Not available 2022 10:08:21 Maternal Grandmother Malignant neoplasm of skin amckale Not available 2022 10:08:40 Medical History No medical history recorded. Gynecological History Statement/Question Response Abnormal Pap N Date of Last Pap Smear 07/27/2024 Date of LMP Obstetrics History GPAL:G 2 P 1 0 1 0 Type Value Multiple Births 0 Full Term 1 Induced 0 Spontaneous 1 Premature 0 Living 0 Ectopics 0 Total 2 Immunizations Vaccine Type Date Status Note Provider Nam e and Address Organization Details Recorded Time Tdap 03/19/2023 completed Martina Varghese MD [address] [place] [address], [phone], [facility] 03/20/2023 17:30:02 Past Encounters Encounter ID Performer Location Encounter Start Date Encounter Closed Date Diagnosis/Indication Diagnosis SNOMED-CT Code Diagnosis ICD10 Code Diagnosis IMO Codes Diagnosis Note [id number] Martina Varghese MD [facility] ([facility]) [address] [place] [phone] 01/22/2023 09:47:12 01/22/2023 15:42:52 Low back pain 146702553 M54.50 Discussed stretches, warm moist heat, and Tylenol. We will also provide some lidocaine patches to use. Pre-existi ng type 2 diabetes mellitus in 422708388 O24.112 Continue to follow-up with MFM. Anticipate to start serial growth ultrasound s starting at 32 weeks and weekly testing. Sees MFM on January 28 we will await their recommenda tions. Anticipato ry guidance provided. Gestation period, 19 weeks 64392461 Z3A.19 [id number] Martina Varghese MD [facility] ([facility]) [address] [place] [phone] 02/12/2023 14:22:01 02/12/2023 17:44:21 Pain in round ligament in 7347206941 4395744 O26.899 Pre-existi ng type 2 diabetes mellitus in 820917325 O24.112 Continue follow-up with MFM. The patient is providing weekly readings to them. Patient was encouraged to follow diabetic diet. Patient was informed of glucose in urine today. Reduced fe chuckie movement 248511777 O36.8199 Normal movement. Is still fairly early as far as taking regular movements. Reassured patient that movement and heart tones were well within normal limits by Doppler. [id number] Martina Varghese MD [facility] ([facility]) [address] [place] [phone] 02/19/2023 09:03:42 02/19/2023 11:37:23 Normal 00386763 Z34.82 Pre-existi ng type 2 diabetes mellitus in 231280173 O24.112 Significan t glucose in the urine today really suggest that her blood sugars are out of control and not consistent with reported blood sugars provided by the patient today. Stressed the importance of monitoring blood sugars. The patient does have an MFM appointmen t next week. For the patient's of concerns about his significan tly uncontroll ed blood sugar and the impact that could have on the . Patient expresses understand ing. We will see what [facility] recommends next week. Gestation period, 23 weeks 54984244 Z3A.23 [id number] Martina Varghese MD [facility] ([facility]) [address] [place] [phone] 03/19/2023 11:15:10 03/25/2023 10:11:00 Normal in multigravida 8227842458 60060 Z34.82 Pre-existi ng type 2 diabetes mellitus in 214850487 O24.112 Patient is having out-of-con trol glucose readings. Will have the patient pickle solution maker Novolin R to use in the meantime until she can get insurance or prescripti on assistance for her NovoLog. [id number] Martina Varghese MD [facility] ([facility]) [address] [place] [phone] 04/16/2023 10:37:02 04/16/2023 11:27:55 Normal in multigravida 7075113479 17042 Z34.82 No concerns on today's visit. Anticipato ry guidance provided and all questions answered. Pre-existi ng type 2 diabetes mellitus in 383436926 O24.112 Patient's blood sugars are doing significan tly better. Start testing with weekly NSTs and biophysica l profiles. Continue MFM follow-ups . Appointmen t is tomorrow. Patient intends to discuss delivery recommenda tions. [id number] Martina Varghese MD [facility] ([facility]) [address] [place] [address] [phone] 5 04/30/2023 09:19:23 04/30/2023 11:22:48 Pre-existing type 2 diabetes mellitus in [id number] O24.112 Recommend dropping the nighttime Lantus to 50 units. Patient is providing blood sugar readings to MFM weekly. Normal pre gnancy in multigravida [id number] Z34.82 Anticipato ry guidance provided and all questions answered. Suspected abnormality affecting management of mother [id number] O35.9XX9 Patient is scheduled for induction in [facility] on May 31. They intend to have specialist available at the time of delivery. [id number] Martina Varghese MD [facility] ([facility]) [address] [place] [address] [phone] 5 05/14/2023 09:47:53 05/14/2023 14:42:57 [id number] Z33.1 Pre-existi ng type 2 diabetes mellitus in [id number] O24.112 Continue to monitor blood sugars and providing readings to MFM. Suspected abnormality affecting management of mother [id number] O35.9XX9 Patient is scheduled for induction in [facility] on May 31. They intend to have specialist available at the time of delivery. Gestation period, 35 weeks [id number] Z3A.35 [id number] Martina Varghese MD [facility] ([facility]) [address] [place] [address] [phone] 5 05/20/2023 16:21:00 05/20/2023 17:09:14 Pre-existing type 2 diabetes mellitus in [id number] O24.112 Continue to monitor blood sugars and providing readings to MFM. Suspected abnormality affecting management of mother [id number] O35.9XX9 Patient is scheduled for induction in [facility] on May 31. They intend to have specialist available at the time of delivery. Gestation period, 36 weeks [id number] Z3A.36 [id number] Martina Varghese MD [facility] ([facility]) [address] [place] [address] [id number] 5 05/28/2023 09:46:33 05/31/2023 07:58:41 Pre-existing type 2 diabetes mellitus in [id number] O24.112 Continue to monitor blood sugars and providing readings to M. BPP's and NSTs have been reassuring . Induction at 38 weeks Suspected abnormality affecting management of mother [id number] O35.9XX9 Patient is scheduled for induction in [facility] on May 30. They intend to have specialist available at the time of delivery. Gestation period, 37 weeks [id number] Z3A.37 [id number] Martina Varghese MD [facility] ([facility]) [address] [place] [address] [phone] 5 06/12/2023 13:58:45 06/12/2023 14:56:28 depression 55546225 F53.0 Will start sertraline to help with depression . Plan to follow-up in 4 to 6 weeks. Swelling of lower leg 44 [id number] R22.42 Will obtain ultrasound for concerns for blood clot. The patient recently had C-sections which puts her at increased risk [id number] Martina Varghese MD [facility] ([facility]) [address] [place] [address] [phone] 5 06/18/2023 14:48:17 06/18/2023 16:17:59 [id number] Martina Varghese MD [facility] ([facility]) [address] [place] [address] [phone] 5 07/10/2023 11:18:07 07/10/2023 12:37:17 Contraception care management [id number] Z30.9 Discussed oral contracept olena and the importance of taking the medication every day at the same time every day. Follow-up if there are any issues. care [id number] Z39.2 No concerns on today's visit. depression 58 508202 F53.0 Doing better on sertraline . [id number] Martina Varghese MD [facility] ([facility]) [address] [place] [address] [phone] 5 09/17/2023 12:38:43 09/17/2023 13:13:41 Anterior abdominal wall mass 014425072 R19.09 Unsure of the etiology of the lesion. Start evaluation with ultrasound . Type 2 lis betes mellitus 35019008 E11.9 Discussed Ozempic including its risks and benefits. Patient opted to proceed with this medication . Ample provided today. [id number] Martina Varghese MD [facility] ([facility]) [address] [place] [address] [phone] 5 09/18/2023 14:40:39 09/19/2023 14:42:04 [id number] Martina Varghese MD [facility] ([facility]) [address] [place] [address] [phone] 5 10/14/2023 13:49:37 10/14/2023 15:26:58 Type 2 diabetes mellitus 60258502 E11.9 Educated the patient on insulin usage. Discussed titrating up the dose of insulin by 4 units until goals have been met. Check an A1c today. Patient expresses understand ing of the instructio ns. [id number] Martina Varghese MD [facility] ([facility]) [address] [place] [address] [phone] 5 01/14/2024 16:39:42 01/16/2024 11:04:45 Type 2 diabetes mellitus 61968368 E11.9 We will check A1c today., Otherwise continue insulin. Pain in left foot 842311 9064 [id number] M79.672 The pain is associated with a pressure type injury. The patient would benefit from some pressure relieving strategies and diabetic shoes. The patient was encouraged to wear shoes at all times. Will send podiatry referral to discuss options to help alleviate the pressure and pain. [id number] Martina Varghese MD [facility] ([facility]) [address] [place] [address] [phone] 5 04/01/2024 14:05:19 04/01/2024 15:01:41 Bilateral carpal tunnel syndrome [id number] G56.03 Patient's exam is consistent with carpal tunnel syndrome. Discussed wrist splinting at night. Type 2 lis betes mellitus 51455362 E11.9 Continue with insulin. Will check A1c next month. Anxiety 67112604 F41.9 Patient did not have a good response with sertraline so we will try escitalopr am Polycystic ovary syndrome 786123990 E28.2 The patient likely has irregular cycles related to weight and possible polycystic ovarian syndrome. Patient was open to trying metformin. [id number] Martina Varghese MD [facility] ([facility]) [address] [place] [address] [phone] 5 04/24/2024 10:05:48 04/24/2024 10:51:59 Type 2 diabetes mellitus 93669083 E11.9 A1c has significan tly improved to 6.4%. Will continue with Mounjaro and current interventi ons. Essential hypertension 98224680 I10 Blood pressure is elevated and in the context of edema, I would recommend treatment. We will start with thiazide diuretic. [id number] Martina Varghese MD [facility] ([facility]) [address] [place] [address] [phone] 5 06/12/2024 11:59:34 06/12/2024 12:46:15 Pain of left knee joint [id number] 85542 M25.562 Will obtain x-rays of the left knee joint. Home exercises provided to the patient to start doing. Continue with Tylenol as needed and will add diclofenac gel. Patient was encouraged to avoid squatting and kneeling. Follow-up if symptoms are not improving. [id number] Martina Varghese MD [facility] ([facility]) [address] [place] [address] [phone] 5 07/10/2024 10:34:24 07/10/2024 11:28:40 Gastroesophageal reflux disease 646613089 K21.9 Start PPI and see if this helps her symptoms. Polycystic ovary syndrome [id number] E28.2 The patient likely has irregular cycles related to weight and possible polycystic ovarian syndrome. Patient has not had any improvemen t with metformin. Patient has follow-up next month and will do a well woman exam at that time. [id number] Martina Varghese MD [facility] ([facility]) [address] [place] [address] [id number] 5 07/27/2024 14:59:18 07/27/2024 16:08:07 Polycystic ovary syndrome 231904748 E28.2 The patient likely has irregular cycles related to weight and polycystic ovarian syndrome. Will increase the dose of her metformin. Discussed possibly using control to help with cycle, once again but she has had mood issues on control. Patient is also still considerin g . Gynecologi c examination 97196502 Z01.419 No significan t concerns noted on exam. Pap smear was obtained. Family sony nning education 232234435 Z30.02 Courage patient to consider working on weight loss and underlying health issues before trying again. Patient will consider options. [id number] Martina Varghese MD [facility] ([facility]) [address] [place] [address] [phone] 5 07/27/2024 14:54:03 07/28/2024 11:07:48 Type 2 diabetes mellitus 80029507 E11.9 Ozempic is likely to be better covered by insurance. Will send that in today. [id number] MADI GIBBONS [facility] ([facility]) [address] [place] [address] [id number] 5 08/17/2024 12:18:41 08/17/2024 13:57:09 Chronic low back pain 105667294 M54.50 G89.29 [id number] Use tizanidine as prescribed .Apply a heating pad for 10 minutes every 2 hours while awake. Perform slow stretches 2 times a day.F/u with PCP in 1 week. [id number] Martina Varghese MD [facility] ([facility]) [address] [place] [address] [phone] 5 08/26/2024 15:58:09 08/26/2024 16:44:50 Backache 434357450 M54.9 [id number] Obtain x-rays to evaluate this further. Continue stretches, warm heat, and medication s to help with pain management . Discussed lifting restrictio ns. Chronic low back pain 27 2767433 M54.50 G89.29 [id number] X-rays of the low back will be included for full evaluation . Health Concerns Section Related Observation LastModified by Organization Detai ls LastModified Time None Recorded Concern Status LastModified by Organization Details LastModified Time None Recorded Advance Directives Directive N: Payers Insurance Date Sequence Insurance Name Policy Number Policy Yung Covered Member ID Yung Member ID Guarantor Name 05/20/2023 1 [facility] (MEDICAID HMO) Marina De La Torre Shalom [id number] Marina De La Torre Ruminer 07/28/2024 2 [place] Marina De La Torre Shalom [id number] Marina Burroughs 04/10/2023 1 *SELF PAY* Maxx Burroughs 08/23/2024 [place] [facility] (INSTITUTIONAL) Marina Britt Rausch [id number] Marina Britt Mirthaer 09/01/2024 [facility] (MEDICAID HMO) Marinachase Burroughs [id number] Marina Britt Mirthaer 05/20/2023 [facility] (MEDICAID HMO) Marina De La Torre Shalom [id number] Marina Shannoner 09/01/2024 1 [facility] (MEDICAID HMO) Marina D Mirthaer [id number] Marina Britt Mirthaer Notes Date Note Type Note Provider Name and Address Organization Details Recorded Time 07/10/2024 text/html Pt was having spotting for about a week but states that it was only after she did something strenuous. Pt states that she had some clots and then wouldn't spot anymore. Pt states that she hasn't had a period since march and didn't know if that could be it. Pt states that she hasn't had any cramping or pain. The patient has been having significant heartburn recently. Martina Varghese MD [address] [place] [address], [phone], [facility] 07/12/2024 15:08:03 07/27/2024 text/html Annual GYNReport ed by PatientHistoryFor history, patient reportspolycystic ovarian syndromebut reportsactively trying to conceive.Genitourinary symptomsFor menstrual cycle, patient reportsirregular cycle intervals(hasn't had period since march). For vulva, patient reportsno genital lesion. For vagina, patient reportsnormal vaginal discharge.Breast symptomsFor breast, patient reportsno breast painandno breast lump.Psychological symptomsFor psychological symptoms, patient reportsdepressionandan xiety(takes medication).ROS as noted in the HPI This is a 34-year-old female comes in today for well woman exam. Used to have no menstrual cycles and has a history of polycystic ovarian syndrome. Martina Varghese MD [address] [place], [phone], [facility] 07/28/2024 17:51:52 08/17/2024 text/html ROS as noted in the HPI walk inPt presents with c/o lower back pain for the last 2 years. Denies known injury. Has not spoken with her PCP regarding this. Pain stays in the lower back and sometimes radiates up to her shoulder blades. Standing for long periods or bending over increase the pain. MADI GIBBONS [address] [place] [address], [phone], [facility] 08/17/2024 13:42:20 08/26/2024 text/html Back PainReporte d by PatientHPIFor severity, patient reportspain level 8/10andinterferes with sleep. For location, patient reportslumbar bilateral(lambar up to cervical). For duration, patient reports1 years(started when she was and has gotten worse). For timing, patient reportschronic. For alleviating factors, patient reportsposition change. For quality, (stabbing spasm to cramping pain). For aggravating factors, (standing bending). patient her to f/u on a walk in visit for her back pain. The patient states that the pain starts in her low back and goes up between her shoulder blades. It is only noted minimal improvement with medications. Martina Varghese MD [address] [place] [address], [phone], [facility] 08/27/2024 18:03:36 OBGyn Episode Ob Episode Information Episode Created Date Number of Fetuses Patient Bloodtype Patient rh Status Prepregnancy Weight lbs Domestic Partner Domestic Partner Phone Father Name Corrosion Technician Status 01/23/20 23 1 Torres Burroughs CLOSED Fetus Data First Name Last Name Admitted to NICU Weight (g) Sex Living Outcome Pediatric Complications Fetus ID Race Codes Race Delivery Type false F Full Term 2424 Jackson Calculation Initial Jackson Date Initial Exam Date Initial Exam Provider Initial Ultrasound Date Last Menstrual Period Date Ultra Sound Weeks Gestation 06/13/2023 01/22/2023 0 Eighteen To Twenty Week Jackson Update Ultra Sound Date Fundal Height At Umbil Quickening Date Ultra Sound Latest Weeks Gestation Final Jackson Confirmed By Final Jackson Confirmed Date Final Jackson Date Ultra Sound Latest Days Gestation 0 [email or web address] 04/29/2023 06/13/19 24 0 Pre- Flowsheet Flowsheet Date 01/22/2023 Snow Score Blood Edema Fundus Height Fundus Units Glucose Ketones Leukocytes Nitrite Labor Signs Protein Cervic Dilation Cervic Effacement Cervic Station neg none none none neg Type Weight in lbs Pre/Post Dialysis Refused With clothes 327.120463392001 BP Diastolic BP Location Tested BP Systolic BP Type 80 R arm 132 sitting Fetus Heart Rate Present A 165 Fetus Movement Comments pt goes to [facility] every 6 weeks for diabetes Flowsheet Date 02/12/2023 Snow Score Blood Edema Fundus Height Fundus Units Glucose Ketones Leukocytes Nitrite Labor Signs Protein Cervic Dilation Cervic Effacement Cervic Station 22 cm none Negative trace Type Weight in lbs Pre/Post Dialysis Refused Weight 328.38444310197 BP Diastolic BP Location Tested BP Systolic BP Type 82 L arm 124 sitting Fetus Heart Rate Present A 150 Fetus Movement A Yes Comments Flowsheet Date 02/19/2023 Snow Score Blood Edema Fundus Height Fundus Units Glucose Ketones Leukocytes Nitrite Labor Signs Protein Cervic Dilation Cervic Effacement Cervic Station Type Weight in lbs Pre/Post Dialysis Refused With clothes 334.701932925698 BP Diastolic BP Location Tested BP Systolic BP Type 80 L arm 158 sitting Fetus Heart Rate Present Fetus Movement Comments Flowsheet Date 02/19/2023 Snow Score Blood Edema Fundus Height Fundus Units Glucose Ketones Leukocytes Nitrite Labor Signs Protein Cervic Dilation Cervic Effacement Cervic Station neg trace 25 cm 4+ none Negative trace Type Weight in lbs Pre/Post Dialysis Refused With clothes 334.602616195841 BP Diastolic BP Location Tested BP Systolic BP Type 80 L arm 158 sitting Fetus Heart Rate Present A 180 Fetus Movement Comments Flowsheet Date 03/19/2023 Snow Score Blood Edema Fundus Height Fundus Units Glucose Ketones Leukocytes Nitrite Labor Signs Protein Cervic Dilation Cervic Effacement Cervic Station 28 cm 4+ none Negative trace Type Weight in lbs Pre/Post Dialysis Refused With clothes 333.941534551725 BP Diastolic BP Location Tested BP Systolic BP Type 80 L arm 154 sitting Fetus Heart Rate Present A 160 Fetus Movement A Yes Comments Tdap given IM in left deltoi d. tcg Flowsheet Date 04/16/2023 Snow Score Blood Edema Fundus Height Fundus Units Glucose Ketones Leukocytes Nitrite Labor Signs Protein Cervic Dilation Cervic Effacement Cervic Station neg 31 cm 1+ none Negative none 1+ Type Weight in lbs Pre/Post Dialysis Refused With clothes 340.750963584352 BP Diastolic BP Location Tested BP Systolic BP Type 86 L arm 134 sitting Fetus Heart Rate Present A 150 Fetus Movement A Yes Comments Flowsheet Date 04/30/2023 Snow Score Blood Edema Fundus Height Fundus Units Glucose Ketones Leukocytes Nitrite Labor Signs Protein Cervic Dilation Cervic Effacement Cervic Station neg trace 34 cm 3+ trace Negative trace Type Weight in lbs Pre/Post Dialysis Refused With clothes 337.374290551993 BP Diastolic BP Location Tested BP Systolic BP Type 84 R arm 136 sitting Fetus Heart Rate Present A 160 Fetus Movement A Yes Comments Pt states that she is being induced on 05/31/23. Pt states that her sugars are dropping at night. Flowsheet Date 05/14/2023 Snow Score Blood Edema Fundus Height Fundus Units Glucose Ketones Leukocytes Nitrite Labor Signs Protein Cervic Dilation Cervic Effacement Cervic Station 35 cm none 2+ Negative trace Type Weight in lbs Pre/Post Dialysis Refused With clothes 344.588979721623 BP Diastolic BP Location Tested BP Systolic BP Type 98 L arm 142 sitting Fetus Heart Rate Present A 145 Fetus Movement A Yes Comments GBS COLLECTED AND SENT TO [facility]. URINE SENT TO LAB Flowsheet Date 05/18/2023 Snow Score Blood Edema Fundus Height Fundus Units Glucose Ketones Leukocytes Nitrite Labor Signs Protein Cervic Dilation Cervic Effacement Cervic Station Type Weight in lbs Pre/Post Dialysis Refused BP Diastolic BP Location Tested BP Systolic BP Type Fetus Heart Rate Present Fetus Movement Comments GBS negative Flowsheet Date 05/20/2023 Snow Score Blood Edema Fundus Height Fundus Units Glucose Ketones Leukocytes Nitrite Labor Signs Protein Cervic Dilation Cervic Effacement Cervic Station 1+ none Negative trace Type Weight in lbs Pre/Post Dialysis Refused With clothes 346.40138683682 BP Diastolic BP Location Tested BP Systolic BP Type 86 L arm 134 sitting Fetus Heart Rate Present Fetus Movement Comments Flowsheet Date 05/28/2023 Snow Score Blood Edema Fundus Height Fundus Units Glucose Ketones Leukocytes Nitrite Labor Signs Protein Cervic Dilation Cervic Effacement Cervic Station 38 cm none 1+ Negative neg Type Weight in lbs Pre/Post Dialysis Refused With clothes 342.889486204670 BP Diastolic BP Location Tested BP Systolic BP Type 86 R arm 134 sitting Fetus Heart Rate Present A 160 Fetus Movement A Yes Comments Flowsheet Date 06/12/2023 Snow Score Blood Edema Fundus Height Fundus Units Glucose Ketones Leukocytes Nitrite Labor Signs Protein Cervic Dilation Cervic Effacement Cervic Station Type Weight in lbs Pre/Post Dialysis Refused With clothes 337.975839392045 BP Diastolic BP Location Tested BP Systolic BP Type 84 L arm 140 sitting Fetus Heart Rate Present Fetus Movement Comments Flowsheet Date 06/18/2023 Snow Score Blood Edema Fundus Height Fundus Units Glucose Ketones Leukocytes Nitrite Labor Signs Protein Cervic Dilation Cervic Effacement Cervic Station Type Weight in lbs Pre/Post Dialysis Refused BP Diastolic BP Location Tested BP Systolic BP Type Fetus Heart Rate Present Fetus Movement Comments Flowsheet Date 07/10/2023 Snow Score Blood Edema Fundus Height Fundus Units Glucose Ketones Leukocytes Nitrite Labor Signs Protein Cervic Dilation Cervic Effacement Cervic Station Type Weight in lbs Pre/Post Dialysis Refused With clothes 320.012240759381 BP Diastolic BP Location Tested BP Systolic BP Type 88 L arm 150 sitting Fetus Heart Rate Present Fetus Movement Comments Flowsheet Date 09/17/2023 Snow Score Blood Edema Fundus Height Fundus Units Glucose Ketones Leukocytes Nitrite Labor Signs Protein Cervic Dilation Cervic Effacement Cervic Station Type Weight in lbs Pre/Post Dialysis Refused With clothes 322.252078969856 BP Diastolic BP Location Tested BP Systolic BP Type 84 L arm 130 sitting Fetus Heart Rate Present Fetus Movement Comments Menstrual History Last Menstrual Date Menses Monthly On Bcp Conception Prior Menses Frequency Hcg Plus Date Menarche Onset Age Genetic Screening And Infection History Question Response Note Patient's Age Will Be 35 Yea rs Or Older At Estimated Date of Delivery false Thalassemia (Congolese, Ukrainian, Mediterranean, Or Background): MCV < 80 false Neural Tube Defect (Meningom yelocele, Spina Bifida, Or Anencephaly) false Congenital Heart Defect false Down Syndrome false Chad-Sachs (eg, Quaker, Cajun, South African-Tongan) f alse Jeremy Disease false Sickle Cell Disease Or Trait () false Hemophilia Or Other Blood Disorders false Muscular Dystrophy false Cystic Fibrosis false Yair's Chorea false Intellectual Disability/Autism false If Yes, Was Person Tested For Fragile X? false Other Inherited Genetic Or Chromosomal Disorder false Maternal Metabolic Disorder (eg, Type 1 Diabetes, PKU) true type 2 diabetic Patient Or Baby's Father Had A Child With Defects Not Listed Above false Recurrent Loss, Or A Stillbirth true 1 Medications (including Suppl ements, Vitamins, Herbs, OTC Drugs), Illicit/Recreational Drugs, Alcohol true hUmalog, lantus, prenatals If Yes, Agent(s) And Strength/Dosage false Any Other Genetic History false Live With Someone With TB Or Exposed To TB false Patient Or Partner Has History Of Genital Herpes false Rash Or Viral Illness Since Last Menstrual Perio d false History Of STD, Gonorrhea, C hlamydia, HPV, Syphilis false Other Infection History true MRSA, [facility] History of HIV false History of Hepatitis false Prior GBS-infected child false Hemoglobinopathy Or Carrier false Other Structural Defect false Recent Travel History Outside of Country false Mental Retardation/Autism false Delivery Information Delivery Date Delivery Type Labor Anesthesia Weeks Gestation Incision Type Labor Labor Length Hrs Delivered By Post Complications Tubal Sterilization Discharge Date Comments 4 38.1 Low Transvers e None Discharge Information Feeding Method Contraceptive Method Maternal HG B and HCT Levels Combination Ob Episode Information Episode Created Date Number of Fetuses Patient Bloodtype Patient rh Status Prepregnancy Weight lbs Domestic Partner Domestic Partner Phone Father Name Corrosion Technician Status 06/12/19 24 1 CLOSED Fetus Data First Name Last Name Admitted to NICU Weight (g) Sex Living Outcome Pediatric Complications Fetus ID Race Codes Race Delivery Type 2692.97 5704 F Full Term 3804 Jackson Calculation Initial Jackson Date Initial Exam Date Initial Exam Provider Initial Ultrasound Date Last Menstrual Period Date Ultra Sound Weeks Gestation 0 Eighteen To Twenty Week Jackson Update Ultra Sound Date Fundal Height At Umbil Quickening Date Ultra Sound Latest Weeks Gestation Final Jackson Confirmed By Final Jackson Confirmed Date Final Jackson Date Ultra Sound Latest Days Gestation 0 0 Menstrual History Last Menstrual Date Menses Monthly On Bcp Conception Prior Menses Frequency Hcg Plus Date Menarche Onset Age Delivery Information Delivery Date Delivery Type Labor Anesthesia Weeks Gestation Incision Type Labor Labor Length Hrs Delivered By Post Complications Tubal Sterilization Discharge Date Comments 4 38 ALBERTS MFM Discharge Information Feeding Method Contraceptive Method Maternal HG B and HCT Levels
[2025-01-16 14:59] VITALS: BP 180/90; PULSE 99; RESP 17; TEMP 36.5; O2SAT 98; BMI 60.0
--- NOTE | 2025-01-16 15:01 | XRR_ITS ---
PROCEDURE INFORMATION: Exam: XR Left Hip Exam date and time: 01/16/2025 3:02 PM Age: 35 years old Clinical indication: Injury or trauma; Fall; Blunt trauma (contusions or hematomas); Left; Groin and hip; Additional info: Fall, left hip pain. With pelvis TECHNIQUE: Imaging protocol: Radiologic exam of the left hip. Views: 2 or 3 views hip with pelvis when performed. COMPARISON: CT abdomen pelvis w con* [id number] 05/01/2019 8:30 PM FINDINGS: Bones/joints: Unremarkable. No acute fracture. Soft tissues: Unremarkable. XR/XR hip LT 2-3V wo/w pel* [id number] IMPRESSION: No identified fracture or dislocation.
--- NOTE | 2025-01-16 15:14 | W.ED.EXTPRO ---
HPI - Extremity Problem General: Chief complaint: Extremity Injury, Lower Stated complaint: LT hip injury Time Seen by Provider: 01/16/25 14:59 History of Present Illness: 35-year-old female with a history of obesity, hypertension and diabetes who presents to the emergency room with left hip pain. She says she was trying to get into a truck and her hip caught . It has been hurting since and is difficult to walk on. No shortening or rotation. Related Data Home Medications ?Medication ?Instructions ?Recorded ?Confirmed snehaldha root extract 300 mg 600 mg PO DAILY 01/16/25 01/16/25 capsule escitalopram oxalate 20 mg tablet 20 mg PO DAILY 01/16/25 01/16/25 hydrochlorothiazide 12.5 mg capsule 12.5 mg PO DAILY 01/16/25 01/16/25 insulin glargine 100 unit/mL (3 50 unit SUBCUT BID 01/16/25 01/16/25 mL) subcutaneous pen (Lantus Solostar U-100 Insulin) insulin lispro 100 unit/mL See Rx Instructions .Route .COMPLEX 01/16/25 01/16/25 subcutaneous pen metformin 500 mg tablet,extended 1,000 mg PO DAILY 01/16/25 01/16/25 release 24 hr omeprazole 20 mg capsule,delayed 20 mg PO DAILY 01/16/25 01/16/25 release semaglutide 2 mg/dose (8 mg/3 mL) 2 mg SUBCUT Q7D 01/16/25 01/16/25 subcutaneous pen injector (Ozempic) Previous Rx's ?Medication ?Instructions ?Recorded diclofenac sodium 50 mg 50 mg PO BID PRN pain #14 tabs 01/16/25 tablet,delayed release hydrocodone 5 mg-acetaminophen 325 1 tab PO Q6H PRN pain #20 tabs 01/16/25 mg tablet prednisone 20 mg tablet 60 mg (3 x 20 mg) PO DAILY 5 days 01/16/25 #15 tabs Allergies Allergy/AdvReac Type Severity Reaction Status Date / Time No Known Allergies Allergy Verified 07/12/24 11:16 Review of Systems Narrative: Constitutional symptoms: Negative except as documented in HPI. Skin symptoms: Negative except as documented in HPI. Eye symptoms: Negative except as documented in HPI. ENMT symptoms: Negative except as documented in HPI. Respiratory symptoms: Negative except as documented in HPI. Cardiovascular symptoms: Negative except as documented in HPI. Gastrointestinal symptoms: Negative except as documented in HPI. Genitourinary symptoms: Negative except as documented in HPI. Musculoskeletal symptoms: Negative except as documented in HPI. Neurologic symptoms: Negative except as documented in HPI. Psychiatric symptoms: Negative except as documented in HPI. Endocrine symptoms: Negative except as documented in HPI. [facility] ED PFSH: Medical History (Updated 01/16/25 @ 16:22 by Sowmya King MD) Diabetes Surgical History No significant past surgical history Social History Smoking and tobacco/nicotine status: never used tobacco/nicotine Physical Exam Narrative: EXAM NARRATIVE: General: Alert, no acute distress. Skin: Warm, dry. Head: Normocephalic, atraumatic. Neck: Supple, trachea midline. Eye: Extraocular movements are intact. Ears, nose, mouth and throat: mucosa moist. Cardiovascular: Regular, Normal peripheral perfusion. Respiratory: Lungs are clear to auscultation, respirations are non-labored, breath sounds are equal, Symmetrical chest wall expansion. Gastrointestinal: Soft, Nontender, Non distended Musculoskeletal: No obvious deformity. No shortening or rotation. Pain with movement and walking Neurological: Alert and oriented, No focal neurological deficit observed. Psychiatric: Cooperative, appropriate mood & affect. Course Vital Signs: Vital signs: Vital Signs Temperature 97.7 F 01/16/25 14:59 Pulse Rate 99 01/16/25 14:59 Respiratory Rate 17 01/16/25 14:59 Blood Pressure 180/90 01/16/25 14:59 Pulse Oximetry 98 01/16/25 14:59 Oxygen Delivery Me thod Room Air 01/16/25 14:59 MDM - Extremity (Nontraumatic) Medical Decision Making Medical decision making: Differential diagnosis including but not limited to and based on the above HPI, review of systems and physical exam: In this patient with a musculoskeletal extremity traumatic injury and x-ray is being ordered to rule out fractures and dislocations. Orders placed to evaluate differential diagnosis based on the above differential, HPI and physical exam X-ray of the left hip and pelvis: No obvious acute fractures or dislocations. Films were interpreted by myself the emergency room provider and pending final radiology review. I reviewed the patient's medical record. Reexamination: Patient still not wanting to bear weight. Provided with crutches. Follow-up with orthopedics. Assessment and plan: Hip injury - Discharged home - Discussed plan with patient. Answered any questions. - Evaluation and treatment of this problem were appropriate in the emergency setting. XR interpretation done by ED provider, pending radiology final review Discharge Plan Discharge Patient Disposition: Home Clinical Impression: Hip strain Condition: Stable Prescriptions: New hydrocodone-acetaminophen 5-325 mg tablet 1 tab PO Q6H PRN (Reason: pain) Qty: 20 0RF prednisone 20 mg tablet 60 mg PO DAILY 5 Days Qty: 15 0RF diclofenac sodium 50 mg tablet,delayed release (DR/EC) 50 mg PO BID PRN (Reason: pain) Qty: 14 0RF No Action hydrochlorothiazide 12.5 mg capsule 12.5 mg PO DAILY Patient Comments: STATES SHE ISN'T TAKING omeprazole 20 mg capsule,delayed release(DR/EC) 20 mg PO DAILY metformin 500 mg tablet extended release 24 hr 1,000 mg PO DAILY insulin lispro 100 unit/mL insulin pen See Rx Instructions .ROUTE .COMPLEX Rx Instructions: subcutaneously escitalopram oxalate 20 mg tablet 20 mg PO DAILY insulin glargine [Lantus Solostar U-100 Insulin] 100 unit/mL (3 mL) insulin pen 50 unit SUBCUT BID ashwagandha root extract 300 mg Capsule 600 mg PO DAILY Ozempic 2 mg/dose (8 mg/3 mL) pen injector 2 mg SUBCUT Q7D Discharge Orders: Discharge ED (Routine); Ordered 01/16/25 Ordered By: Sowmya King Referrals: Vimal Burroughs DO [Physician, Orthopedics] - 4-7 days Referral Note: Please call for follow-up appointment if pain persist Sheila Chicas PA [Primary Care Provider, Physicians Web Editor] Discharge Diet: Usual diet Discharge Activity: Increase activity as tolerated Patient Instructions: Opioid Safety, Pain Management, Patient Portal & Júnior Instructions Activity Restrictions/Additional Instructions: Thank you for choosing [facility] for your healthcare needs today. You have been screened and evaluated and felt safe for discharge. Health conditions do change or evolve sometimes and as such it is important that you follow up with your Primary Doctor to be re checked, 3-5 days is a general good time frame for follow up. 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
[2025-01-16] MEDS: HYDROcodone-acetaminophen 10-325 mg Tablet 1 TAB PO (16:13)
== END 2025-01-16 17:25 | disposition home or self-care (01) ==
PROVIDERS: Emergency Provider Emergency Medicine; PCP Physician Assistant
DX: S76.012A Strain of muscle, fascia and tendon of left hip, initial encounter (principal); Z79.4 Long term (current) use of insulin; E11.9 Type 2 diabetes mellitus without complications; X58.XXXA Exposure to other specified factors, initial encounter
CPT/HCPCS: 73502; 96372; 99284; J1885; J9999